=== PATIENT | male | born 1950 | race Caucasian/White ===

== ENCOUNTER 2025-06-22 10:45 | Emergency (ER) | payer MEDICARE, SELFPAY ==
[2025-06-22] VITALS (23 sets, daily range): BP systolic 113–143; BP diastolic 74–89; PULSE 85–103; RESP 9–20; TEMP 36.4–36.7; O2SAT 97–100
--- NOTE | ~2025-06-22 | XR_ITS ---
XR chest 2V 06/22/2025 13:40 Indication: Weakness after fall Procedure: 2 view chest Comparison: No prior studies for comparison. Findings: Subtle basilar airspace disease. Small pleural effusions. Atherosclerosis and ectasia of the aorta. Heart size normal. No acute osseous abnormality identified. There is diffuse idiopathic skeletal hyperostosis (DISH) of the thoracic spine. Impression: 1: Subtle posterior basilar airspace disease, best seen on the lateral view. Differential diagnosis includes atelectasis and pneumonia. 2: Small pleural effusions. Reviewed, dictated and finalized at location O. Impression: 1: Subtle posterior basilar airspace disease, best seen on the lateral view. Di fferential diagnosis includes atelectasis and pneumonia. 2: Small pleural effusions.
--- NOTE | ~2025-06-22 | CT_ITS ---
EXAMINATION: CT brain wo con DATE: 06/22/2025 13:27 INDICATION: Fall. Ataxia. TECHNIQUE: Computed tomography (CT) of the head was performed without intravenous contrast. Sagittal and coronal reconstructions were performed. The mA was adjusted according to patient size. Iterative reconstruction technique was employed. The dose-length product was 756.67 mGy-cm. COMPARISON: None FINDINGS: No fracture. No acute intracranial hemorrhage, acute infarction or abnormal extra axial fluid collection. There is mild scattered white matter hypoattenuation consistent with chronic small vessel ischemic disease. Symmetric prominence of the sulci and ventricles consistent with mild age-appropriate d iffuse cerebral volume loss. Ventricles are normal and symmetric. No mass/mass effect. The orbits, paranasal sinuses and mastoid air cells are normal. Intracranial calcified cerebral atherosclerosis is noted. IMPRESSION: 1. No fracture or acute intracranial process. 2. Age-related changes including mild diffuse on loss and mild scattered white matter hypoattenuation consistent with chronic small vessel ischemic disease. Reviewed, dictated and finalized at location A.
--- NOTE | 2025-06-22 12:55 | ED.FALL ---
HPI - Fall General Chief Complaint: Fall Stated Complaint: loosing balance, multiple falls, start end of February Time Seen by Provider: 06/22/25 12:02 History of Present Illness HPI Narrative: Patient is a 75-year-old male who presents ER with increased weakness and falls worsening over last 2 and half months. Patient has history of pancreatic cancer and underwent a Whipple surgery 1 year ago. He was cared for at [facility]. He recently moved down here due to inability to afford living in [place] and he has family who lives down here. Patient denies any lateralizing weakness to the arms or legs. He has gone from walking with a cane to walking with a walker and still falling. No new numbness or tingling. He has been eating and drinking. Reports his pancreatic cancer may have spread to his lungs and he had had a surveillance CT several months ago and does not believe there is any change. He is not receiving any chemotherapy. Related Data Allergies Allergy/AdvReac Type Severity Reaction Status Date / Time No Known Allergies Allergy Verified 06/22/25 10:47 Review of Systems Review of Systems: All systems reviewed & are unremarkable except as noted in HPI and below Constitutional: Constitutional: Reports no additional constitutional complaints Cardiovascular: Cardiovascular: Reports no additional cardiovascular complaints Respiratory: Respiratory: Reports no additional respiratory complaints Gastrointestinal: Gastrointestinal: Reports no additional gastrointestinal complaints PMFSH Past Medical History Medical History (Updated 06/22/25 @ 16:08 by Yovany Prabhakar MD) Pancreatic cancer Surgical History Surgical History (Updated 06/22/25 @ 12:58 by Yovany Prabhakar MD) H/O Whipple procedure Exam Narrative: GENERAL: Frail-appearing, well-nourished, and in no acute distress. HEAD: Normocephalic, atraumatic. ENT: Mucous membranes moist. CHEST: Clear to auscultation. No respiratory distress. HEART: Regular rate and rhythm. Normal peripheral pulses. ABDOMEN: Soft, nontender, nondistended. EXTREMITIES: Normal range of motion. No edema. SKIN: Warm, dry, no rash. NEURO: Alert and oriented x3. Normal finger-nose testing and [id number] testing. No upper/lower extremity drift. Clear speech with no dysarthria or expressive aphasia. No facial droop. Course Course Emergency Course: Patient resting comfortably. Up and ambulatory with his walker without issue. No abnormal labs or imaging. I do not feel he has pneumonia. Vital Signs Vital signs: Vital Signs Temperature 97.5 F L 06/22/25 11:13 Pulse Rate 95 06/22/25 11:13 Respiratory Rate 16 06/22/25 11:13 Blood Pressure 129/74 06/22/25 11:13 Pulse Oximetry 99 06/22/25 11:13 Oxygen Delivery Room Air 06/22/25 11:13 Temperature 98.0 F 06/22/25 12:06 Pulse Rate 86 06/22/25 14:45 Respiratory Rate 10 L 06/22/25 14:45 Blood Pressure 130/79 06/22/25 14:31 Pulse Oximetry 97 06/22/25 14:45 Oxygen Delivery Room Air 06/22/25 12:06 MDM - Fall Lab Data 06/22/25 13:00 06/22/25 14:11 Labs: Lab Results 06/22/25 06/22/25 Range/Units 13:00 14:11 WBC 6.7 (4.5-10.0) K/mm3 RBC 4.71 (4.6-6.20) M/mm3 Hgb 12.8 L (14.0-18.0) g/dL Hct 40.0 L (42.0-52.0) % MCV 84.9 (80-100) fl MCH 27.2 (26-34) pg MCHC 32.0 (32-36) g/dl RDW 16.0 H (11.5-14.5) % Plt Count 184 (150-375) k/mm3 MPV 11.2 H (7.4-10.4) fl Immature Gran % (Auto) 0.4 (0-0.5) % Neut % (Auto) 70.3 (45.5-73.1) % Lymph % (Auto) 18.4 (18.3-44.2) % [place] % (Auto) 9.3 H (2.6-8.5) % Eos % (Auto) 1.0 (0-4.4) % Baso % (Auto) 0.6 (0.2-1.2) % Lymph # (Auto) 1.23 (0.9-3.2) K/mm3 [place] # (Auto) 0.6 (0.1-0.6) K/mm3 Eos # (Auto) 0.1 (0-0.3) K/mm3 Baso # (Auto) 0.0 (0.0-0.1) K/mm3 Abs Immat Gran (auto) 0.03 (0.00-0.031) K/mm3 Absolute Neuts (auto) 4.7 (1.3-6.7) K/mm3 Absolute Nucleated RBC 0.000 (0.0-0.012) K/mm3 Nucleated RBC % 0.0 (0.0-0.2) % PT 18.0 H (11.1-14.7) Seconds INR 1.5 APTT 34.9 (22.3-36.8) Seconds Sodium 136 L (137-145) mmol/L Potassium 3.4 (3.4-5.0) mmol/L Chloride 103 (98-107) mmol/L Carbon Dioxide 25 (22-30) mmol/L Anion Gap 8 (4-12) mmol/L BUN 13 (9-20) mg/dL Creatinine 0.59 L (0.7-1.3) mg/dL Estim Creat Clear Calc 97 ml/min Estimated GFR > 60 (59 - ) Glucose 85 (65-110) mg/dL Calcium 8.6 (8.4-10.2) mg/dL Total Bilirubin 1.1 (0.2-1.3) mg/dL Direct Bilirubin 0.0 (0-0.3) mg/dL AST 32 (17-59) U/L ALT 19 (6-50) U/L Alkaline Phosphatase 122 (38-126) U/L Ammonia 28 (9-30) umol/L Total Protein 6.8 (6.3-8.2) g/dL Albumin 3.3 L (3.5-5.1) g/dL Imaging Data Radiologist's impression: ITS Impressions Head CT 06/22/25 13:30 IMPRESSION: 1. No fracture or acute intracranial process. 2. Age-related changes including mild diffuse on loss and mild scattered white matter hypoattenuation consistent with chronic small vessel ischemic disease. Chest X-Ray 06/22/25 13:46 Impression: 1: Subtle posterior basilar airspace disease, best seen on the lateral view. Differential diagnosis includes atelectasis and pneumonia. 2: Small pleural effusions. Discharge Plan Discharge Clinical Impression: Generalized weakness Patient Disposition: Home Condition: Stable Instructions: Weakness (ED) Additional Instructions: Return to the ER if you have fever over 101F, you cannot keep down food/water, you lose consciousness, or you have other concerns. Patient Language: Citizen Of [place] Follow-up/Referrals: Anthony Gil MD [Primary Care Provider, [facility]] - 1 Week
[2025-06-22 13:06] LABS: Hematocrit 40.0 % (42.0-52.0); Hemoglobin 12.8 g/dL (14.0-18.0); Immature Granulocyte Percent A 0.4 % (0-0.5); Lymphocytes Absolute Auto 1.23 K/mm3 (0.9-3.2); Mean Corpuscular HGB Conc 32.0 g/dl (32-36); Mean Corpuscular Hemoglobin 27.2 pg (26-34); Mean Corpuscular Volume 84.9 fl (80-100); Nucleated Red Blood Cells Absolute Auto 0.000 K/mm3 (0.0-0.012); Nucleated Red Blood Cells Perc 0.0 % (0.0-0.2); Platelet Count Result 184 k/mm3 (150-375); Red Blood Count 4.71 M/mm3 (4.6-6.20); White Blood Count 6.7 K/mm3 (4.5-10.0)
[2025-06-22] MEDS: SODIUM CHLORIDE 0.9% IV 1,000 ML 999 ML IV CONT (13:14)
[2025-06-22 14:32] LABS: INR 1.5; Prothrombin Time 18.0 Seconds (11.1-14.7)
[2025-06-22 14:33] LABS: Partial Thromboplastin Time 34.9 Seconds (22.3-36.8)
[2025-06-22 14:41] LABS: Ammonia 28 umol/L (9-30)
[2025-06-22 14:42] LABS: Anion Gap 8 mmol/L (4-12); Blood Urea Nitrogen 13 mg/dL (9-20); Calcium 8.6 mg/dL (8.4-10.2); Carbon Dioxide 25 mmol/L (22-30); Chloride 103 mmol/L (98-107); Estimated CRCL calculation 97 ml/min; Estimated Glomerular Filt Rate > 60; Glucose 85 mg/dL (65-110); Potassium 3.4 mmol/L (3.4-5.0); Sodium 136 mmol/L (137-145)
[2025-06-22 14:46] LABS: Alanine Aminotransferase 19 U/L (6-50); Albumin Level 3.3 g/dL (3.5-5.1); Alkaline Phosphatase 122 U/L (38-126); Aspartate Amino Transferase 32 U/L (17-59); Bilirubin,Total 1.1 mg/dL (0.2-1.3); Total Protein 6.8 g/dL (6.3-8.2)
--- NOTE | 2025-06-22 15:44 | PC.NURSE ---
RN ambulated patient with one person assist, patient MD delrois notified.
== END 2025-06-22 16:23 | disposition home or self-care (01) ==
PROVIDERS: Emergency Provider Emergency Medicine; PCP Family Medicine
DX: R53.1 Weakness (principal); Z85.07 Personal history of malignant neoplasm of pancreas; J90 Pleural effusion, not elsewhere classified; R91.8 Other nonspecific abnormal finding of lung field
CPT/HCPCS: 36415; 70450; 71046; 80048; 80076; 82140; 85025; 85610; 85730; 96360; 99284; J7030

== ENCOUNTER 2025-06-28 13:51 | Inpatient (IN) | payer MEDICARE, MEDICAID, SELFPAY ==
[2025-06-28] VITALS (17 sets, daily range): BP systolic 112–152; BP diastolic 72–96; PULSE 70–92; RESP 12–18; TEMP 36.7; O2SAT 97–100
--- NOTE | ~2025-06-28 | XR_ITS ---
EXAMINATION: XR abdomen/kub 1V DATE: 06/30/2025 08:58 INDICATION: Kidney stone TECHNIQUE: A supine view of the abdomen on 2 radiographs was obtained. COMPARISON: CT dated 06/28/2025 FINDINGS: No change in position of the previously noted stones in the mid and distal right ureter, the former projecting over the right transverse process of L5 and the latter projecting slightly caudal to the right sacroiliac joint. Nonspecific bowel gas pattern with no dilated loops of gas-filled bowel to suggest obstruction. Multiple surgical clips in the right abdomen. Branching pneumobilia projecting over the liver in the right quadrant. Lung bases are clear. Heart size is normal. Severe lumbar spondylosis. IMPRESSION: 1. Unchanged stones in the mid and distal right ureter. 2. Persistent pneumobilia. Reviewed, dictated and finalized at location A.
--- NOTE | ~2025-06-28 | CT_ITS ---
EXAMINATION: CT abdomen pelvis w con DATE: 07/09/2025 11:22 INDICATION: Abdominal pain TECHNIQUE: Computed tomography (CT) of the abdomen and pelvis was performed with 100 mL Omnipaque-350 intravenous contrast. Automated exposure control and iterative reconstruction technique were employed. The dose-length product was 703.86 mGy-cm. COMPARISON: 06/28/2025 FINDINGS: Interval increase in at least moderate-sized bilateral posterior layering pleural effusion. There is partial collapse of the bilateral lower lobes. Small calcified nodules in the collapsed right lower lobe consistent with old granulomatous disease. Heart size normal. Atherosclerotic coronary artery calcific lesions. No pericardial effusion. Shrunken nodular cirrhotic liver. Mild splenomegaly measuring 14.1 cm in maximal length which along with paraesophageal varices consistent with secondary portal venous hypertension. Pancreas and bilateral adrenal glands are normal. There are bilateral renal cysts the larger on the left measuring 1 cm. Mild right hydronephrosis with right internal ureteral stent in expected position with proximal loop formed in the right renal pelvis and distal loop in the bladder. There is a 2 mm stone in a deep and lower pole calyx of the right kidney and additional tiny stone in the bladder inferior and lateral to the right ureterovesicular junction. No evident ureteral stones. Again seen are postoperative change of prior Whipple procedure with resection of the head of the pancreas and gallbladder and status post Venus-en-Y gastric bypass procedure. Again noted is a poorly defined possibly 4 x 3 cm soft tissue density mass at the resection bed which extends cephalad to the level the main portal vein which appears severely narrowed as it crosses anterior to the inferior vena cava which is concerning for recurrent pancreatic cancer. There is diffuse edematous wall thickening of the colon several loops of small bowel most likely due to hepatic arthropathy/colopathy although differential includes infectious or inflammatory enteritis/colitis. No bowel obstruction. Small to moderate amount of ascites scattered throughout the abdomen and pelvis likely related to liver disease. No abscess. Densities midline surgical scar with ventral diastases. Extensive body wall edema. Severe lumbar spondylosis with L5- S1 anterior and posterior spinal fusion. IMPRESSION: 1. Postoperative change of prior Whipple procedure with 0.5] 4 x 3 similar soft tissue density mass at the resection bed which appears to severely narrow the main portal vein suspicious for recurrent pancreatic cancer. 2. Shrunken nodular cirrhotic liver with mild splenomegaly and paraesophageal varices consistent with secondary portal venous hypertension. 3. Right nephrolithiasis with right intrarenal stent in expected position. A stone previously seen in the right ureter is no longer visualized and has likely passed with tiny stone versus stone fragment in the dependent bladder. 4. Small to moderate amount of ascites likely related to liver disease. 5. Moderate-sized bilateral pleural effusions with partial collapse of the bilateral lower lobes. Reviewed, dictated and finalized at location A. IMPRESSION: 1. Postoperative change of prior Whipple procedure with 0.5] 4 x 3 similar soft tissue density mass at the resection bed which appears to severely narrow the main portal vein suspicious for recurrent pancreatic cancer. 2. Shrunken nodular cirrhotic liver with mild splenomegaly and paraesophageal v arices consistent with secondary portal venous hypertension. 3. Right nephrolithiasis with right intrarenal stent in expected position. A st one previously seen in the right ureter is no longer visualized and has likely passed with tiny stone versus stone fragment in the dependent bladder. 4. Small to moderate amount of ascites likely related to liver disease. 5. Moderate-sized bilateral pleural effusions with partial collapse of the bila teral lower lobes.
--- NOTE | ~2025-06-28 | CT_ITS ---
EXAMINATION: CT abdomen pelvis w con DATE: 06/28/2025 19:01 INDICATION: Lower abdominal pain and diarrhea TECHNIQUE: Computed tomography (CT) of the abdomen and pelvis was performed with 100 mL Omnipaque-350 intravenous contrast. Automated exposure control and iterative reconstruction technique were employed. The dose-length product was 337.33 mGy-cm. COMPARISON: None FINDINGS: Small to moderate-sized bilateral posterior layering pleural effusions with dependent atelectasis in the bilateral lower lobes. Heart size is normal. No pericardial effusion. Atherosclerotic coronary artery calcific location. Shrunken nodular cirrhotic liver. Nondependent pneumobilia in the liver and c ommon bile duct likely related to prior Whipple procedure with resection of the head of the pancreas, gallbladder and duodenum with gastric bypass. There is a poorly defined approximately 4 cm diameter soft tissue density mass in the region of the surgical clips at the site of the resected head of the pancreas which severely narrows the main portal vein at this location which is concerning for recurrent pancreatic cancer. Multiple paraesophageal varices likely result from secondary portal venous hypertension. Spleen, the remaining body and tail of the pancreas, bilateral adrenal glands are normal. Subcentimeter left renal cyst. There is mild right hydronephrosis with 6 x 4 mm stone in the mid right ureter. There is additional 7 mm stone at the distalmost right ureter within 1 cm of the ureteropelvic junction. Bladder is normal. There is diffuse colonic wall thickening most severe proximally centered at the hepatic flexure. No dilated bowel to suggest obstruction. There is diffuse mesenteric and body wall edema. Small amount of free fluid in the pelvis. No abscess or free intraperitoneal gas. Midline surgical scar with ventral diastases. Severe lumbar spondylosis. Anterior and posterior spinal fusion at L5-S1. Moderate bilateral hip osteoarthritis. IMPRESSION: 1. Postoperative change of prior Whipple procedure with proximal 24 cm ill- defined soft tissue mass at the region of the resected head of the pancreas which severely narrows the main portal vein suspicious for recurrent pancreatic cancer. 2. Obstructing stones in the mid and distal right ureter with mild right hydronephrosis. 3. Shrunken nodular cirrhotic liver. 4. Diffuse colonic wall thickening, severe in the proximal colon. Differential would include colitis either infectious, inflammatory or ischemic in etiology or edema secondary to liver disease or portal venous hypertension. 5. Small to moderate-sized bilateral pleural effusions, diffuse mild mesenteric and body wall edema and small amount of ascites. Reviewed, dictated and finalized at location A. IMPRESSION: 1. Postoperative change of prior Whipple procedure with proximal 24 cm ill-defi manolo soft tissue mass at the region of the resected head of the pancreas which s everely narrows the main portal vein suspicious for recurrent pancreatic cancer . 2. Obstructing stones in the mid and distal right ureter with mild right hydron ephrosis. 3. Shrunken nodular cirrhotic liver. 4. Diffuse colonic wall thickening, severe in the proximal colon. Differential would include colitis either infectious, inflammatory or ischemic in etiology o r edema secondary to liver disease or portal venous hypertension. 5. Small to moderate-sized bilateral pleural effusions, diffuse mild mesenteric and body wall edema and small amount of ascites.
--- NOTE | ~2025-06-28 | XR_ITS ---
XR abdomen/kub 1V 07/06/2025 10:12 Indication: Abdominal pain Procedure: KUB Comparison: 06/30/2025 Findings: There is residual contrast in the stomach and small bowel. There is a right internal ureteral stent present. Nonobstructive bowel pattern. No renal stones identified. There are severe lumbar spondylosis. No acute osseous abnormality. Impression: 1: No acute abdominal abnormality. Reviewed, dictated and finalized at location O. Impression: 1: No acute abdominal abnormality.
--- NOTE | ~2025-06-28 | XR_ITS ---
XR chest 1V portable 07/03/2025 17:15 Indication: Shortness of breath Procedure: AP portable chest Comparison: 06/22/2025 Findings: Shallow inspiration. There are bilateral perihilar and bibasilar infiltrates, suspicious for pneumonia. No significant effusion. No pneumothorax. Impression: 1: Interval development of bilateral perihilar and basilar airspace disease, suspicious for pneumonia. Reviewed, dictated and finalized at location O. Impression: 1: Interval development of bilateral perihilar and basilar airspace disease, otero spicious for pneumonia.
--- NOTE | ~2025-06-28 | XR_ITS ---
MODIFIED ESOPHAGRAM HISTORY: Dysphagia. TECHNIQUE: Modified barium esophagram was performed on 07/06/2025. I administered fluoroscopy and performed the exam with speech pathologist. Patient was seated for lateral fluoroscopic imaging for ingestion of thin liquids, pudding, solids and quantified amounts, followed by thin liquids in uncontrolled amounts. This was recorded on tape. A single fluoroscopic spot image was also recorded. The DAP for this procedure was 2.054 Gycm2. The amount of fluoroscopy time used during this procedure was 3.8 minutes. FINDINGS: Oral stage: Adequate function. Pharyngeal stage: Reduced laryngeal elevation and tongue base retraction. There is vallecular and piriform sinus residue. There is trace laryngeal penetration without aspiration on couple calcified thin and mildly thickened liquids.. Cervical/esophageal stage: Adequate function. IMPRESSION: Fragile dysphagia laryngeal penetration without aspiration. Please correlate with speech pathologist findings and specific feeding recommendations. Reviewed, dictated and finalized at location A. IMPRESSION: Fragile dysphagia laryngeal penetration without aspiration. Please correlate with speech pathologist findings and specific feeding recommendation s.
--- NOTE | ~2025-06-28 | XR_ITS ---
EXAMINATION: XR retrograde pyelo w/stent RT DATE: 06/30/2025 15:24 INDICATION: Right internal ureteral stent placement TECHNIQUE: Fluoroscopic images from a right internal ureteral stent placement are submitted for review. 20 seconds of fluoroscopy time. 6 fluoroscopic images FINDINGS: There is a right double-J internal ureteral stent projecting in expected position, with proximal [place] loop at the level of the renal pelvis. The distal loop is not imaged.. IMPRESSION: 1. Right internal ureteral stent placement. Please refer to real-time procedural findings for details. Reviewed, dictated and finalized at location O. IMPRESSION: 1. Right internal ureteral stent placement. Please refer to real-time procedu ral findings for details.
--- NOTE | 2025-06-28 17:44 | ED_ITS ---
HPI - Nausea/Vomiting/Diarrhea General Chief complaint: Nausea/Vomiting/Diarrhea <WILSON Langston Last Filed: 06/29/25 01:47> Stated complaint: diarrhea <WILSON Langston Last Filed: 06/29/25 01:47> Time Seen by Provider: 06/28/25 16:15 <WILSON Langston Last Filed: 06/29/25 01:47> Source: patient <WILSON Langston Last Filed: 06/29/25 01:47> Mode of arrival: ambulatory <WILSON Langston Last Filed: 06/29/25 01:47> Limitations: no limitations <WILSON Langston Last Filed: 06/29/25 01:47> History of Present Illness HPI Narrative: Patient is a 75 y/o male, with PMH of pancreatic CA s/p Whipple procedure 1 year ago, who presents to the ED with c/o diarrhea. Patient reports he has had persistent diarrhea for the past 10 days. Has had multiple bowel movements per day. States it has been dark in color at times, but he did take a few doses of Pepto-Bismol over the past week. He reports some discomfort throughout his left lower abdomen, mild generalized weakness. Denies nausea, vomiting, fevers, bright red rectal bleeding. Denies anticoagulation use, recent antibiotics, recent travel. Patient recently moved from [facility]. He was previously followed for his Whipple at [facility]. <WILSON Langston Last Filed: 06/29/25 01:47> Related Data Home medications: Home Medications ?Medication ?Instructions ?Recorded ?Confirmed ?Last Taken ?Type clonazepam 0.5 mg tablet 0.5 mg PO HS 06/29/25 Unknown History duloxetine 60 mg capsule,delayed 60 mg PO DAILY@0800 0 06/29/25 06/29/25 06/29/25 History release finasteride 5 mg tablet 5 mg PO DAILY@0800 06/29/25 06/29/25 Unknown History tamsulosin 0.4 mg capsule 0.4 mg PO HS 06/29/25 Unknown History trazodone 150 mg tablet 150 mg PO HS 06/29/25 Unknown History <Jolynn Gregory PA-C - Last Filed: 06/29/25 01:47> Allergies/Adverse reactions: Allergies Allergy/AdvReac Type Severity Reaction Status Date / Time No Known Allergies Allergy Verified 06/22/25 10:47 <Jolynn Gregory PA-C - Last Filed: 06/29/25 01:47> Review of Systems 2 Review of Systems: All systems reviewed & are unremarkable except as noted in HPI. <Jolynn Gregory PA-C - Last Filed: 06/29/25 01:47> All systems reviewed & are unremarkable except as noted in HPI and below < Jolynn Gregory PA-C - Last Filed: 06/29/25 01:47> PMFSH Past Medical History Medical History: Medical History Pancreatic cancer <Jolynn Gregory PA-C - Last Filed: 06/29/25 01:47> Surgical History Surgical History: Surgical History H/O Whipple procedure <Jolynn Gregory PA-C - Last Filed: 06/29/25 01:47> Exam 2 Narrative: GENERAL: Well appearing, well-nourished, non-toxic, in no acute distress. HEAD: Normocephalic, atraumatic. RESPIRATORY: Airway patent, respirations nonlabored. Clear to auscultation bilaterally, no rales, rhonchi, wheezing. CARDIOVASCULAR: Regular rate and rhythm without murmurs, rubs, or gallops. ABDOMINAL: Soft, mild tenderness throughout left lower abdomen, suprapubic region, nondistended. Normoactive BS. MUSCULOSKELETAL: Moves all extremities. No gross deformities. SKIN: Warm, dry, normal color. NEURO: A&O X3. Speech clear. Cranial nerves II-XII grossly intact. Steady gait. No ataxic movements. PSYCHIATRIC: Appropriate mood and affect. Normal interaction. <Jolynn Gregory PA-C - Last Filed: 06/29/25 01:47> Course PACK WORKER/PA Physician Supervision This visit was performed by both the physician and an APC. I performed all aspects of the MDM as documented <Jeb Cope MD - Last Filed: 06/30/25 06:17> Reevaluation(s) Reevaluation #1: Patient has been resting comfortably during the day. Patient did make a suicidal statement and patient now has a sitter. Still awaiting bed placement for [place]. <Solo Han MD - Last Filed: 06/29/25 16:36> Date: 06/30/25 <Hector Arnold MD - Last Filed: 06/30/25 09:14> Time: 08:30 <Hector Arnold MD - Last Filed: 06/30/25 09:14> Reevaluation #2: I assumed care of this patient at shift change with pending disposition to [place] for oncology bed. I did see the patient he was complaining of right- sided pain which started few minutes ago now subsided. He denies any nausea or vomiting. Abdomen is benign. I did review his CT scan which shows a 6 mm x 4 mm stone in the right mid ureter. This could be a potential cause of him having abdominal pain. Discussed with Dr. Bird sick us recommended him to be NPO will take him to OR. I also notified Dr. Miller , will admit , pt is agreeable with admission and procedure <Hector Arnold MD - Last Filed: 06/30/25 09:14> Vital Signs Vital signs: Vital Signs Temperature 36.7 C 06/28/25 14:22 Pulse Rate 85 06/28/25 14:22 Respiratory Rate 18 06/28/25 14:22 Blood Pressure 116/72 06/28/25 14:22 Pulse Oximetry 99 06/28/25 14:22 Oxygen Delivery Room Air 06/28/25 14:22 Temperature 36.8 C 06/29/25 10:31 Pulse Rate 86 06/30/25 07:46 Respiratory Rate 14 06/30/25 07:15 Blood Pressure 102/66 06/30/25 07:01 Pulse Oximetry 100 06/30/25 07:46 Oxygen Delivery Room Air 06/28/25 18:00 <Jolynn Gregory PA-C - Last Filed: 06/29/25 01:47> Vital Signs Temperature 36.7 C 06/28/25 14:22 Pulse Rate 85 06/28/25 14:22 Respiratory Rate 18 06/28/25 14:22 Blood Pressure 116/72 06/28/25 14:22 Pulse Oximetry 99 06/28/25 14:22 Oxygen Delivery Room Air 06/28/25 14:22 Temperature 36.8 C 06/29/25 10:31 Pulse Rate 86 06/30/25 07:46 Respiratory Rate 14 06/30/25 07:15 Blood Pressure 102/66 06/30/25 07:01 Pulse Oximetry 100 06/30/25 07:46 Oxygen Delivery Room Air 06/28/25 18:00 <Jeb Cope MD - Last Filed: 06/30/25 06:17> Vital Signs Temperature 36.7 C 06/28/25 14:22 Pulse Rate 85 06/28/25 14:22 Respiratory Rate 18 06/28/25 14:22 Blood Pressure 116/72 06/28/25 14:22 Pulse Oximetry 99 06/28/25 14:22 Oxygen Delivery Room Air 06/28/25 14:22 Temperature 36.8 C 06/29/25 10:31 Pulse Rate 86 06/30/25 07:46 Respiratory Rate 14 06/30/25 07:15 Blood Pressure 102/66 06/30/25 07:01 Pulse Oximetry 100 06/30/25 07:46 Oxygen Delivery Room Air 06/28/25 18:00 <Solo Han MD - Last Filed: 06/29/25 16:36> Vital Signs Temperature 36.7 C 06/28/25 14:22 Pulse Rate 85 06/28/25 14:22 Respiratory Rate 18 06/28/25 14:22 Blood Pressure 116/72 06/28/25 14:22 Pulse Oximetry 99 06/28/25 14:22 Oxygen Delivery Room Air 06/28/25 14:22 Temperature 36.8 C 06/29/25 10:31 Pulse Rate 86 06/30/25 07:46 Respiratory Rate 14 06/30/25 07:15 Blood Pressure 102/66 06/30/25 07:01 Pulse Oximetry 100 06/30/25 07:46 Oxygen Delivery Room Air 06/28/25 18:00 <Hector Arnold MD - Last Filed: 06/30/25 09:14> MDM - Nausea/Vomiting/Diarrhea MDM Narrative Medical decision making narrative: Patient presented to ED with 10 day history of persistent diarrhea, generalized weakness. Vital signs are stable upon arrival. Patient is in no acute distress. Afebrile here. Report that stool is somewhat dark in color. Rectal exam was performed and guaiac negative. He is not on anticoagulation. Likely related to his Pepto-Bismol use. Cbc without leukocytosis or anemia. CMP is fairly unremarkable. Stable electrolytes. Normal magnesium. Lactic acid within normal range at 1.6. Total bilirubin slightly elevated to 1.5. AST, ALT within normal range. Alk-phos minimally elevated at 132. Lipase within normal range. UA with 1+ ketones, greater than 100 RBC, no significant signs of infection. Sent for culture. CT of the abdomen/pelvis was obtained and showing evidence of diffuse colonic wall thickening, consistent with colitis. Consistent with clinical picture. Likely inflammatory, however given prolonged nature of symptoms, will likely cover with antibiotics for infectious etiology. CT showing post surgical changes s/p Whipple procedure with 4 cm mass near head of pancreas, severely narrowing the main portal vein, suspicious for recurrent pancreatic CA. There is also evidence of obstructing stones in the mid and distal right ureter with mild right hydronephrosis: There is mild right hydronephrosis with 6 x 4 mm stone in the mid right ureter. There is additional 7 mm stone at the distalmost right ureter within 1 cm of the ureteropelvic junction. Discussed these findings with patient. Patient reports he has not had any imaging of his abdomen related to his surgery since February. Does not have anyone in the area that he is planning to follow up with at this time. He does have history of previous kidney stones. Reports he has had slight difficulty urinating over the past couple of days as well as his urine has been darker in color. Denies gross hematuria. Denies right sided flank or abdominal pain at this time. No evidence of septic stone. Discussed case with Dr. Krishnamurthy, GI at [facility], recommended transfer for more advanced GI imaging/evaluation given portal vein narrowing. Recommended admission under medicine team and oncology on board as well. Patient accepted for transfer by Dr. Moreno, hospitalist, pending bed placement. Patient is in agreement with plan and transfer. Care signed out to Dr. Cope at shift change pending bed placement at [facility]. < Jolynn Gregory PA-C - Last Filed: 06/29/25 01:47> Patient presented to ED with 10 day history of persistent diarrhea, generalized weakness. Vital signs are stable upon arrival. Patient is in no acute distress. Afebrile here. Report that stool is somewhat dark in color. Rectal exam was performed and guaiac negative. He is not on anticoagulation. Likely related to his Pepto-Bismol use. Cbc without leukocytosis or anemia. CMP is fairly unremarkable. Stable electrolytes. Normal magnesium. Lactic acid within normal range at 1.6. Total bilirubin slightly elevated to 1.5. AST, ALT within normal range. Alk-phos minimally elevated at 132. Lipase within normal range. UA with 1+ ketones, greater than 100 RBC, no significant signs of infection. Sent for culture. CT of the abdomen/pelvis was obtained and showing evidence of diffuse colonic wall thickening, consistent with colitis. Consistent with clinical picture. Likely inflammatory, however given prolonged nature of symptoms, will likely cover with antibiotics for infectious etiology. CT showing post surgical changes s/p Whipple procedure with 4 cm mass near head of pancreas, severely narrowing the main portal vein, suspicious for recurrent pancreatic CA. There is also evidence of obstructing stones in the mid and distal right ureter with mild right hydronephrosis: There is mild right hydronephrosis with 6 x 4 mm stone in the mid right ureter. There is additional 7 mm stone at the distalmost right ureter within 1 cm of the ureteropelvic junction. Discussed these findings with patient. Patient reports he has not had any imaging of his abdomen related to his surgery since February. Does not have anyone in the area that he is planning to follow up with at this time. He does have history of previous kidney stones. Reports he has had slight difficulty urinating over the past couple of days as well as his urine has been darker in color. Denies gross hematuria. Denies right sided flank or abdominal pain at this time. No evidence of septic stone. Discussed case with Dr. Krishnamurthy, GI at [facility], recommended transfer for more advanced GI imaging/evaluation given portal vein narrowing. Recommended admission under medicine team and oncology on board as well. Patient accepted for transfer by Dr. Moreno, hospitalist, pending bed placement. Patient is in agreement with plan and transfer. Care signed out to Dr. Cope at shift change pending bed placement at [facility]. Currently we are still waiting on a bed at [place]. <Jeb Cope MD - Last Filed: 06/30/25 06:17> Medical Records Attestation: I reviewed the patient's medical records. <Jolynn Gregory PA-C - Last Filed: 06/29/25 01:47> Lab Data Attestation: I reviewed the patient's lab results. <Jolynn Gregory PA-C - Last Filed: 06/29/25 01:47> Result diagrams: 06/28/25 17:36 06/30/25 05:18 <Jolynn Gregory PA-C - Last Filed: 06/29/25 01:47> Labs: Lab Results 06/28/25 06/30/25 Range/Units 17:36 05:18 WBC 8.4 (4.5-10.0) K/mm3 RBC 4.99 (4.6-6.20) M/mm3 Hgb 13.5 L (14.0-18.0) g/dL Hct 41.8 L (42.0-52.0) % MCV 83.8 (80-100) fl MCH 27.1 (26-34) pg MCHC 32.3 (32-36) g/dl RDW 16.1 H (11.5-14.5) % Plt Count 196 (150-375) k/mm3 MPV 10.2 (7.4-10.4) fl Immature Gran % (Auto) 0.4 (0-0.5) % Neut % (Auto) 67.0 (45.5-73.1) % Lymph % (Auto) 21.0 (18.3-44.2) % Pender % (Auto) 9.2 H (2.6-8.5) % Eos % (Auto) 1.7 (0-4.4) % Baso % (Auto) 0.7 (0.2-1.2) % Lymph # (Auto) 1.76 (0.9-3.2) K/mm3 Pender # (Auto) 0.8 H (0.1-0.6) K/mm3 Eos # (Auto) 0.1 (0-0.3) K/mm3 Baso # (Auto) 0.1 (0.0-0.1) K/mm3 Abs Immat Gran (auto) 0.03 (0.00-0.031) K/mm3 Absolute Neuts (auto) 5.6 (1.3-6.7) K/mm3 Absolute Nucleated RBC 0.000 (0.0-0.012) K/mm3 Nucleated RBC % 0.0 (0.0-0.2) % Sodium 133 L 134 L (137-145) mmol/L Potassium 3.7 3.2 L (3.4-5.0) mmol/L Chloride 100 102 (98-107) mmol/L Carbon Dioxide 26 26 (22-30) mmol/L Anion Gap 7 6 (4-12) mmol/L BUN 11 11 (9-20) mg/dL Creatinine 0.60 L 0.49 L (0.7-1.3) mg/dL Estim Creat Clear Calc 91 109 ml/min Estimated GFR > 60 > 60 (59 - ) Glucose 85 65 (65-110) mg/dL Lactic Acid 1.6 (0.7-2.0) mmol/L Calcium 8.7 8.2 L (8.4-10.2) mg/dL Magnesium 1.8 (1.6-2.3) mg/dL Total Bilirubin 1.5 H (0.2-1.3) mg/dL AST 47 (17-59) U/L ALT 22 (6-50) U/L Alkaline Phosphatase 132 H (38-126) U/L Total Protein 7.7 (6.3-8.2) g/dL Albumin 3.6 (3.5-5.1) g/dL Lipase 56 (23-300) U/L Urine Color Dark yellow (Yellow) Urine Appearance Clear (Clear) Urine pH 5.5 (5.0-9.0) Ur Specific [place] 1.025 (1.001-1.035) Urine Protein Trace (Negative) mg/dL Urine Glucose (UA) Negative (Negative) mg/dL Urine Ketones 1+ H (Negative) mg/dL Ur Blood (Man) 2+ H (Negative) Urine Nitrate Negative (Negative) Urine Bilirubin 1+ H (Negative) Urine Urobilinogen 1.0 (<2.0) mg/dL Leukocyte Esterase Rfl Trace H (Negative) BETHANY/UL Urine RBC >100 H (0-2) /hpf Urine WBC 6-10 H (0-3) /hpf Ur Squamous Epith Cells None seen (Few) /hpf Urine Bacteria None seen /hpf Urine Casts 0-2 <Jolynn Gregory PA-C - Last Filed: 06/29/25 01:47> Lab Results 06/28/25 06/30/25 Range/Units 17:36 05:18 WBC 8.4 (4.5-10.0) K/mm3 RBC 4.99 (4.6-6.20) M/mm3 Hgb 13.5 L (14.0-18.0) g/dL Hct 41.8 L (42.0-52.0) % MCV 83.8 (80-100) fl MCH 27.1 (26-34) pg MCHC 32.3 (32-36) g/dl RDW 16.1 H (11.5-14.5) % Plt Count 196 (150-375) k/mm3 MPV 10.2 (7.4-10.4) fl Immature Gran % (Auto) 0.4 (0-0.5) % Neut % (Auto) 67.0 (45.5-73.1) % Lymph % (Auto) 21.0 (18.3-44.2) % Pender % (Auto) 9.2 H (2.6-8.5) % Eos % (Auto) 1.7 (0-4.4) % Baso % (Auto) 0.7 (0.2-1.2) % Lymph # (Auto) 1.76 (0.9-3.2) K/mm3 Pender # (Auto) 0.8 H (0.1-0.6) K/mm3 Eos # (Auto) 0.1 (0-0.3) K/mm3 Baso # (Auto) 0.1 (0.0-0.1) K/mm3 Abs Immat Gran (auto) 0.03 (0.00-0.031) K/mm3 Absolute Neuts (auto) 5.6 (1.3-6.7) K/mm3 Absolute Nucleated RBC 0.000 (0.0-0.012) K/mm3 Nucleated RBC % 0.0 (0.0-0.2) % Sodium 133 L 134 L (137-145) mmol/L Potassium 3.7 3.2 L (3.4-5.0) mmol/L Chloride 100 102 (98-107) mmol/L Carbon Dioxide 26 26 (22-30) mmol/L Anion Gap 7 6 (4-12) mmol/L BUN 11 11 (9-20) mg/dL Creatinine 0.60 L 0.49 L (0.7-1.3) mg/dL Estim Creat Clear Calc 91 109 ml/min Estimated GFR > 60 > 60 (59 - ) Glucose 85 65 (65-110) mg/dL Lactic Acid 1.6 (0.7-2.0) mmol/L Calcium 8.7 8.2 L (8.4-10.2) mg/dL Magnesium 1.8 (1.6-2.3) mg/dL Total Bilirubin 1.5 H (0.2-1.3) mg/dL AST 47 (17-59) U/L ALT 22 (6-50) U/L Alkaline Phosphatase 132 H (38-126) U/L Total Protein 7.7 (6.3-8.2) g/dL Albumin 3.6 (3.5-5.1) g/dL Lipase 56 (23-300) U/L Urine Color Dark yellow (Yellow) Urine Appearance Clear (Clear) Urine pH 5.5 (5.0-9.0) Ur Specific [place] 1.025 (1.001-1.035) Urine Protein Trace (Negative) mg/dL Urine Glucose (UA) Negative (Negative) mg/dL Urine Ketones 1+ H (Negative) mg/dL Ur Blood (Man) 2+ H (Negative) Urine Nitrate Negative (Negative) Urine Bilirubin 1+ H (Negative) Urine Urobilinogen 1.0 (<2.0) mg/dL Leukocyte Esterase Rfl Trace H (Negative) BETHANY/UL Urine RBC >100 H (0-2) /hpf Urine WBC 6-10 H (0-3) /hpf Ur Squamous Epith Cells None seen (Few) /hpf Urine Bacteria None seen /hpf Urine Casts 0-2 <Jeb Cope MD - Last Filed: 06/30/25 06:17> Lab Results 06/28/25 06/30/25 Range/Units 17:36 05:18 WBC 8.4 (4.5-10.0) K/mm3 RBC 4.99 (4.6-6.20) M/mm3 Hgb 13.5 L (14.0-18.0) g/dL Hct 41.8 L (42.0-52.0) % MCV 83.8 (80-100) fl MCH 27.1 (26-34) pg MCHC 32.3 (32-36) g/dl RDW 16.1 H (11.5-14.5) % Plt Count 196 (150-375) k/mm3 MPV 10.2 (7.4-10.4) fl Immature Gran % (Auto) 0.4 (0-0.5) % Neut % (Auto) 67.0 (45.5-73.1) % Lymph % (Auto) 21.0 (18.3-44.2) % Pender % (Auto) 9.2 H (2.6-8.5) % Eos % (Auto) 1.7 (0-4.4) % Baso % (Auto) 0.7 (0.2-1.2) % Lymph # (Auto) 1.76 (0.9-3.2) K/mm3 Pender # (Auto) 0.8 H (0.1-0.6) K/mm3 Eos # (Auto) 0.1 (0-0.3) K/mm3 Baso # (Auto) 0.1 (0.0-0.1) K/mm3 Abs Immat Gran (auto) 0.03 (0.00-0.031) K/mm3 Absolute Neuts (auto) 5.6 (1.3-6.7) K/mm3 Absolute Nucleated RBC 0.000 (0.0-0.012) K/mm3 Nucleated RBC % 0.0 (0.0-0.2) % Sodium 133 L 134 L (137-145) mmol/L Potassium 3.7 3.2 L (3.4-5.0) mmol/L Chloride 100 102 (98-107) mmol/L Carbon Dioxide 26 26 (22-30) mmol/L Anion Gap 7 6 (4-12) mmol/L BUN 11 11 (9-20) mg/dL Creatinine 0.60 L 0.49 L (0.7-1.3) mg/dL Estim Creat Clear Calc 91 109 ml/min Estimated GFR > 60 > 60 (59 - ) Glucose 85 65 (65-110) mg/dL Lactic Acid 1.6 (0.7-2.0) mmol/L Calcium 8.7 8.2 L (8.4-10.2) mg/dL Magnesium 1.8 (1.6-2.3) mg/dL Total Bilirubin 1.5 H (0.2-1.3) mg/dL AST 47 (17-59) U/L ALT 22 (6-50) U/L Alkaline Phosphatase 132 H (38-126) U/L Total Protein 7.7 (6.3-8.2) g/dL Albumin 3.6 (3.5-5.1) g/dL Lipase 56 (23-300) U/L Urine Color Dark yellow (Yellow) Urine Appearance Clear (Clear) Urine pH 5.5 (5.0-9.0) Ur Specific [place] 1.025 (1.001-1.035) Urine Protein Trace (Negative) mg/dL Urine Glucose (UA) Negative (Negative) mg/dL Urine Ketones 1+ H (Negative) mg/dL Ur Blood (Man) 2+ H (Negative) Urine Nitrate Negative (Negative) Urine Bilirubin 1+ H (Negative) Urine Urobilinogen 1.0 (<2.0) mg/dL Leukocyte Esterase Rfl Trace H (Negative) BETHANY/UL Urine RBC >100 H (0-2) /hpf Urine WBC 6-10 H (0-3) /hpf Ur Squamous Epith Cells None seen (Few) /hpf Urine Bacteria None seen /hpf Urine Casts 0-2 <Solo Han MD - Last Filed: 06/29/25 16:36> Lab Results 06/28/25 06/30/25 Range/Units 17:36 05:18 WBC 8.4 (4.5-10.0) K/mm3 RBC 4.99 (4.6-6.20) M/mm3 Hgb 13.5 L (14.0-18.0) g/dL Hct 41.8 L (42.0-52.0) % MCV 83.8 (80-100) fl MCH 27.1 (26-34) pg MCHC 32.3 (32-36) g/dl RDW 16.1 H (11.5-14.5) % Plt Count 196 (150-375) k/mm3 MPV 10.2 (7.4-10.4) fl Immature Gran % (Auto) 0.4 (0-0.5) % Neut % (Auto) 67.0 (45.5-73.1) % Lymph % (Auto) 21.0 (18.3-44.2) % Pender % (Auto) 9.2 H (2.6-8.5) % Eos % (Auto) 1.7 (0-4.4) % Baso % (Auto) 0.7 (0.2-1.2) % Lymph # (Auto) 1.76 (0.9-3.2) K/mm3 Pender # (Auto) 0.8 H (0.1-0.6) K/mm3 Eos # (Auto) 0.1 (0-0.3) K/mm3 Baso # (Auto) 0.1 (0.0-0.1) K/mm3 Abs Immat Gran (auto) 0.03 (0.00-0.031) K/mm3 Absolute Neuts (auto) 5.6 (1.3-6.7) K/mm3 Absolute Nucleated RBC 0.000 (0.0-0.012) K/mm3 Nucleated RBC % 0.0 (0.0-0.2) % Sodium 133 L 134 L (137-145) mmol/L Potassium 3.7 3.2 L (3.4-5.0) mmol/L Chloride 100 102 (98-107) mmol/L Carbon Dioxide 26 26 (22-30) mmol/L Anion Gap 7 6 (4-12) mmol/L BUN 11 11 (9-20) mg/dL Creatinine 0.60 L 0.49 L (0.7-1.3) mg/dL Estim Creat Clear Calc 91 109 ml/min Estimated GFR > 60 > 60 (59 - ) Glucose 85 65 (65-110) mg/dL Lactic Acid 1.6 (0.7-2.0) mmol/L Calcium 8.7 8.2 L (8.4-10.2) mg/dL Magnesium 1.8 (1.6-2.3) mg/dL Total Bilirubin 1.5 H (0.2-1.3) mg/dL AST 47 (17-59) U/L ALT 22 (6-50) U/L Alkaline Phosphatase 132 H (38-126) U/L Total Protein 7.7 (6.3-8.2) g/dL Albumin 3.6 (3.5-5.1) g/dL Lipase 56 (23-300) U/L Urine Color Dark yellow (Yellow) Urine Appearance Clear (Clear) Urine pH 5.5 (5.0-9.0) Ur Specific [place] 1.025 (1.001-1.035) Urine Protein Trace (Negative) mg/dL Urine Glucose (UA) Negative (Negative) mg/dL Urine Ketones 1+ H (Negative) mg/dL Ur Blood (Man) 2+ H (Negative) Urine Nitrate Negative (Negative) Urine Bilirubin 1+ H (Negative) Urine Urobilinogen 1.0 (<2.0) mg/dL Leukocyte Esterase Rfl Trace H (Negative) BETHANY/UL Urine RBC >100 H (0-2) /hpf Urine WBC 6-10 H (0-3) /hpf Ur Squamous Epith Cells None seen (Few) /hpf Urine Bacteria None seen /hpf Urine Casts 0-2 <Hector Arnold MD - Last Filed: 06/30/25 09:14> Imaging Data Attestation: I personally reviewed and interpreted this imaging study as follows: < Jolynn Gregory PA-C - Last Filed: 06/29/25 01:47> Radiologist's impression: ITS Impressions Abdomen/Pelvis CT 06/28/25 19:37 IMPRESSION: 1. Postoperative change of prior Whipple procedure with proximal 24 cm ill- defined soft tissue mass at the region of the resected head of the pancreas which severely narrows the main portal vein suspicious for recurrent pancreatic cancer. 2. Obstructing stones in the mid and distal right ureter with mild right hydronephrosis. 3. Shrunken nodular cirrhotic liver. 4. Diffuse colonic wall thickening, severe in the proximal colon. Differential would include colitis either infectious, inflammatory or ischemic in etiology or edema secondary to liver disease or portal venous hypertension. 5. Small to moderate-sized bilateral pleural effusions, diffuse mild mesenteric and body wall edema and small amount of ascites. <Jolynn Gregory PA-C - Last Filed: 06/29/25 01:47> Discharge Plan Discharge Clinical Impression: Colitis, Portal vein obstruction, Pancreatic mass, History of Whipple procedure, Calculus of right ureter Diarrhea Qualifiers: Diarrhea type: unspecified type Qualified Code(s): R19.7 - Diarrhea, unspecified <WILSON Langston Last Filed: 06/29/25 01:47> Patient Disposition: Still a Patient <WILSON Langston Last Filed: 06/29/25 01:47> Condition: Stable <WILSON Langston Last Filed: 06/29/25 01:47> Patient Language: Kiswahili <Jolynn Gregory PA-C - Last Filed: 06/29/25 01:47> Prescriptions: No Action clonazepam 0.5 mg tablet 0.5 mg PO HS duloxetine 60 mg capsule,delayed release(DR/EC) 60 mg PO DAILY@0800 finasteride 5 mg tablet 5 mg PO DAILY@0800 tamsulosin 0.4 mg capsule 0.4 mg PO HS trazodone 150 mg tablet 150 mg PO HS <Jolynn Gregory PA-C - Last Filed: 06/29/25 01:47> Follow-up/Referrals: Anthony Gil MD [Primary Care Provider, [facility]] <Jolynn Gregory PA-C - Last Filed: 06/29/25 01:47> Time of Disposition: 09:13 <Jolynn Gregory PA-C - Last Filed: 06/29/25 01:47> 09:13 <Jeb Cope MD - Last Filed: 06/30/25 06:17> 09:13 <Solo Han MD - Last Filed: 06/29/25 16:36> 09:13 <Hector Arnold MD - Last Filed: 06/30/25 09:14> Sign Out Sign Out Data: Patient Sign Out occurred on 06/29/25 at 01:56. Patient's care was discussed, and care was transferred from Jolynn Gregory PA-C to Jeb Cope MD. <Jolynn Gregory PA-C - Last Filed: 06/29/25 01:47>
[2025-06-28 17:54] LABS: Hematocrit 41.8 % (42.0-52.0); Hemoglobin 13.5 g/dL (14.0-18.0); Immature Granulocyte Percent A 0.4 % (0-0.5); Lymphocytes Absolute Auto 1.76 K/mm3 (0.9-3.2); Mean Corpuscular HGB Conc 32.3 g/dl (32-36); Mean Corpuscular Hemoglobin 27.1 pg (26-34); Mean Corpuscular Volume 83.8 fl (80-100); Nucleated Red Blood Cells Absolute Auto 0.000 K/mm3 (0.0-0.012); Nucleated Red Blood Cells Perc 0.0 % (0.0-0.2); Platelet Count Result 196 k/mm3 (150-375); Red Blood Count 4.99 M/mm3 (4.6-6.20); White Blood Count 8.4 K/mm3 (4.5-10.0)
[2025-06-28 17:56] LABS: Add Urine Microscopic? YES; Appearance Urine Clear (Clear); Glucose Urine UA Negative (Negative); Leukocyte Esterase Ur Trace LEU/UL (Negative); Nitrate Urine Negative (Negative); Non Pathogenic Casts 0-2; Specific Grav Ur 1.025 (1.001-1.035)
[2025-06-28 18:47] LABS: Alanine Aminotransferase 22 U/L (6-50); Albumin Level 3.6 g/dL (3.5-5.1); Alkaline Phosphatase 132 U/L (38-126); Anion Gap 7 mmol/L (4-12); Aspartate Amino Transferase 47 U/L (17-59); Bilirubin,Total 1.5 mg/dL (0.2-1.3); Blood Urea Nitrogen 11 mg/dL (9-20); Calcium 8.7 mg/dL (8.4-10.2); Carbon Dioxide 26 mmol/L (22-30); Chloride 100 mmol/L (98-107); Estimated CRCL calculation 91 ml/min; Estimated Glomerular Filt Rate > 60; Glucose 85 mg/dL (65-110); Magnesium 1.8 mg/dL (1.6-2.3); Potassium 3.7 mmol/L (3.4-5.0); Sodium 133 mmol/L (137-145); Total Protein 7.7 g/dL (6.3-8.2)
[2025-06-28 19:05] LABS: Lipase 56 U/L (23-300)
--- NOTE | 2025-06-28 22:46 | PC.NURSE ---
Yao with [facility] states pt was accepted to [facility] for a Medical Bed with accepting MD being Dr Moreno
[2025-06-29] VITALS (24 sets, daily range): BP systolic 104–161; BP diastolic 63–91; PULSE 70–101; RESP 12–19; TEMP 36.8; O2SAT 96–100
[2025-06-29] MEDS: DULoxetine HCL 60 MG CAPSULE.DR PO (10:33)
[2025-06-29] MEDS: LACTATED RINGERS 1,000 ML 100 ML IV CONT ×2 (10:35→19:58)
--- NOTE | 2025-06-29 10:41 | PC.NURSE ---
This RN spoke with Johanna at the [facility] transfer center, gave update regarding pt status including recent set of vital signs and medication administration. Johanna states pt is still on wait list for a bed as there is not one available at this time.
--- NOTE | 2025-06-29 13:01 | PC.NURSE ---
Pt told another staff member that he was having a tough time mentally and that he was having suicidal thoughts. This RN entered pt room and did the [place] Scale reassessment, pt flagged as high risk. Suicide precautions initiated, special agent in charge and EDP made aware. Sitter at bedside, Pt belongings locked in safe designated area, non-essential equipment removed from pt room, and pt changed into green scrubs.
--- NOTE | 2025-06-29 19:45 | PC.NURSE ---
Pt placed in hospital bed, okayed by Johanna, adult education instructor, d/t pt being transfer boarder.
--- NOTE | 2025-06-29 21:15 | PC.NURSE ---
This RN spoke with [facility], no change in pt condition, vital signs provided. Per [facility], it will still be multiple days before he gets a bed.
[2025-06-30] VITALS (56 sets, daily range): BP systolic 96–145; BP diastolic 60–79; PULSE 71–92; RESP 9–20; TEMP 36.1–37.3; O2SAT 93–100; BMI 21.5
[2025-06-30] MEDS: LACTATED RINGERS 1,000 ML 100 ML IV CONT (04:33)
[2025-06-30 05:38] LABS: Anion Gap 6 mmol/L (4-12); Blood Urea Nitrogen 11 mg/dL (9-20); Calcium 8.2 mg/dL (8.4-10.2); Carbon Dioxide 26 mmol/L (22-30); Chloride 102 mmol/L (98-107); Estimated CRCL calculation 109 ml/min; Estimated Glomerular Filt Rate > 60; Glucose 65 mg/dL (65-110); Potassium 3.2 mmol/L (3.4-5.0); Sodium 134 mmol/L (137-145)
--- NOTE | 2025-06-30 07:36 | PC.NURSE ---
Assumed care of pt from Oksana EDWARD. Pt is sleeping quietly in room. No distress noted.
--- NOTE | 2025-06-30 08:00 | PC.NURSE ---
Called [facility] transfer center at this time. Talked to Lisa. Still waiting for bed.
[2025-06-30] MEDS: POTASSIUM CHLORIDE 20 MEQ PACKET (FOR LIQUID) 40 MEQ PO (08:14)
--- NOTE | 2025-06-30 09:48 | PC.NURSE ---
attempted to call report to margarita trotter
--- NOTE | 2025-06-30 10:23 | ADMGEN ---
This patient, Micah Hi, was admitted to Medical Room 342-01. Patient/family oriented to hospital policies and general routines including ID bracelet, bed and alarms, visiting hours, pain management, procedures, bathroom and other care routines, personal items, smoking policy, room service/diet, and visiting hours. Information on how to activate the Rapid Response Team has been discussed. Patient/Family are encouraged to report perceived risks to care and to ask questions if they do not understand what they are told or what they should do.
--- NOTE | 2025-06-30 12:32 | P.HP_ITS ---
H&P: HPI History of Present Illness Date/Time: 06/30/25 12:32 Chief Complaint: Diarrhea Narrative: 75-year-old male past history pancreatic cancer status post Whipple, presents to the hospital due to diarrhea. Patient complains of diarrhea for last 10 days he has been taking Pepto-Bismol without help. He has some left lower abdominal pain and generalized weakness. Lab work in the ED shows hemoglobin of 13.5 sodium of 134, potassium of 3.2, creatinine of 0.49, calcium to 8.2, UA shows negative nitrates, trace leukocyte esterase over 100 rbc's, 6-[address] abdomen pelvis show Postoperative change of prior Whipple procedure with proximal 24 cm ill-defined soft tissue mass at the region of the resected head of the pancreas which severely narrows the main portal vein suspicious for recurrent pancreatic cancer, Obstructing stones in the mid and distal right ureter with mild right hydronephrosis, Diffuse colonic wall thickening, severe in the proximal colon, and Small to moderate-sized bilateral pleural effusions. Stool sample pending Patient has been in the ED waiting on transfer to [place] for his new pancreatic mass but due to his kidney stone no causing pain he will be admitted and will be consulted for statin. Review of Systems Review of Systems: 12 systems were reviewed and are negativ e except for as per HPI. [facility] Past Medical History Medical History Pancreatic cancer Surgical History Surgical History H/O Whipple procedure Social History Social History Smoking status: Former smoker Tobacco type: cigarettes Alcohol intake: former Substance use: former Substance use type: former substance user, marijuana and crack/cocaine Lack of Transportation: No Lack of Food: Never True Current Housing: I Have Housing Concerned About Future Housing: No Difficulty Paying Gas/Electric Bills: No Difficulty Paying for Meds: No Currently Unemployed: No Education: High School Diploma/GED Difficulty w/ Childcare or Family Care: No Spiritual care concerns: No Meds Home Medications and Allergies Home Medications ?Medication ?Instructions ?Recorded ?Confirmed ?Type clonazepam 0.5 mg tablet 0.5 mg PO 06/29/25 History duloxetine 60 mg capsule,delayed 60 mg PO DAILY@0800 0 06/29/25 06/29/25 History release finasteride 5 mg tablet 5 mg PO DAILY@0800 06/29/25 06/29/25 History tamsulosin 0.4 mg capsule 0.4 mg PO 06/29/25 History trazodone 150 mg tablet 150 mg PO 06/29/25 History Allergies Allergy/AdvReac Type Severity Reaction Status Date / Time No Known Allergies Allergy Verified 06/22/25 10:47 Vital Signs Vital Signs - 24 hr 06/29/25 12:41 06/29/25 13:57 06/29/25 15:11 Pulse Rate 88 100 101 H Respiratory Rate 17 19 16 Blood Pressure 147/83 H 145/86 H 149/84 H Pulse Oximetry 99 97 97 Oxygen Delivery 06/29/25 16:20 06/29/25 16:58 06/29/25 18:32 Pulse Rate 101 H 98 98 Respiratory Rate 13 14 18 Blood Pressure 148/82 H 161/91 H 147/87 H Pulse Oximetry 97 96 97 Oxygen Delivery 06/29/25 19:00 06/29/25 20:15 06/29/25 20:53 Pulse Rate 95 96 91 Respiratory Rate 14 14 13 Blood Pressure 129/78 Pulse Oximetry 97 96 97 Oxygen Delivery 06/29/25 21:31 06/29/25 22:00 06/29/25 22:30 Pulse Rate 89 85 82 Respiratory Rate 13 12 15 Blood Pressure 115/71 106/64 106/63 Pulse Oximetry 97 98 99 Oxygen Delivery 06/29/25 23:00 06/29/25 23:30 06/30/25 00:00 Pulse Rate 82 82 80 Respiratory Rate 13 15 13 Blood Pressure 111/65 104/65 107/67 Pulse Oximetry 99 99 Oxygen Delivery 06/30/25 00:30 06/30/25 01:00 06/30/25 01:30 Pulse Rate 78 77 77 Respiratory Rate 12 16 18 Blood Pressure 110/66 98/65 L 135/79 Pulse Oximetry 100 Oxygen Delivery 06/30/25 02:01 06/30/25 02:30 06/30/25 02:31 Pulse Rate 76 73 74 Respiratory Rate 13 13 13 Blood Pressure 96/60 L 101/66 Pulse Oximetry 98 98 96 Oxygen Delivery 06/30/25 02:45 06/30/25 03:00 06/30/25 03:01 Pulse Rate 74 72 72 Respiratory Rate 16 12 Blood Pressure 102/66 Pulse Oximetry 99 99 98 Oxygen Delivery 06/30/25 03:15 06/30/25 03:30 06/30/25 03:47 Pulse Rate 71 71 88 Respiratory Rate 13 14 16 Blood Pressure Pulse Oximetry 96 99 98 Oxygen Delivery 06/30/25 04:00 06/30/25 04:06 06/30/25 04:08 Pulse Rate 80 80 Respiratory Rate 14 11 L Blood Pressure 117/66 133/74 Pulse Oximetry 99 100 Oxygen Delivery 06/30/25 04:15 06/30/25 04:30 06/30/25 04:45 Pulse Rate 78 74 73 Respiratory Rate 11 L 11 L 11 L Blood Pressure Pulse Oximetry 99 97 97 Oxygen Delivery 06/30/25 05:00 06/30/25 05:01 06/30/25 05:15 Pulse Rate 73 73 75 Respiratory Rate 15 9 L 10 L Blood Pressure 102/61 Pulse Oximetry 96 99 Oxygen Delivery 06/30/25 05:30 06/30/25 05:45 06/30/25 06:00 Pulse Rate 71 73 71 Respiratory Rate 12 12 Blood Pressure Pulse Oximetry 96 98 93 Oxygen Delivery 06/30/25 06:01 06/30/25 06:15 06/30/25 06:30 Pulse Rate 71 77 73 Respiratory Rate 13 12 17 Blood Pressure 107/74 Pulse Oximetry 94 99 98 Oxygen Delivery 06/30/25 06:45 06/30/25 07:00 06/30/25 07:01 Pulse Rate 72 73 Respiratory Rate 14 12 Blood Pressure 102/66 Pulse Oximetry 99 99 100 Oxygen Delivery 06/30/25 07:15 06/30/25 07:30 06/30/25 07:46 Pulse Rate 72 72 86 Respiratory Rate 14 Blood Pressure Pulse Oximetry 98 100 100 Oxygen Delivery 06/30/25 08:00 06/30/25 08:01 06/30/25 08:15 Pulse Rate 84 83 83 Respiratory Rate 11 L 10 L 14 Blood Pressure 127/69 Pulse Oximetry 100 100 99 Oxygen Delivery 06/30/25 08:30 06/30/25 08:45 06/30/25 09:00 Pulse Rate 83 80 79 Respiratory Rate 11 L 10 L 11 L Blood Pressure 123/75 Pulse Oximetry 100 99 100 Oxygen Delivery 06/30/25 09:01 06/30/25 09:15 06/30/25 09:30 Pulse Rate 82 80 78 Respiratory Rate 11 L 12 20 Blood Pressure Pulse Oximetry 100 100 100 Oxygen Delivery 06/30/25 10:23 Pulse Rate Respiratory Rate Blood Pressure Pulse Oximetry Oxygen Delivery Room Air Exam Narrative: General: well appearing, appears stated age. HEENT: normocephalic, atraumatic. Mucous membranes moist. EOMI, PERRLA, bilateral sclera anicteric, no conjunctival injection. Neck supple without JVD, lymphadenopathy, or bruit. Respiratory: clear to ascultation bilaterally. No rales/rhonic/wheezes. Cardiovascular: Regular rate and rhythm, normal S1-S2 upon ascultation. No murmurs, rubs, or clicks. PMI is nondisplaced, capillary refill less than 3 second. Abdomen: Soft, round, no pulsatile masses, nondistended and nontender. No rebound, no guarding. No CVA tenderness, no hepatosplenomegaly. Bowel sounds present to all four quadrants. No high pitch or tinkling sounds, resonant to percussion. Extremities: No cyanosis, clubbing, or edema present. Pulses are palpable 2/2. Active ROM to all four extremities. Neuro: Alert and orientated x 4. PERRLA. Cranial nerves 2-12 intact without focal deficit. Skin: Warm, dry, and intact, without rash, erythema, or lesion. Psych: pleasant, cooperative, normal speech, normal affect, no hallucinations, no dysarthia H&P: Results Labs Labs: [facility] 06/30/25 05:18 Sodium 134 L Potassium 3.2 L Chloride 102 Carbon Dioxide 26 BUN 11 Creatinine 0.49 L Glucose 65 Calcium 8.2 L Assessment and Plan Assessment and plan (1) Pancreatic mass: Code(s): K86.89 - Other specified diseases of pancreas Status: Acute Assessment and Plan: Status post Whipple with new pancreatic mass seen on CT Transfer to [place] when bed is available (2) Calculus of right ureter: Code(s): N20.1 - Calculus of ureter Status: Acute Assessment and Plan: consulted Patient had a right stent placed today by Urology Kidney stone will be dealt with at a later date UA pending (3) BPH (benign prostatic hyperplasia): Code(s): N40.0 - Benign prostatic hyperplasia without lower urinary tract symptoms Status: Acute Assessment and Plan: Restart Flomax and Proscar (4) UTI (urinary tract infection): Code(s): N39.0 - Urinary tract infection, site not specified Status: Acute Assessment and Plan: IV Rocephin IVF Culture and sensitivity pending (5) Colitis: Code(s): K52.9 - Noninfective gastroenteritis and colitis, unspecified Status: Acute Assessment and Plan: 10 days of diarrhea Stool sample pending (6) Anxiety: Code(s): F41.9 - Anxiety disorder, unspecified Status: Acute Assessment and Plan: Continue Klonopin and Cymbalta Quality VTE Prophylaxis VTE prophylaxis: mechanical ordered Hospitalist MIPS Advance Care Plan I have confirmed that the patient's Advanced Care Plan is present, code status is documented, or surrogate decision maker is listed in patient medical record.: Yes Medication Reconciliation I have utilized all available resources to obtain, update and review the patients current medications (includes all prescriptions, OTC, herbals, cannabis, and nutritional supplements).: Yes
--- NOTE | 2025-06-30 13:23 | WPDURCON ---
Assessment and Plan Assessment and plan (1) Calculus of right ureter: Code(s): N20.1 - Calculus of ureter Status: Acute Assessment and Plan: Plan for cystoscopy, right retrograde, right ureteroscopy with possible laser, stone extraction, stent placement. He is aware of that we are unable to get the instruments into the right ureter that he would simply have a stent placed today and would deal with the stones at a later point time Urology Consult Note HPI Date Seen: 06/30/25 Time Seen: 13:23 Requesting Physician: Deven Miller MD Primary Care Provider: Anthony Gil MD Consult Narrative Reason for consult: Right ureteral calculi 6 x 4 mm as well as 7 mm stone distally Narrative: Micah Hi is a 75 year old male who is status post Whipple procedure 1 year ago. He presented to the emergency room with diarrhea. During his workup he was found to have 2 stones in the right ureter. 6 x 4 mm proximal and 7 mm distal stone. Will proceed with cystoscopy, right retrograde, possible ureteroscopy with laser, stone extraction, stent placement today. Review of Systems Review of Systems: All systems reviewed & are unremarkable except as noted in HPI and below PMFSH Past Medical History Medical History Pancreatic cancer Surgical History Surgical History H/O Whipple procedure Social History Social History Smoking status: Former smoker Tobacco type: cigarettes Alcohol intake: former Substance use: former Substance use type: former substance user, marijuana and crack/cocaine Lack of Transportation: No Lack of Food: Never True Current Housing: I Have Housing Concerned About Future Housing: No Difficulty Paying Gas/Electric Bills: No Difficulty Paying for Meds: No Currently Unemployed: No Education: High School Diploma/GED Difficulty w/ Childcare or Family Care: No Spiritual care concerns: No Meds Home Medications and Allergies Home Medications ?Medication ?Instructions ?Recorded ?Confirmed ?Type clonazepam 0.5 mg tablet 0.5 mg PO HS 06/29/25 06/29/25 History duloxetine 60 mg capsule,delayed 60 mg PO DAILY@0800 09/01/25 09/01/25 History release finasteride 5 mg tablet 5 mg PO DAILY@79906/29/25 06/29/25 History tamsulosin 0.4 mg capsule 0.4 mg PO 06/29/25 06/29/25 History trazodone 150 mg tablet 150 mg PO 06/29/25 06/29/25 History Allergies Allergy/AdvReac Type Severity Reaction Status Date / Time No Known Allergies Allergy Verified 06/22/25 10:47 Vital Signs Vital Signs - 24 hr 06/29/25 13:57 06/29/25 15:11 06/29/25 16:20 Pulse Rate 100 101 H 101 H Respiratory Rate 19 16 13 Blood Pressure 145/86 H 149/84 H 148/82 H Pulse Oximetry 97 97 97 Oxygen Delivery 06/29/25 16:58 06/29/25 18:32 06/29/25 19:00 Pulse Rate 98 98 95 Respiratory Rate 14 18 14 Blood Pressure 161/91 H 147/87 H Pulse Oximetry 96 97 97 Oxygen Delivery 06/29/25 20:15 06/29/25 20:53 06/29/25 21:31 Pulse Rate 96 91 89 Respiratory Rate 14 13 13 Blood Pressure 129/78 115/71 Pulse Oximetry 96 97 97 Oxygen Delivery 06/29/25 22:00 06/29/25 22:30 06/29/25 23:00 Pulse Rate 85 82 82 Respiratory Rate 12 15 13 Blood Pressure 106/64 106/63 111/65 Pulse Oximetry 98 99 99 Oxygen Delivery 06/29/25 23:30 06/30/25 00:00 06/30/25 00:30 Pulse Rate 82 80 78 Respiratory Rate 15 13 12 Blood Pressure 104/65 107/67 110/66 Pulse Oximetry 99 Oxygen Delivery 06/30/25 01:00 06/30/25 01:30 06/30/25 02:01 Pulse Rate 77 77 76 Respiratory Rate 16 18 13 Blood Pressure 98/65 L 135/79 96/60 L Pulse Oximetry 100 98 Oxygen Delivery 06/30/25 02:30 06/30/25 02:31 06/30/25 02:45 Pulse Rate 73 74 74 Respiratory Rate 13 13 Blood Pressure 101/66 Pulse Oximetry 98 96 99 Oxygen Delivery 06/30/25 03:00 06/30/25 03:01 06/30/25 03:15 Pulse Rate 72 72 71 Respiratory Rate 16 12 13 Blood Pressure 102/66 Pulse Oximetry 99 98 96 Oxygen Delivery 06/30/25 03:30 06/30/25 03:47 06/30/25 04:00 Pulse Rate 71 88 Respiratory Rate 14 16 Blood Pressure 117/66 Pulse Oximetry 99 98 Oxygen Delivery 06/30/25 04:06 06/30/25 04:08 06/30/25 04:15 Pulse Rate 80 80 78 Respiratory Rate 14 11 L 11 L Blood Pressure 133/74 Pulse Oximetry 99 100 99 Oxygen Delivery 06/30/25 04:30 06/30/25 04:45 06/30/25 05:00 Pulse Rate 74 73 73 Respiratory Rate 11 L 11 L 15 Blood Pressure Pulse Oximetry 97 97 96 Oxygen Delivery 06/30/25 05:01 06/30/25 05:15 06/30/25 05:30 Pulse Rate 73 75 71 Respiratory Rate 9 L 10 L 12 Blood Pressure 102/61 Pulse Oximetry 99 96 Oxygen Delivery 06/30/25 05:45 06/30/25 06:00 06/30/25 06:01 Pulse Rate 73 71 71 Respiratory Rate 12 13 Blood Pressure 107/74 Pulse Oximetry 98 93 94 Oxygen Delivery 06/30/25 06:15 06/30/25 06:30 06/30/25 06:45 Pulse Rate 77 73 Respiratory Rate 12 17 Blood Pressure Pulse Oximetry 99 98 99 Oxygen Delivery 06/30/25 07:00 06/30/25 07:01 06/30/25 07:15 Pulse Rate 72 73 72 Respiratory Rate 14 12 14 Blood Pressure 102/66 Pulse Oximetry 99 100 98 Oxygen Delivery 06/30/25 07:30 06/30/25 07:46 06/30/25 08:00 Pulse Rate 72 86 84 Respiratory Rate 11 L Blood Pressure 127/69 Pulse Oximetry 100 100 100 Oxygen Delivery 06/30/25 08:01 06/30/25 08:15 06/30/25 08:30 Pulse Rate 83 83 83 Respiratory Rate 10 L 14 11 L Blood Pressure Pulse Oximetry 100 99 100 Oxygen Delivery 06/30/25 08:45 06/30/25 09:00 06/30/25 09:01 Pulse Rate 80 79 82 Respiratory Rate 10 L 11 L 11 L Blood Pressure 123/75 Pulse Oximetry 99 100 100 Oxygen Delivery 06/30/25 09:15 06/30/25 09:30 06/30/25 10:23 Pulse Rate 80 78 Respiratory Rate 12 20 Blood Pressure Pulse Oximetry 100 100 Oxygen Delivery Room Air Exam Const: General: cooperative and no acute distress Resp: Effort & Inspection: normal respiratory effort Cardio: Rate: regular rate Rhythm: regular rhythm Results Labs 06/28/25 17:36 06/30/25 05:18 Labs: BMP 06/30/25 05:18 Sodium 134 L Potassium 3.2 L Chloride 102 Carbon Dioxide 26 BUN 11 Creatinine 0.49 L Glucose 65 Calcium 8.2 L
--- NOTE | 2025-06-30 14:16 | P.PNAN_ITS ---
Anes - Initial Pre Proc Eval Procedure: Operation Date: 06/30/25 14:30 Proposed Procedures p Cystoscopy, Right Ureteroscopy, Possible Right Retrograde Pyelogram, Possible Right Stone Extraction, Possible Right Stent Placement, Possible Holmium Laser - Morales Prater MD Date/Time: 06/30/25 14:16 Surgeon: Deven Miller MD Pre Op Diagnosis: right utereral stone,pancreatic mass Patient Data Age: 75 Gender: M Height: 1.83 m Weight: 72 kg Last Vital Signs Temp 98.3 F 06/29/25 10:31 Pulse 78 06/30/25 09:30 Resp 20 06/30/25 09:30 BP 123/75 06/30/25 09:00 Pulse Ox 100 06/30/25 09:30 O2 Del Method Room Air 06/30/25 10:23 Allergies Allergy/AdvReac Type Severity Reaction Status Date / Time No Known Allergies Allergy Verified 06/22/25 10:47 Home Medications ?Medication ?Instructions ?Recorded ?Confirmed ?Type clonazepam 0.5 mg tablet 0.5 mg PO HS 06/29/25 History duloxetine 60 mg capsule,delayed 60 mg PO DAILY@0800 0 06/29/25 06/29/25 History release finasteride 5 mg tablet 5 mg PO DAILY@0800 06/29/25 06/29/25 History tamsulosin 0.4 mg capsule 0.4 mg PO HS 06/29/25 History trazodone 150 mg tablet 150 mg PO HS 06/29/25 History Laboratory Tests 06/30/25 05:18 Sodium 134 L mmol/L (137-145) Potassium 3.2 L mmol/L (3.4-5.0) Chloride 102 mmol/L (98-107) Carbon Dioxide 26 mmol/L (22-30) Anion Gap 6 mmol/L (4-12) BUN 11 mg/dL (9-20) Creatinine 0.49 L mg/dL (0.7-1.3) Estim Creat Clear Calc 109 ml/min Estimated GFR > 60 (59 - ) Glucose 65 mg/dL (65-110) Calcium 8.2 L mg/dL (8.4-10.2) Patient hx anesthesia problems: none Family hx anesthesia problems: none Results Review: All pre-operative results and documents have been reviewed as part of the pre- operative evaluation. FOR[facility], LAT[facility] Past Medical History Medical History Pancreatic cancer Surgical History Surgical History H/O Whipple procedure Social History Social History Smoking status: Former smoker Tobacco type: cigarettes Alcohol intake: former Substance use: former Substance use type: former substance user, marijuana and crack/cocaine Lack of Transportation: No Lack of Food: Never True Current Housing: I Have Housing Concerned About Future Housing: No Difficulty Paying Gas/Electric Bills: No Difficulty Paying for Meds: No Currently Unemployed: No Education: High School Diploma/GED Difficulty w/ Childcare or Family Care: No Spiritual care concerns: No Anes - Eval Final PreProcedure Day of Procedure 06/30/25 14:16 Patient weight: normal Heart: regular rate and rhythm Lungs: clear to auscultation Airway: Mallampati scale class II (poor dentition) Neurological: alert and oriented Last oral intake: >/= 8 hours ASA classification: III Emergent: no Anesthetic plan: proceed Anesthesia type and monitoring: general LMA and standard monitoring Results Review: All pre-operative results and documents have been reviewed as part of the pre- operative evaluation. Informed Consent: The patient's anesthetic plan and its attendant risks and benefits were discussed with the patient/family/POA. Questions were solicited and answers provided to the satisfaction of the patient/family/POA.
--- NOTE | 2025-06-30 14:18 | ECG_ITS ---
Test Date: 2025-06-30 14:31:14 Measurements Intervals [place] Rate: 77 P: 34 ME: 142 QRS: -47 QRSD: 113 T: 45 QT: 409 QTc: 464 Interpretive Statements SINUS RHYTHM INDETERMINATE AXIS LOW QRS VOLTAGE IN EXTREMITY LEADS [QRS DEFLECTION < 0.5 mV IN LIMB LEADS] MODERATE INTRAVENTRICULAR CONDUCTION DELAY [110+ ms QRS DURATION] ABNORMAL ECG No previous ECG available for comparison Electronically Signed On 06-30-2025 16:08:38 CDT by Phi Ng M.D.
[2025-06-30] MEDS: LACTATED RINGERS 1,000 ML 30 ML IV CONT (14:35)
[2025-06-30] MEDS: ceFAZolin 2 GM in SODIUM CHLORIDE 0.9% IV 50 ML 100 ML IVPB (14:38)
--- NOTE | 2025-06-30 15:20 | S_PTH ---
PATIENT: Micah Hi LOC: [id number] U#:[id number] AGE/SX: 75/M ROOM: 342 RE06/30/[address]: Lavinia Larsen MD : 1950 BED: 01 DIS: 07/10/2025 SPEC #: [id number] RECD: 07/01/25 10:00 STATUS: SHANNA OROPEZA #: [id number] KATIANA: 06/30/25 15:[address]: Josi,Morales Carrera DEPT: [facility] Surgical RECD BY: Carolina Lei ENTERED: 07/01/25 10:00 SP TYPE: Surgical OTHR DR: MD Anthony Slater MD Tissues: A - Stone Procedures: Gross Exam Level 1 Crystalline Analysis
[2025-06-30] MEDS: LIDOCAINE 2% GEL UROJET 10 ML PKG MUCOUS MEM (15:24)
--- NOTE | 2025-06-30 15:25 | W.PM.PROC2 ---
Procedure Note - Detailed Date of Procedure 06/30/25 Pre-op Diagnosis right utereral stone,pancreatic mass Post-op Diagnosis Same Procedure Performed Cystoscopy, right retrograde, right ureteroscopy with laser, stone extraction, right ureteral stent placement 4.8 Cypriot contour Surgeon Morales Prater MD Anesthesia General Description of Procedure Patient is taken the operative suite and correctly identified. Once anesthesia was obtained was placed in dorsal lithotomy position and prepped and draped usual sterile fashion. Twenty-two Cypriot scope was inserted the bladder. He has some mild lateral lobe hypertrophy and a slightly elevated median bar. There were no tumors noted. The right ureteral orifice was cannulated with a wire. I dilated with an 8/10 dilator. Rigid ureteral scope was inserted and the distal stone measuring approximately 7 mm was encountered. Using a 200 micron fiber I lasered the stone retrieved some larger pieces. The scope was then advanced up to the proximal ureter where a 2nd stone was noted measuring at least 6 mm. This also was lasered. Fragments were retrieved. Pyelogram was then performed to confirm placement of the stent. 4.8 Cypriot contour stent was placed with the proximal end coiled in the renal pelvis and the distal in the bladder. Bladder was drained. 2% viscous lidocaine was inserted into the urethra patient is taken recovery stable condition. Plan is to remove the stent in about 1 to 2 weeks. This completes dictation. Please send a copy of op note to my office Estimated Blood Loss 0 Urine Output 100 Drains Yes Packing No Pathology Yes Complications No immediate complications Condition Stable Disposition PACU
[2025-06-30] MEDS: POTASSIUM CHLORIDE INJ 40 MEQ in SODIUM CHLORIDE 0.9% IV 500 ML 130 MEQ IVPB (17:10)
[2025-06-30] MEDS: SODIUM CHLORIDE 0.9% IV 1,000 ML 125 ML IV CONT (17:10)
[2025-06-30] MEDS: FINASTERIDE 5 MG TABLET PO (17:29)
[2025-06-30] MEDS: DULoxetine HCL 60 MG CAPSULE.DR PO (17:29)
[2025-06-30 17:40] LABS: Add Urine Microscopic? YES; Appearance Urine Turbid (Clear); Glucose Urine UA Negative (Negative); Leukocyte Esterase Ur 2+ LEU/UL (Negative); Need Manual Microscopic Reviewed; Nitrate Urine Positive (Negative); Non Pathogenic Casts 0-2; Specific Grav Ur 1.019 (1.001-1.035)
[2025-06-30 18:25] LABS: Hematocrit 41.8 % (42.0-52.0); Hemoglobin 13.6 g/dL (14.0-18.0); Immature Granulocyte Percent A 0.3 % (0-0.5); Lymphocytes Absolute Auto 1.27 K/mm3 (0.9-3.2); Mean Corpuscular HGB Conc 32.5 g/dl (32-36); Mean Corpuscular Hemoglobin 27.1 pg (26-34); Mean Corpuscular Volume 83.4 fl (80-100); Nucleated Red Blood Cells Absolute Auto 0.000 K/mm3 (0.0-0.012); Nucleated Red Blood Cells Perc 0.0 % (0.0-0.2); Platelet Count Result 166 k/mm3 (150-375); Red Blood Count 5.01 M/mm3 (4.6-6.20); White Blood Count 6.6 K/mm3 (4.5-10.0)
[2025-06-30] MEDS: HYDROcodone/acetaminophen (*CRX) 5-325 MG TABLET 1 TAB PO (18:43)
[2025-06-30] MEDS: clonazePAM (*CRX) 0.5 MG TABLET PO (21:28)
[2025-06-30] MEDS: TAMSULOSIN HCL 0.4 MG CAPSULE PO (21:28)
[2025-06-30] MEDS: MORPHINE SULFATE (*CRX) 2 MG/ML INJ IV PUSH (21:29)
[2025-06-30] MEDS: cefTRIAXone 1 GM in SODIUM CHLORIDE 0.9% IV 50 ML 100 ML IVPB (21:29)
[2025-07-01] MEDS: SODIUM CHLORIDE 0.9% IV 1,000 ML 125 ML IV CONT ×3 (04:43→20:28)
[2025-07-01 05:12] VITALS: BP 111/64; PULSE 77; RESP 12; TEMP 36; O2SAT 98
[2025-07-01 05:53] LABS: Hematocrit 36.3 % (42.0-52.0); Hemoglobin 11.4 g/dL (14.0-18.0); Immature Granulocyte Percent A 0.4 % (0-0.5); Lymphocytes Absolute Auto 1.11 K/mm3 (0.9-3.2); Mean Corpuscular HGB Conc 31.4 g/dl (32-36); Mean Corpuscular Hemoglobin 27.2 pg (26-34); Mean Corpuscular Volume 86.6 fl (80-100); Nucleated Red Blood Cells Absolute Auto 0.000 K/mm3 (0.0-0.012); Nucleated Red Blood Cells Perc 0.0 % (0.0-0.2); Platelet Count Result 130 k/mm3 (150-375); Red Blood Count 4.19 M/mm3 (4.6-6.20); White Blood Count 5.2 K/mm3 (4.5-10.0)
[2025-07-01] MEDS: FINASTERIDE 5 MG TABLET PO (09:10)
[2025-07-01] MEDS: DULoxetine HCL 60 MG CAPSULE.DR PO (09:10)
[2025-07-01 10:08] LABS: Anion Gap 5 mmol/L (4-12); Blood Urea Nitrogen 11 mg/dL (9-20); Calcium 8.2 mg/dL (8.4-10.2); Carbon Dioxide 25 mmol/L (22-30); Chloride 105 mmol/L (98-107); Estimated CRCL calculation 98 ml/min; Estimated Glomerular Filt Rate > 60; Glucose 64 mg/dL (65-110); Potassium 3.8 mmol/L (3.4-5.0); Sodium 135 mmol/L (137-145)
[2025-07-01 11:09] VITALS: BMI 21.5
[2025-07-01 14:00] VITALS: BP 110/62; PULSE 80; RESP 18; TEMP 36.3; O2SAT 99
--- NOTE | 2025-07-01 14:12 | P.CDI_ITS ---
CDI Query Clarification Request BMI: 21.5 Nutritional Diagnostic Statement: Please refer to the comprehensive nutrition assessment for further information. If you agree with diagnosis of Severe Protein Calorie Malnutrition as related to inadequate protein energy intake in setting of chronic disease (cancer) as evidenced by minimal oral intake for > 1-2 months; weight loss noted of 8 ibs in 1 week; moderate subcutaneous fat loss (orbital fat pads) and moderate muscle wasting (temporalis). Please specify severity if known: * Mild * Moderate * Severe * Other/Unknown <Susie Webb RN - Last Filed: 07/01/25 14:13> Clarified Diagnosis Clarified Diagnosis: Severe protein calorie malnutrition <Clover Og MD - Last Filed: 07/01/25 14:42>
--- NOTE | 2025-07-01 14:42 | P.PNIM_ITS ---
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 Patient complains of diarrhea for last 10 days he has been taking Pepto-Bismol without help. He has some left lower abdominal pain and generalized weakness. Lab work in the ED shows hemoglobin of 13.5 sodium of 134, potassium of 3.2, creatinine of 0.49, calcium to 8.2, UA shows negative nitrates, trace leukocyte esterase over 100 rbc's, 6-[address] abdomen pelvis show Postoperative change of prior Whipple procedure with proximal 24 cm ill-defined soft tissue mass at the region of the resected head of the pancreas which severely narrows the main portal vein suspicious for recurrent pancreatic cancer, Obstructing stones in the mid and distal right ureter with mild right hydronephrosis, Diffuse colonic wall thickening, severe in the proximal colon, and Small to moderate-sized bilateral pleural effusions. (1) Pancreatic mass: Status post Whipple with new pancreatic mass seen on CT Transfer to [place] when bed is available. Has been accepted (2) Calculus of right ureter: Appreciate urology help Patient had a right stent placed by Urology Kidney stone will be dealt with at a later date (3) BPH (benign prostatic hyperplasia): Continue with Flomax and Proscar (4) UTI (urinary tract infection): Continue with ceftriaxone Follow-up culture and sensitivity (5) Colitis: Continue with IV fluids Follow up stool culture (6) Anxiety: Continue Klonopin and Cymbalta 7. DVT prophylaxis: SCDs 8. Code status: Full 9. Disposition: Await transfer to [place] Time Spent With Patient Time: 39 mins Subjective Date/time seen: 07/01/25 14:42 Interval history: No acute events overnight, await transfer to [place] Review of Systems Review of Systems: All systems reviewed & are unremarkable except as noted in HPI and below Exam Narrative: General: well appearing, appears stated age. HEENT: normocephalic, atraumatic. Mucous membranes moist. EOMI, PERRLA, bilateral sclera anicteric, no conjunctival injection. Neck supple without JVD, lymphadenopathy, or bruit. Respiratory: clear to ascultation bilaterally. No rales/rhonic/wheezes. Cardiovascular: Regular rate and rhythm, normal S1-S2 upon ascultation. No murmurs, rubs, or clicks. PMI is nondisplaced, capillary refill less than 3 second. Abdomen: Soft, round, no pulsatile masses, nondistended and nontender. No rebound, no guarding. No CVA tenderness, no hepatosplenomegaly. Bowel sounds present to all four quadrants. No high pitch or tinkling sounds, resonant to percussion. Extremities: No cyanosis, clubbing, or edema present. Pulses are palpable 2/2. Active ROM to all four extremities. Neuro: Alert and orientated x 4. PERRLA. Cranial nerves 2-12 intact without focal deficit. Skin: Warm, dry, and intact, without rash, erythema, or lesion. Psych: pleasant, cooperative, normal speech, normal affect, no hallucinations, no dysarthia Objective Data Vital Signs Vital Signs: Vital Signs - 24 hr 06/30/25 15:30 06/30/25 15:45 06/30/25 16:00 Temperature 98.5 F Pulse Rate 74 74 75 Respiratory Rate 16 12 12 Blood Pressure 126/63 122/65 123/70 Pulse Oximetry 100 100 100 Oxygen Delivery Simple Face Mask Simple Face Mask Simple Face Mask Oxygen Flow Rate 6 6 6 06/30/25 16:12 06/30/25 16:15 06/30/25 16:30 Temperature Pulse Rate 79 80 Respiratory Rate 12 12 Blood Pressure 132/78 129/79 Pulse Oximetry 97 98 Oxygen Delivery Room Air Room Air Room Air Oxygen Flow Rate 06/30/25 16:45 06/30/25 17:00 06/30/25 17:15 Temperature 99.2 F 97.6 F 98.0 F Pulse Rate 80 81 81 Respiratory Rate 12 14 14 Blood Pressure 134/78 142/78 H 126/72 Pulse Oximetry 98 97 97 Oxygen Delivery Room Air Oxygen Flow Rate 06/30/25 17:45 06/30/25 18:41 06/30/25 20:00 Temperature 97.7 F 97.8 F Pulse Rate 83 92 Respiratory Rate 16 14 Blood Pressure 145/78 H 121/70 Pulse Oximetry 96 98 Oxygen Delivery Room Air Oxygen Flow Rate 06/30/25 20:00 06/30/25 20:02 07/01/25 05:12 Temperature 97.0 F L 96.8 F L Pulse Rate 81 77 Respiratory Rate 14 12 Blood Pressure 125/72 111/64 Pulse Oximetry 97 97 98 Oxygen Delivery Room Air Oxygen Flow Rate 07/01/25 08:35 Temperature Pulse Rate Respiratory Rate Blood Pressure Pulse Oximetry Oxygen Delivery Room Air Oxygen Flow Rate Intake/Output Intake/Output: Intake & Output 06/28/25 06/29/25 06/30/25 07/01/25 23:59 23:59 23:59 23:59 Intake Total 1000 1372.5 2480 Output Total 400 700 Balance 1000 972.5 1780 Meds/Results Medications: Active Medications Generic Name Dose Route Start Last Admin Trade Name Freq PRN Reason Stop Dose Admin Acetaminophen 650 mg 06/30/25 14:11 Acetaminophen 325 Mg Tablet PO Q4H PRN Mild Pain (1-3) or Fever Hydrocodone Bitart/Acetaminophen 1 tab 06/30/25 14:11 06/30/25 18:43 Hydrocodone/Acetaminophen (*Crx) 5-325 Mg Tablet PO 1 tab Q4H PRN Administration Moderate Pain (4-6) Clonazepam 0.5 mg 06/30/25 21:00 06/30/25 21:28 Clonazepam (*Crx) 0.5 Mg Tablet PO 0.5 mg HS KEYUR Administration Duloxetine HCl 60 mg 06/30/25 14:00 07/01/25 09:10 Duloxetine Hcl 60 Mg Capsule.Dr PO 60 mg DAILY@0800 KEYUR Administration Finasteride 5 mg 06/30/25 14:00 07/01/25 09:10 Finasteride 5 Mg Tablet PO 5 mg DAILY@0800 KEYUR Administration Sodium Chloride 1,000 mls @ 125 mls/hr 06/30/25 09:20 07/01/25 12:44 Normal Saline Iv IV CONT 125 mls/hr .Q8H KEYUR Administration Ceftriaxone Sodium 1 gm/ 50 mls @ 100 mls/hr 06/30/25 18:00 06/30/25 21:29 Sodium Chloride IVPB 100 mls/hr Q24H KEYUR Administration Morphine Sulfate 2 mg 06/30/25 09:16 06/30/25 21:29 Morphine Sulfate (*Crx) 2 Mg/Ml Inj IV PUSH 2 mg Q2H PRN Administration Pain Rated 7-10 Ondansetron HCl 4 mg 06/29/25 09:51 Ondansetron Inj 4 Mg/2 Ml Vial IV PUSH Q4H PRN Nausea Tamsulosin HCl 0.4 mg 06/30/25 21:00 06/30/25 21:28 Tamsulosin Hcl 0.4 Mg Capsule PO 0.4 mg HS KEYUR Administration Trazodone HCl 150 mg 06/29/25 18:50 06/29/25 19:48 Trazodone Hcl 50 Mg Tablet PO 150 mg HS PRN Administration Insomnia Trazodone HCl 150 mg 06/30/25 21:00 06/30/25 21:28 Trazodone Hcl 50 Mg Tablet PO 150 mg HS KEYUR Administration Radiology Results: ITS Impressions Abdomen/Pelvis CT 06/28/25 19:37 IMPRESSION: 1. Postoperative change of prior Whipple procedure with proximal 24 cm ill- defined soft tissue mass at the region of the resected head of the pancreas which severely narrows the main portal vein suspicious for recurrent pancreatic cancer. 2. Obstructing stones in the mid and distal right ureter with mild right hydronephrosis. 3. Shrunken nodular cirrhotic liver. 4. Diffuse colonic wall thickening, severe in the proximal colon. Differential would include colitis either infectious, inflammatory or ischemic in etiology or edema secondary to liver disease or portal venous hypertension. 5. Small to moderate-sized bilateral pleural effusions, diffuse mild mesenteric and body wall edema and small amount of ascites. Abdomen X-Ray 06/30/25 09:13 IMPRESSION: 1. Unchanged stones in the mid and distal right ureter. 2. Persistent pneumobilia. Retrograde Pyelogram 06/30/25 16:09 IMPRESSION: 1. Right internal ureteral stent placement. Please refer to real-time procedural findings for details. Labs Labs: Laboratory Results - last 24 hr 06/30/25 06/30/25 06/30/25 17:09 18:16 19:47 WBC 6.6 RBC 5.01 Hgb 13.6 L Hct 41.8 L MCV 83.4 MCH 27.1 MCHC 32.5 RDW 16.4 H Plt Count 166 MPV 9.5 Immature Gran % (Auto) 0.3 Neut % (Auto) 69.6 Lymph % (Auto) 19.2 Pepin % (Auto) 8.6 H Eos % (Auto) 1.5 Baso % (Auto) 0.8 Lymph # (Auto) 1.27 Pepin # (Auto) 0.6 Eos # (Auto) 0.1 Baso # (Auto) 0.1 Abs Immat Gran (auto) 0.02 Absolute Neuts (auto) 4.6 Absolute Nucleated RBC 0.000 Nucleated RBC % 0.0 Sodium Potassium Chloride Carbon Dioxide Anion Gap BUN Creatinine Estim Creat Clear Calc Estimated GFR Glucose POC Capillary Glucose 98 Calcium Urine Color Red H Urine Appearance Turbid H Urine pH 5.5 Ur Specific [place] 1.019 Urine Protein 3+ H Urine Glucose (UA) Negative Urine Ketones 2+ H Ur Blood (Man) 3+ H Urine Nitrate Positive H Urine Bilirubin 2+ H Urine Urobilinogen 1.0 Add Ur Microanalysis Reviewed Leukocyte Esterase Rfl 2+ H Urine RBC >100 H Urine WBC 11-20 H Ur Squamous Epith Cells None seen Urine Bacteria None seen Urine Casts 0-2 07/01/25 05:14 WBC 5.2 RBC 4.19 L Hgb 11.4 L Hct 36.3 L MCV 86.6 MCH 27.2 MCHC 31.4 L RDW 16.3 H Plt Count 130 L MPV 10.1 Immature Gran % (Auto) 0.4 Neut % (Auto) 60.8 Lymph % (Auto) 21.2 Pepin % (Auto) 13.0 H Eos % (Auto) 3.8 Baso % (Auto) 0.8 Lymph # (Auto) 1.11 Pepin # (Auto) 0.7 H Eos # (Auto) 0.2 Baso # (Auto) 0.0 Abs Immat Gran (auto) 0.02 Absolute Neuts (auto) 3.2 Absolute Nucleated RBC 0.000 Nucleated RBC % 0.0 Sodium 135 L Potassium 3.8 Chloride 105 Carbon Dioxide 25 Anion Gap 5 BUN 11 Creatinine 0.55 L Estim Creat Clear Calc 98 Estimated GFR > 60 Glucose 64 L POC Capillary Glucose Calcium 8.2 L Urine Color Urine Appearance Urine pH Ur Specific [place] Urine Protein Urine Glucose (UA) Urine Ketones Ur Blood (Man) Urine Nitrate Urine Bilirubin Urine Urobilinogen Add Ur Microanalysis Leukocyte Esterase Rfl Urine RBC Urine WBC Ur Squamous Epith Cells Urine Bacteria Urine Casts Quality VTE Prophylaxis VTE prophylaxis: mechanical ordered
--- NOTE | 2025-07-01 16:26 | P.PNUR_ITS ---
Progress Note: A&P Assessment and Plan (1) Calculus of right ureter: Code(s): N20.1 - Calculus of ureter Status: Acute Assessment and Plan: Patient is POD 1 Cystoscopy, right retrograde, right ureteroscopy with laser, stone extraction, right ureteral stent placement 4.[address] [facility] [place] contour [address] Dr. Prater -wbc is wnl -cr is 0.55 -patient pain is controlled and he is feeling well. -urine culture pending. culture driven antibiotic therapy per primary service. -follow up with urology in 1-2 weeks for stent removal. Subjective Subjective Date/Time Seen: 07/01/25 16:26 Interval history: No acute events overnight. patient reports he is feeling good. Review of Systems Review of Systems: All systems reviewed & are unremarkable except as noted in HPI and below Exam Const: General: cooperative and no acute distress Resp: Effort & Inspection: normal respiratory effort Cardio: Rate: regular rate Rhythm: regular rhythm Objective Data Vital Signs Vital Signs: Vital Signs - 24 hr 06/30/25 16:30 06/30/25 16:45 06/30/25 17:00 Temperature 99.2 F 97.6 F Pulse Rate 80 80 81 Respiratory Rate 12 12 14 Blood Pressure 129/79 134/78 142/78 H Pulse Oximetry 98 98 97 Oxygen Delivery Room Air Room Air 06/30/25 17:15 06/30/25 17:45 06/30/25 18:41 Temperature 98.0 F 97.7 F 97.8 F Pulse Rate 81 83 92 Respiratory Rate 14 16 14 Blood Pressure 126/72 145/78 H 121/70 Pulse Oximetry 97 96 98 Oxygen Delivery 06/30/25 20:00 06/30/25 20:00 06/30/25 20:02 Temperature 97.0 F L Pulse Rate 81 Respiratory Rate 14 Blood Pressure 125/72 Pulse Oximetry 97 97 Oxygen Delivery Room Air Room Air 07/01/25 05:12 07/01/25 08:35 07/01/25 14:00 Temperature 96.8 F L 97.3 F L Pulse Rate 77 80 Respiratory Rate 12 18 Blood Pressure 111/64 110/62 Pulse Oximetry 98 99 Oxygen Delivery Room Air Intake/Output Intake/Output: Intake & Output 06/28/25 06/29/25 06/30/25 07/01/25 23:59 23:59 23:59 23:59 Intake Total 1000 1372.5 2480 Output Total 400 700 Balance 1000 972.5 1780 Meds/Results Medications: Active Medications Generic Name Dose Route Start Last Admin Trade Name Freq PRN Reason Stop Dose Admin Acetaminophen 650 mg 06/30/25 14:11 Acetaminophen 325 Mg Tablet PO Q4H PRN Mild Pain (1-3) or Fever Hydrocodone Bitart/Acetaminophen 1 tab 06/30/25 14:11 06/30/25 18:43 Hydrocodone/Acetaminophen (*Crx) 5-325 Mg Tablet PO 1 tab Q4H PRN Administration Moderate Pain (4-6) Clonazepam 0.5 mg 06/30/25 21:00 06/30/25 21:28 Clonazepam (*Crx) 0.5 Mg Tablet PO 0.5 mg HS KEYUR Administration Duloxetine HCl 60 mg 06/30/25 14:00 07/01/25 09:10 Duloxetine Hcl 60 Mg Capsule.Dr PO 60 mg DAILY@0800 KEYUR Administration Finasteride 5 mg 06/30/25 14:00 07/01/25 09:10 Finasteride 5 Mg Tablet PO 5 mg DAILY@0800 KEYUR Administration Sodium Chloride 1,000 mls @ 125 mls/hr 06/30/25 09:20 07/01/25 12:44 Normal Saline Iv IV CONT 125 mls/hr .Q8H KEYUR Administration Ceftriaxone Sodium 1 gm/ 50 mls @ 100 mls/hr 06/30/25 18:00 06/30/25 21:29 Sodium Chloride IVPB 100 mls/hr Q24H KEYUR Administration Morphine Sulfate 2 mg 06/30/25 09:16 06/30/25 21:29 Morphine Sulfate (*Crx) 2 Mg/Ml Inj IV PUSH 2 mg Q2H PRN Administration Pain Rated 7-10 Ondansetron HCl 4 mg 06/29/25 09:51 Ondansetron Inj 4 Mg/2 Ml Vial IV PUSH Q4H PRN Nausea Tamsulosin HCl 0.4 mg 06/30/25 21:00 06/30/25 21:28 Tamsulosin Hcl 0.4 Mg Capsule PO 0.4 mg HS KEYUR Administration Trazodone HCl 150 mg 06/29/25 18:50 06/29/25 19:48 Trazodone Hcl 50 Mg Tablet PO 150 mg HS PRN Administration Insomnia Trazodone HCl 150 mg 06/30/25 21:00 06/30/25 21:28 Trazodone Hcl 50 Mg Tablet PO 150 mg HS KEYUR Administration Radiology Results: ITS Impressions Abdomen/Pelvis CT 06/28/25 19:37 IMPRESSION: 1. Postoperative change of prior Whipple procedure with proximal 24 cm ill- defined soft tissue mass at the region of the resected head of the pancreas which severely narrows the main portal vein suspicious for recurrent pancreatic cancer. 2. Obstructing stones in the mid and distal right ureter with mild right hydronephrosis. 3. Shrunken nodular cirrhotic liver. 4. Diffuse colonic wall thickening, severe in the proximal colon. Differential would include colitis either infectious, inflammatory or ischemic in etiology or edema secondary to liver disease or portal venous hypertension. 5. Small to moderate-sized bilateral pleural effusions, diffuse mild mesenteric and body wall edema and small amount of ascites. Abdomen X-Ray 06/30/25 09:13 IMPRESSION: 1. Unchanged stones in the mid and distal right ureter. 2. Persistent pneumobilia. Retrograde Pyelogram 06/30/25 16:09 IMPRESSION: 1. Right internal ureteral stent placement. Please refer to real-time procedural findings for details. Labs Labs: Laboratory Results - last 24 hr 06/30/25 06/30/25 06/30/25 17:09 18:16 19:47 WBC 6.6 RBC 5.01 Hgb 13.6 L Hct 41.8 L MCV 83.4 MCH 27.1 MCHC 32.5 RDW 16.4 H Plt Count 166 MPV 9.5 Immature Gran % (Auto) 0.3 Neut % (Auto) 69.6 Lymph % (Auto) 19.2 [place] % (Auto) 8.6 H Eos % (Auto) 1.5 Baso % (Auto) 0.8 Lymph # (Auto) 1.27 [place] # (Auto) 0.6 Eos # (Auto) 0.1 Baso # (Auto) 0.1 Abs Immat Gran (auto) 0.02 Absolute Neuts (auto) 4.6 Absolute Nucleated RBC 0.000 Nucleated RBC % 0.0 Sodium Potassium Chloride Carbon Dioxide Anion Gap BUN Creatinine Estim Creat Clear Calc Estimated GFR Glucose POC Capillary Glucose 98 Calcium Urine Color Red H Urine Appearance Turbid H Urine pH 5.5 Ur Specific [place] 1.019 Urine Protein 3+ H Urine Glucose (UA) Negative Urine Ketones 2+ H Ur Blood (Man) 3+ H Urine Nitrate Positive H Urine Bilirubin 2+ H Urine Urobilinogen 1.0 Add Ur Microanalysis Reviewed Leukocyte Esterase Rfl 2+ H Urine RBC >100 H Urine WBC 11-20 H Ur Squamous Epith Cells None seen Urine Bacteria None seen Urine Casts 0-2 07/01/25 05:14 WBC 5.2 RBC 4.19 L Hgb 11.4 L Hct 36.3 L MCV 86.6 MCH 27.2 MCHC 31.4 L RDW 16.3 H Plt Count 130 L MPV 10.1 Immature Gran % (Auto) 0.4 Neut % (Auto) 60.8 Lymph % (Auto) 21.2 [place] % (Auto) 13.0 H Eos % (Auto) 3.8 Baso % (Auto) 0.8 Lymph # (Auto) 1.11 [place] # (Auto) 0.7 H Eos # (Auto) 0.2 Baso # (Auto) 0.0 Abs Immat Gran (auto) 0.02 Absolute Neuts (auto) 3.2 Absolute Nucleated RBC 0.000 Nucleated RBC % 0.0 Sodium 135 L Potassium 3.8 Chloride 105 Carbon Dioxide 25 Anion Gap 5 BUN 11 Creatinine 0.55 L Estim Creat Clear Calc 98 Estimated GFR > 60 Glucose 64 L POC Capillary Glucose Calcium 8.2 L Urine Color Urine Appearance Urine pH Ur Specific [place] Urine Protein Urine Glucose (UA) Urine Ketones Ur Blood (Man) Urine Nitrate Urine Bilirubin Urine Urobilinogen Add Ur Microanalysis Leukocyte Esterase Rfl Urine RBC Urine WBC Ur Squamous Epith Cells Urine Bacteria Urine Casts
[2025-07-01] MEDS: cefTRIAXone 1 GM in SODIUM CHLORIDE 0.9% IV 50 ML 100 ML IVPB (17:15)
[2025-07-01] MEDS: HYDROcodone/acetaminophen (*CRX) 5-325 MG TABLET 1 TAB PO (20:29)
[2025-07-01] MEDS: TAMSULOSIN HCL 0.4 MG CAPSULE PO (20:29)
[2025-07-01] MEDS: clonazePAM (*CRX) 0.5 MG TABLET PO (20:29)
[2025-07-01 22:00] VITALS: BP 147/84; PULSE 82; RESP 18; TEMP 36.7; O2SAT 96
[2025-07-02] MEDS: SODIUM CHLORIDE 0.9% IV 1,000 ML 125 ML IV CONT ×3 (03:43→20:15)
[2025-07-02 06:00] VITALS: BP 141/80; PULSE 72; RESP 18; TEMP 36.2; O2SAT 97
[2025-07-02 06:11] LABS: Hematocrit 34.2 % (42.0-52.0); Hemoglobin 10.9 g/dL (14.0-18.0); Immature Granulocyte Percent A 0.4 % (0-0.5); Lymphocytes Absolute Auto 0.87 K/mm3 (0.9-3.2); Mean Corpuscular HGB Conc 31.9 g/dl (32-36); Mean Corpuscular Hemoglobin 27.8 pg (26-34); Mean Corpuscular Volume 87.2 fl (80-100); Nucleated Red Blood Cells Absolute Auto 0.000 K/mm3 (0.0-0.012); Nucleated Red Blood Cells Perc 0.0 % (0.0-0.2); Platelet Count Result 128 k/mm3 (150-375); Red Blood Count 3.92 M/mm3 (4.6-6.20); White Blood Count 5.3 K/mm3 (4.5-10.0)
[2025-07-02 06:26] LABS: Anion Gap 2 mmol/L (4-12); Blood Urea Nitrogen 10 mg/dL (9-20); Calcium 7.9 mg/dL (8.4-10.2); Carbon Dioxide 25 mmol/L (22-30); Chloride 108 mmol/L (98-107); Estimated CRCL calculation 93 ml/min; Estimated Glomerular Filt Rate > 60; Glucose 83 mg/dL (65-110); Potassium 3.4 mmol/L (3.4-5.0); Sodium 135 mmol/L (137-145)
[2025-07-02] MEDS: DULoxetine HCL 60 MG CAPSULE.DR PO (08:23)
[2025-07-02] MEDS: FINASTERIDE 5 MG TABLET PO (08:23)
[2025-07-02 13:49] VITALS: BP 128/71; PULSE 87; RESP 16; TEMP 36; O2SAT 98
--- NOTE | 2025-07-02 16:06 | P.PNIM_ITS ---
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 Patient complains of diarrhea for last 10 days he has been taking Pepto-Bismol without help. He has some left lower abdominal pain and generalized weakness. Lab work in the ED shows hemoglobin of 13.5 sodium of 134, potassium of 3.2, creatinine of 0.49, calcium to 8.2, UA shows negative nitrates, trace leukocyte esterase over 100 rbc's, 6-[address] abdomen pelvis show Postoperative change of prior Whipple procedure with proximal 24 cm ill-defined soft tissue mass at the region of the resected head of the pancreas which severely narrows the main portal vein suspicious for recurrent pancreatic cancer, Obstructing stones in the mid and distal right ureter with mild right hydronephrosis, Diffuse colonic wall thickening, severe in the proximal colon, and Small to moderate-sized bilateral pleural effusions. (1) Pancreatic mass: Status post Whipple with new pancreatic mass seen on CT Transfer to [place] when bed is available. Has been accepted (2) Calculus of right ureter: Appreciate urology help Patient had a right stent placed by Urology Kidney stone will be dealt with at a later date (3) BPH (benign prostatic hyperplasia): Continue with Flomax and Proscar (4) UTI (urinary tract infection): Continue with ceftriaxone Follow-up culture and sensitivity, gram negative bacilli isolated, await final ID and sensitivites AM labs (5) Colitis: Continue with IV fluids Follow up stool culture patient reports diarrhea resolved, had normal bowel movement yesterday (6) Anxiety: Continue Klonopin and Cymbalta 7. DVT prophylaxis: SCDs 8. Code status: Full 9. Disposition: Await transfer to [facility] Date/time seen: 07/02/25 16:06 Interval history: Patient seen and examined for a follow up visit. Patient lying in bed in no signs of distress. patient reports some abdominal discomfort. Patient reports he has not had diarrhea and had a normal bowel movement yesterday. Patient continues on IV Rocephin. Urine culture with gram negative bacilli isolated, wait for final ID and sensitivites. Patient awaiting transfer to [facility] for a new mass on pancreas. Review of Systems Review of Systems: 12 systems were reviewed and are negativ e except for as per HPI. All systems reviewed & are unremarkable except as noted in HPI and below Exam Narrative: General: well appearing, appears stated age. HEENT: normocephalic, atraumatic. Mucous membranes moist. EOMI, PERRLA, bilateral sclera anicteric, no conjunctival injection. Neck supple without JVD, lymphadenopathy, or bruit. Respiratory: clear to ascultation bilaterally. No rales/rhonic/wheezes. Cardiovascular: Regular rate and rhythm, normal S1-S2 upon ascultation. No murmurs, rubs, or clicks. PMI is nondisplaced, capillary refill less than 3 second. Abdomen: Soft, round, no pulsatile masses, nondistended and nontender. No rebound, no guarding. No CVA tenderness, no hepatosplenomegaly. Bowel sounds present to all four quadrants. No high pitch or tinkling sounds, resonant to percussion. Extremities: No cyanosis, clubbing, or edema present. Pulses are palpable 2/2. Active ROM to all four extremities. Neuro: Alert and orientated x 4. PERRLA. Cranial nerves 2-12 intact without focal deficit. Skin: Warm, dry, and intact, without rash, erythema, or lesion. Psych: pleasant, cooperative, normal speech, normal affect, no hallucinations, no dysarthia Objective Data Vital Signs Vital Signs: Vital Signs - 24 hr 07/01/25 20:00 07/01/25 22:00 07/02/25 06:00 Temperature 98.0 F 97.1 F L Pulse Rate 82 72 Respiratory Rate 18 18 Blood Pressure 147/84 H 141/80 H Pulse Oximetry 96 97 Oxygen Delivery Room Air 07/02/25 08:25 07/02/25 13:49 Temperature 96.8 F L Pulse Rate 87 Respiratory Rate 16 Blood Pressure 128/71 Pulse Oximetry 98 Oxygen Delivery Room Air Intake/Output Intake/Output: Intake & Output 06/29/25 06/30/25 07/01/25 07/02/25 23:59 23:59 23:59 23:59 Intake Total 1000 1422.5 3926.7 2686.3 Output Total 400 1100 975 Balance 1000 1022.5 2826.7 1711.3 Meds/Results Medications: Active Medications Generic Name Dose Route Start Last Admin Trade Name Freq PRN Reason Stop Dose Admin Acetaminophen 650 mg 06/30/25 14:11 Acetaminophen 325 Mg Tablet PO Q4H PRN Mild Pain (1-3) or Fever Hydrocodone Bitart/Acetaminophen 1 tab 06/30/25 14:11 07/01/25 20:29 Hydrocodone/Acetaminophen (*Crx) 5-325 Mg Tablet PO 1 tab Q4H PRN Administration Moderate Pain (4-6) Clonazepam 0.5 mg 06/30/25 21:00 07/01/25 20:29 Clonazepam (*Crx) 0.5 Mg Tablet PO 0.5 mg HS KEYUR Administration Duloxetine HCl 60 mg 06/30/25 14:00 07/02/25 08:23 Duloxetine Hcl 60 Mg Capsule.Dr PO 60 mg DAILY@0800 KEYUR Administration Finasteride 5 mg 06/30/25 14:00 07/02/25 08:23 Finasteride 5 Mg Tablet PO 5 mg DAILY@0800 KEYUR Administration Sodium Chloride 1,000 mls @ 125 mls/hr 06/30/25 09:20 07/02/25 11:48 Normal Saline Iv IV CONT 125 mls/hr .Q8H KEYUR Administration Ceftriaxone Sodium 1 gm/ 50 mls @ 100 mls/hr 06/30/25 18:00 07/01/25 17:15 Sodium Chloride IVPB 100 mls/hr Q24H KEYUR Administration Morphine Sulfate 2 mg 06/30/25 09:16 06/30/25 21:29 Morphine Sulfate (*Crx) 2 Mg/Ml Inj IV PUSH 2 mg Q2H PRN Administration Pain Rated 7-10 Ondansetron HCl 4 mg 06/29/25 09:51 Ondansetron Inj 4 Mg/2 Ml Vial IV PUSH Q4H PRN Nausea Tamsulosin HCl 0.4 mg 06/30/25 21:00 07/01/25 20:29 Tamsulosin Hcl 0.4 Mg Capsule PO 0.4 mg HS KEYUR Administration Trazodone HCl 150 mg 06/29/25 18:50 06/29/25 19:48 Trazodone Hcl 50 Mg Tablet PO 150 mg HS PRN Administration Insomnia Trazodone HCl 150 mg 06/30/25 21:00 07/01/25 20:29 Trazodone Hcl 50 Mg Tablet PO 150 mg HS KEYUR Administration Radiology Results: ITS Impressions Abdomen/Pelvis CT 06/28/25 19:37 IMPRESSION: 1. Postoperative change of prior Whipple procedure with proximal 24 cm ill- defined soft tissue mass at the region of the resected head of the pancreas which severely narrows the main portal vein suspicious for recurrent pancreatic cancer. 2. Obstructing stones in the mid and distal right ureter with mild right hydronephrosis. 3. Shrunken nodular cirrhotic liver. 4. Diffuse colonic wall thickening, severe in the proximal colon. Differential would include colitis either infectious, inflammatory or ischemic in etiology or edema secondary to liver disease or portal venous hypertension. 5. Small to moderate-sized bilateral pleural effusions, diffuse mild mesenteric and body wall edema and small amount of ascites. Abdomen X-Ray 06/30/25 09:13 IMPRESSION: 1. Unchanged stones in the mid and distal right ureter. 2. Persistent pneumobilia. Retrograde Pyelogram 06/30/25 16:09 IMPRESSION: 1. Right internal ureteral stent placement. Please refer to real-time procedural findings for details. Labs Labs: Laboratory Results - last 24 hr 07/02/25 05:27 WBC 5.3 RBC 3.92 L Hgb 10.9 L Hct 34.2 L MCV 87.2 MCH 27.8 MCHC 31.9 L RDW 16.5 H Plt Count 128 L MPV 10.4 Immature Gran % (Auto) 0.4 Neut % (Auto) 64.5 Lymph % (Auto) 16.4 L [place] % (Auto) 13.2 H Eos % (Auto) 4.9 H Baso % (Auto) 0.6 Lymph # (Auto) 0.87 L [place] # (Auto) 0.7 H Eos # (Auto) 0.3 Baso # (Auto) 0.0 Abs Immat Gran (auto) 0.02 Absolute Neuts (auto) 3.4 Absolute Nucleated RBC 0.000 Nucleated RBC % 0.0 Sodium 135 L Potassium 3.4 Chloride 108 H Carbon Dioxide 25 Anion Gap 2 L BUN 10 Creatinine 0.58 L Estim Creat Clear Calc 93 Estimated GFR > 60 Glucose 83 Calcium 7.9 L Quality VTE Prophylaxis VTE prophylaxis: mechanical ordered
[2025-07-02] MEDS: HYDROcodone/acetaminophen (*CRX) 5-325 MG TABLET 1 TAB PO ×2 (16:47→20:48)
[2025-07-02] MEDS: cefTRIAXone 1 GM in SODIUM CHLORIDE 0.9% IV 50 ML 100 ML IVPB (16:47)
[2025-07-02] MEDS: TAMSULOSIN HCL 0.4 MG CAPSULE PO (20:45)
[2025-07-02] MEDS: clonazePAM (*CRX) 0.5 MG TABLET PO (20:45)
[2025-07-02 22:12] VITALS: BP 127/74; PULSE 94; RESP 18; TEMP 36.1; O2SAT 97
[2025-07-03] VITALS (10 sets, daily range): BP systolic 117–138; BP diastolic 71–80; PULSE 86–115; RESP 16–20; TEMP 36.1–36.4; O2SAT 94–100
[2025-07-03] MEDS: SODIUM CHLORIDE 0.9% IV 1,000 ML 125 ML IV CONT ×2 (03:47→13:23)
[2025-07-03 06:17] LABS: Hematocrit 37.6 % (42.0-52.0); Hemoglobin 11.9 g/dL (14.0-18.0); Immature Granulocyte Percent A 0.3 % (0-0.5); Immature Platelet Fraction Pct 3.1 % (0.9-11.2); Lymphocytes Absolute Auto 1.23 K/mm3 (0.9-3.2); Mean Corpuscular HGB Conc 31.6 g/dl (32-36); Mean Corpuscular Hemoglobin 27.4 pg (26-34); Mean Corpuscular Volume 86.4 fl (80-100); Nucleated Red Blood Cells Absolute Auto 0.000 K/mm3 (0.0-0.012); Nucleated Red Blood Cells Perc 0.0 % (0.0-0.2); Platelet Count Result 124 k/mm3 (150-375); Red Blood Count 4.35 M/mm3 (4.6-6.20); White Blood Count 6.4 K/mm3 (4.5-10.0)
[2025-07-03 06:36] LABS: Alanine Aminotransferase 15 U/L (6-50); Albumin Level 2.4 g/dL (3.5-5.1); Alkaline Phosphatase 106 U/L (38-126); Anion Gap 3 mmol/L (4-12); Aspartate Amino Transferase 25 U/L (17-59); Bilirubin,Total 0.5 mg/dL (0.2-1.3); Blood Urea Nitrogen 10 mg/dL (9-20); Calcium 8.0 mg/dL (8.4-10.2); Carbon Dioxide 26 mmol/L (22-30); Chloride 108 mmol/L (98-107); Estimated CRCL calculation 111 ml/min; Estimated Glomerular Filt Rate > 60; Glucose 88 mg/dL (65-110); Potassium 3.2 mmol/L (3.4-5.0); Sodium 137 mmol/L (137-145); Total Protein 5.6 g/dL (6.3-8.2)
[2025-07-03] MEDS: DULoxetine HCL 60 MG CAPSULE.DR PO (08:49)
[2025-07-03] MEDS: FINASTERIDE 5 MG TABLET PO (08:50)
--- NOTE | 2025-07-03 12:45 | PM.IMPN ---
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 Patient complains of diarrhea for last 10 days he has been taking Pepto-Bismol without help. He has some left lower abdominal pain and generalized weakness. Lab work in the ED shows hemoglobin of 13.5 sodium of 134, potassium of 3.2, creatinine of 0.49, calcium to 8.2, UA shows negative nitrates, trace leukocyte esterase over 100 rbc's, 6-[address] abdomen pelvis show Postoperative change of prior Whipple procedure with proximal 24 cm ill-defined soft tissue mass at the region of the resected head of the pancreas which severely narrows the main portal vein suspicious for recurrent pancreatic cancer, Obstructing stones in the mid and distal right ureter with mild right hydronephrosis, Diffuse colonic wall thickening, severe in the proximal colon, and Small to moderate-sized bilateral pleural effusions. (1) Pancreatic mass: Status post Whipple with new pancreatic mass seen on CT Transfer to [place] when bed is available. Has been accepted (2) Calculus of right ureter: Appreciate urology help Patient had a right stent placed by Urology Kidney stone will be dealt with at a later date (3) BPH (benign prostatic hyperplasia): Continue with Flomax and Proscar (4) UTI (urinary tract infection): Continue with ceftriaxone Urine culture shows growth of Klebsiella pneumoniae susceptible to ceftriaxone -continue IV ceftriaxone Monitor daily labs (5) Colitis: Continue with IV fluids Follow up stool culture patient reports diarrhea resolved, had normal bowel movement yesterday (6) Anxiety: Continue Klonopin and Cymbalta 7. DVT prophylaxis: SCDs 8. Code status: Full 9. Disposition: Await transfer to [facility] Date/time seen: 07/03/25 12:45 Interval history: Patient examined and doing well this a.m.. Patient continues on IV Rocephin. Urine culture shows growth of Klebsiella pneumonia, susceptible to ceftriaxone -continue throughout hospitalization. Patient awaiting transfer to [facility] for a new mass on pancreas. Review of Systems Review of Systems: 12 systems were reviewed and are negative except for as per HPI. All systems reviewed & are unremarkable except as noted in HPI and below Exam Narrative: General: well appearing, appears stated age. HEENT: normocephalic, atraumatic. Mucous membranes moist. EOMI, PERRLA, bilateral sclera anicteric, no conjunctival injection. Neck supple without JVD, lymphadenopathy, or bruit. Respiratory: clear to ascultation bilaterally. No rales/rhonic/wheezes. Cardiovascular: Regular rate and rhythm, normal S1-S2 upon ascultation. No murmurs, rubs, or clicks. PMI is nondisplaced, capillary refill less than 3 second. Abdomen: Soft, round, no pulsatile masses, nondistended and nontender. No rebound, no guarding. No CVA tenderness, no hepatosplenomegaly. Bowel sounds present to all four quadrants. No high pitch or tinkling sounds, resonant to percussion. Extremities: No cyanosis, clubbing, or edema present. Pulses are palpable 2/2. Active ROM to all four extremities. Neuro: Alert and orientated x 4. PERRLA. Cranial nerves 2-12 intact without focal deficit. Skin: Warm, dry, and intact, without rash, erythema, or lesion. Psych: pleasant, cooperative, normal speech, normal affect, no hallucinations, no dysarthia Objective Data Vital Signs Vital Signs: Vital Signs - 24 hr 07/02/25 13:49 07/02/25 20:00 07/02/25 22:12 Temperature 96.8 F L 97.0 F L Pulse Rate 87 94 Respiratory Rate 16 18 Blood Pressure 128/71 127/74 Pulse Oximetry 98 97 Oxygen Delivery Room Air 07/03/25 06:00 07/03/25 08:00 Temperature 97.5 F L Pulse Rate 86 86 Respiratory Rate 18 18 Blood Pressure 127/80 Pulse Oximetry 96 96 Oxygen Delivery Room Air Intake/Output Intake/Output: Intake & Output 06/30/25 07/01/25 07/02/25 07/03/25 23:59 23:59 23:59 23:59 Intake Total 1422.5 3976.7 4376.3 1137.5 Output Total 400 1100 1125 1500 Balance 1022.5 2876.7 3251.3 -362.5 Meds/Results Medications: Active Medications Generic Name Dose Route Start Last Admin Trade Name Freq PRN Reason Stop Dose Admin Acetaminophen 650 mg 06/30/25 14:11 Acetaminophen 325 Mg Tablet PO Q4H PRN Mild Pain (1-3) or Fever Hydrocodone Bitart/Acetaminophen 1 tab 06/30/25 14:11 07/02/25 20:48 Hydrocodone/Acetaminophen (*Crx) 5-325 Mg Tablet PO 1 tab Q4H PRN Administration Moderate Pain (4-6) Clonazepam 0.5 mg 06/30/25 21:00 07/02/25 20:45 Clonazepam (*Crx) 0.5 Mg Tablet PO 0.5 mg HS KEYUR Administration Duloxetine HCl 60 mg 06/30/25 14:00 07/03/25 08:49 Duloxetine Hcl 60 Mg Capsule.Dr PO 60 mg DAILY@0800 KEYUR Administration Finasteride 5 mg 06/30/25 14:00 07/03/25 08:50 Finasteride 5 Mg Tablet PO 5 mg DAILY@0800 KEYUR Administration Sodium Chloride 1,000 mls @ 125 mls/hr 06/30/25 09:20 07/03/25 03:47 Normal Saline Iv IV CONT 125 mls/hr .Q8H KEYUR Administration Ceftriaxone Sodium 1 gm/ 50 mls @ 100 mls/hr 06/30/25 18:00 07/02/25 17:17 Sodium Chloride IVPB Infused Q24H KEYUR Infusion Morphine Sulfate 2 mg 06/30/25 09:16 06/30/25 21:29 Morphine Sulfate (*Crx) 2 Mg/Ml Inj IV PUSH 2 mg Q2H PRN Administration Pain Rated 7-10 Ondansetron HCl 4 mg 06/29/25 09:51 Ondansetron Inj 4 Mg/2 Ml Vial IV PUSH Q4H PRN Nausea Polyethylene Glycol 17 gm 07/02/25 17:20 07/02/25 17:29 Polyethylene Glycol 3350 17 Gm Powd.Pack PO 17 gm DAILY PRN Administration Constipation Tamsulosin HCl 0.4 mg 06/30/25 21:00 07/02/25 20:45 Tamsulosin Hcl 0.4 Mg Capsule PO 0.4 mg HS KEYUR Administration Trazodone HCl 150 mg 06/29/25 18:50 06/29/25 19:48 Trazodone Hcl 50 Mg Tablet PO 150 mg HS PRN Administration Insomnia Trazodone HCl 150 mg 06/30/25 21:00 07/02/25 20:45 Trazodone Hcl 50 Mg Tablet PO 150 mg HS KEYUR Administration Radiology Results: ITS Impressions Abdomen/Pelvis CT 06/28/25 19:37 IMPRESSION: 1. Postoperative change of prior Whipple procedure with proximal 24 cm ill-defined soft tissue mass at the region of the resected head of the pancreas which severely narrows the main portal vein suspicious for recurrent pancreatic cancer. 2. Obstructing stones in the mid and distal right ureter with mild right hydronephrosis. 3. Shrunken nodular cirrhotic liver. 4. Diffuse colonic wall thickening, severe in the proximal colon. Differential would include colitis either infectious, inflammatory or ischemic in etiology or edema secondary to liver disease or portal venous hypertension. 5. Small to moderate-sized bilateral pleural effusions, diffuse mild mesenteric and body wall edema and small amount of ascites. Abdomen X-Ray 06/30/25 09:13 IMPRESSION: 1. Unchanged stones in the mid and distal right ureter. 2. Persistent pneumobilia. Retrograde Pyelogram 06/30/25 16:09 IMPRESSION: 1. Right internal ureteral stent placement. Please refer to real-time procedural findings for details. Labs Labs: Laboratory Results - last 24 hr 07/03/25 05:51 WBC 6.4 RBC 4.35 L Hgb 11.9 L Hct 37.6 L MCV 86.4 MCH 27.4 MCHC 31.6 L RDW 16.4 H Plt Count 124 L MPV 10.2 Immature Gran % (Auto) 0.3 Neut % (Auto) 65.2 Lymph % (Auto) 19.4 [place] % (Auto) 11.3 H Eos % (Auto) 3.3 Baso % (Auto) 0.5 Lymph # (Auto) 1.23 [place] # (Auto) 0.7 H Eos # (Auto) 0.2 Baso # (Auto) 0.0 Abs Immat Gran (auto) 0.02 Absolute Neuts (auto) 4.1 Absolute Nucleated RBC 0.000 Nucleated RBC % 0.0 % Immature Plt Fraction 3.1 Sodium 137 Potassium 3.2 L Chloride 108 H Carbon Dioxide 26 Anion Gap 3 L BUN 10 Creatinine 0.48 L Estim Creat Clear Calc 111 Estimated GFR > 60 Glucose 88 Calcium 8.0 L Total Bilirubin 0.5 AST 25 ALT 15 Alkaline Phosphatase 106 Total Protein 5.6 L Albumin 2.4 L Quality VTE Prophylaxis VTE prophylaxis: mechanical ordered
[2025-07-03] MEDS: POTASSIUM CHLORIDE 20 MEQ ER TABLET PO (16:34)
[2025-07-03] MEDS: IPRATROPIUM 0.5 MG/ALBUTEROL SULFATE 2.5 MG AMPUL.NEB 3 ML INHALATION ×2 (17:10→20:00)
[2025-07-03] MEDS: AMPICILLIN SODIUM/SULBACTAM 1.5 GM in SODIUM CHLORIDE 0.9% IV 50 ML IVPB (18:35)
--- NOTE | 2025-07-03 20:04 | PCRCNOTE ---
Pt U/A to tolerate vest @ this time recent surg procedure & pain
[2025-07-03] MEDS: TAMSULOSIN HCL 0.4 MG CAPSULE PO (20:54)
[2025-07-03] MEDS: clonazePAM (*CRX) 0.5 MG TABLET PO (20:54)
[2025-07-04] VITALS (12 sets, daily range): BP systolic 115–128; BP diastolic 61–71; PULSE 68–94; RESP 18–20; TEMP 36.2; O2SAT 92–98
[2025-07-04] MEDS: AMPICILLIN SODIUM/SULBACTAM 1.5 GM in SODIUM CHLORIDE 0.9% IV 50 ML IVPB ×5 (00:24→23:20)
[2025-07-04] MEDS: IPRATROPIUM 0.5 MG/ALBUTEROL SULFATE 2.5 MG AMPUL.NEB 3 ML INHALATION ×4 (02:18→20:59)
[2025-07-04] MEDS: DULoxetine HCL 60 MG CAPSULE.DR PO (08:24)
[2025-07-04] MEDS: FINASTERIDE 5 MG TABLET PO (08:24)
[2025-07-04 08:36] LABS: Hematocrit 38.4 % (42.0-52.0); Hemoglobin 12.2 g/dL (14.0-18.0); Immature Granulocyte Percent A 0.3 % (0-0.5); Immature Platelet Fraction Pct 4.3 % (0.9-11.2); Lymphocytes Absolute Auto 1.04 K/mm3 (0.9-3.2); Mean Corpuscular HGB Conc 31.8 g/dl (32-36); Mean Corpuscular Hemoglobin 27.4 pg (26-34); Mean Corpuscular Volume 86.1 fl (80-100); Nucleated Red Blood Cells Absolute Auto 0.000 K/mm3 (0.0-0.012); Nucleated Red Blood Cells Perc 0.0 % (0.0-0.2); Platelet Count Result 120 k/mm3 (150-375); Red Blood Count 4.46 M/mm3 (4.6-6.20); White Blood Count 7.5 K/mm3 (4.5-10.0)
[2025-07-04 08:56] LABS: Anion Gap 4 mmol/L (4-12); Blood Urea Nitrogen 11 mg/dL (9-20); Calcium 8.2 mg/dL (8.4-10.2); Carbon Dioxide 24 mmol/L (22-30); Chloride 108 mmol/L (98-107); Estimated CRCL calculation 115 ml/min; Estimated Glomerular Filt Rate > 60; Glucose 87 mg/dL (65-110); Potassium 3.5 mmol/L (3.4-5.0); Sodium 136 mmol/L (137-145)
[2025-07-04 08:58] LABS: CRP 6.4 mg/dL (<1.0); Magnesium 2.0 mg/dL (1.6-2.3)
[2025-07-04 09:15] LABS: Procalcitonin 0.0 ng/mL
[2025-07-04 09:19] LABS: Acanthocytes 1+
[2025-07-04 09:22] LABS: Schistocytes Rare
--- NOTE | 2025-07-04 10:04 | PCSTNOTE ---
Please refer to the Bedside Swallow Evaluation in the EMR. Please note, silent aspiration cannot be ruled out at bedside.
--- NOTE | 2025-07-04 12:23 | P.PNIM_ITS ---
Progress Note: A&P Assessment and Plan (1) Pancreatic mass: Code(s): K86.89 - Other specified diseases of pancreas Status: Acute Assessment and Plan: -Status post Whipple with new pancreatic mass seen on CT -Transfer to [place] when bed is available. Has been accepted (2) Aspiration pneumonia: Code(s): J69.0 - Pneumonitis due to inhalation of food and vomit Status: Acute Assessment and Plan: - patient choked on potassium pill yesterday - CXR 07/04 with interval development of bilateral perihilar and basilar airspace disease suspicious for pneumonia -Augmentin stopped, started Unasyn - currently on RA - monitor respiratory status - BEAD STRINGER recommended regular diet, but recommended MBS either on Sunday or at [place] once transferred (3) UTI (urinary tract infection): Code(s): N39.0 - Urinary tract infection, site not specified Status: Acute Assessment and Plan: - urine culture with Klebsiella pneumoniae, sensitive to Augmentin - currently on Unasyn (4) Calculus of right ureter: Code(s): N20.1 - Calculus of ureter Status: Acute Assessment and Plan: - s/p ureteral stent placement 06/30 -Kidney stone will be dealt with at a later date - Cr stable (5) BPH (benign prostatic hyperplasia): Code(s): N40.0 - Benign prostatic hyperplasia without lower urinary tract symptoms Status: Acute Assessment and Plan: - continue Flomax and Proscar (6) Diarrhea: Qualifiers: Diarrhea type: unspecified type Qualified Code(s): R19.7 - Diarrhea, unspecified Code(s): R19.7 - Diarrhea, unspecified Status: Acute Assessment and Plan: - CT noted concerns for colitis, but diarrhea resolved (7) Anxiety: Code(s): F41.9 - Anxiety disorder, unspecified Status: Acute Assessment and Plan: - continue home duloxetine, clonazepam Plan Disposition: Await transfer to [facility] Date/time seen: 07/04/25 12:23 Interval history: Patient seen and examined at bedside. Has some mild SOB after suspected aspiration yesterday afternoon. Denies further acute complaints. Eager to transfer. Review of Systems Review of Systems: All systems reviewed & are unremarkable except as noted in HPI and below Exam Narrative: General: NAD, frail Eyes: EOMI ENT: neck supple Cardiovascular: Regular rate and rhythm Respiratory: wheezing RML and RLL, respirations even and unlabored on RA Gastrointestinal: Soft, non tender Genitourinary: no suprapubic tenderness Musculoskeletal: No edema Skin: warm, dry Neuro: Alert. Psych: Mood appropriate Objective Data Vital Signs Vital Signs: Vital Signs - 24 hr 07/03/25 14:00 07/03/25 17:10 07/03/25 17:12 Temperature 97.2 F L Pulse Rate 90 110 H 110 H Respiratory Rate 16 20 20 Blood Pressure 117/71 Pulse Oximetry 99 94 Oxygen Delivery Nasal Cannula Oxygen Flow Rate 3.5 07/03/25 17:20 07/03/25 20:00 07/03/25 20:00 Temperature Pulse Rate 115 H 100 Respiratory Rate 20 20 Blood Pressure Pulse Oximetry 99 Oxygen Delivery Nasal Cannula Oxygen Flow Rate 1 07/03/25 20:06 07/03/25 20:09 07/03/25 21:32 Temperature 97.0 F L Pulse Rate 99 100 Respiratory Rate 20 18 Blood Pressure 138/80 Pulse Oximetry 97 100 Oxygen Delivery Nasal Cannula Oxygen Flow Rate 1 07/04/25 02:19 07/04/25 02:29 07/04/25 06:00 Temperature 97.1 F L Pulse Rate 89 88 82 Respiratory Rate 20 20 18 Blood Pressure 115/61 Pulse Oximetry 97 Oxygen Delivery Oxygen Flow Rate 07/04/25 08:20 07/04/25 08:47 07/04/25 08:51 Temperature Pulse Rate 86 68 Respiratory Rate 20 20 Blood Pressure Pulse Oximetry 92 Oxygen Delivery Room Air Room Air Oxygen Flow Rate 07/04/25 08:53 Temperature Pulse Rate 83 Respiratory Rate 20 Blood Pressure Pulse Oximetry Oxygen Delivery Oxygen Flow Rate Intake/Output Intake/Output: Intake & Output 07/01/25 07/02/25 07/03/25 07/04/25 23:59 23:59 23:59 23:59 Intake Total 3976.7 4376.3 2547.5 1590 Output Total 1100 1125 1900 1300 Balance 2876.7 3251.3 647.5 290 Meds/Results Medications: Active Medications Generic Name Dose Route Start Last Admin Trade Name Freq PRN Reason Stop Dose Admin Acetaminophen 650 mg 06/30/25 14:11 Acetaminophen 325 Mg Tablet PO Q4H PRN Mild Pain (1-3) or Fever Hydrocodone Bitart/Acetaminophen 1 tab 06/30/25 14:11 07/02/25 20:48 Hydrocodone/Acetaminophen (*Crx) 5-325 Mg Tablet PO 1 tab Q4H PRN Administration Moderate Pain (4-6) Albuterol/Ipratropium 3 ml 07/03/25 20:00 07/04/25 08:47 Ipratropium 0.5 Mg/Albuterol Sulfate 2.5 Mg Ampul.Neb 3 Ml INHALATION 3 ml Q6HRT KEYUR Administration Clonazepam 0.5 mg 06/30/25 21:00 07/03/25 20:54 Clonazepam (*Crx) 0.5 Mg Tablet PO 0.5 mg HS KEYUR Administration Duloxetine HCl 60 mg 06/30/25 14:00 07/04/25 08:24 Duloxetine Hcl 60 Mg Capsule.Dr PO 60 mg DAILY@0800 KEYUR Administration Finasteride 5 mg 06/30/25 14:00 07/04/25 08:24 Finasteride 5 Mg Tablet PO 5 mg DAILY@0800 KEYUR Administration Guaifenesin/Dextromethorphan 10 ml 07/03/25 17:24 07/03/25 18:35 Guaifenesin/Dextromethorphan 10 Ml Udc PO 10 ml Q4H PRN Administration Cough Ampicillin Sodium/Sulbactam 50 mls @ 100 mls/hr 07/03/25 18:00 07/04/25 05:34 Sodium 1.5 gm/ Sodium Chloride IVPB 100 mls/hr Q6H KEYUR Administration Morphine Sulfate 2 mg 06/30/25 09:16 06/30/25 21:29 Morphine Sulfate (*Crx) 2 Mg/Ml Inj IV PUSH 2 mg Q2H PRN Administration Pain Rated 7-10 Ondansetron HCl 4 mg 06/29/25 09:51 Ondansetron Inj 4 Mg/2 Ml Vial IV PUSH Q4H PRN Nausea Polyethylene Glycol 17 gm 07/02/25 17:20 07/04/25 08:28 Polyethylene Glycol 3350 17 Gm Powd.Pack PO 17 gm DAILY PRN Administration Constipation Tamsulosin HCl 0.4 mg 06/30/25 21:00 07/03/25 20:54 Tamsulosin Hcl 0.4 Mg Capsule PO 0.4 mg HS KEYUR Administration Trazodone HCl 150 mg 06/29/25 18:50 06/29/25 19:48 Trazodone Hcl 50 Mg Tablet PO 150 mg HS PRN Administration Insomnia Trazodone HCl 150 mg 06/30/25 21:00 07/03/25 20:54 Trazodone Hcl 50 Mg Tablet PO 150 mg HS KEYUR Administration Radiology Results: ITS Impressions Abdomen/Pelvis CT 06/28/25 19:37 IMPRESSION: 1. Postoperative change of prior Whipple procedure with proximal 24 cm ill- defined soft tissue mass at the region of the resected head of the pancreas which severely narrows the main portal vein suspicious for recurrent pancreatic cancer. 2. Obstructing stones in the mid and distal right ureter with mild right hydronephrosis. 3. Shrunken nodular cirrhotic liver. 4. Diffuse colonic wall thickening, severe in the proximal colon. Differential would include colitis either infectious, inflammatory or ischemic in etiology or edema secondary to liver disease or portal venous hypertension. 5. Small to moderate-sized bilateral pleural effusions, diffuse mild mesenteric and body wall edema and small amount of ascites. Abdomen X-Ray 06/30/25 09:13 IMPRESSION: 1. Unchanged stones in the mid and distal right ureter. 2. Persistent pneumobilia. Retrograde Pyelogram 06/30/25 16:09 IMPRESSION: 1. Right internal ureteral stent placement. Please refer to real-time procedural findings for details. Chest X-Ray 07/03/25 17:18 Impression: 1: Interval development of bilateral perihilar and basilar airspace disease, suspicious for pneumonia. Labs Labs: Laboratory Results - last 24 hr 07/02/25 07/04/25 17:19 08:23 WBC 7.5 RBC 4.46 L Hgb 12.2 L Hct 38.4 L MCV 86.1 MCH 27.4 MCHC 31.8 L RDW 16.8 H Plt Count 120 L MPV 10.6 H Immature Gran % (Auto) 0.3 Neut % (Auto) 76.5 H Lymph % (Auto) 13.9 L Dane % (Auto) 7.1 Eos % (Auto) 1.7 Baso % (Auto) 0.5 Lymph # (Auto) 1.04 Dane # (Auto) 0.5 Eos # (Auto) 0.1 Baso # (Auto) 0.0 Abs Immat Gran (auto) 0.02 Absolute Neuts (auto) 5.7 Absolute Nucleated RBC 0.000 Band Neutrophils % Not Reportable Nucleated RBC % 0.0 Platelet Estimate Slightly decreased % Immature Plt Fraction 4.3 Acanthocytes (Spur) 1+ Schistocytes Rare Sodium 136 L Potassium 3.5 Chloride 108 H Carbon Dioxide 24 Anion Gap 4 BUN 11 Creatinine 0.46 L Estim Creat Clear Calc 115 Estimated GFR > 60 Glucose 87 Calcium 8.2 L Magnesium 2.0 C-Reactive Protein 6.4 H Procalcitonin 0.0 C. difficile (PCR) Cancelled Quality VTE Prophylaxis VTE prophylaxis: mechanical ordered
[2025-07-04] MEDS: clonazePAM (*CRX) 0.5 MG TABLET PO (21:16)
[2025-07-04] MEDS: TAMSULOSIN HCL 0.4 MG CAPSULE PO (21:16)
[2025-07-05] VITALS (11 sets, daily range): BP systolic 122–138; BP diastolic 69–82; PULSE 71–95; RESP 16–20; TEMP 36.1–36.5; O2SAT 92–99
[2025-07-05] MEDS: IPRATROPIUM 0.5 MG/ALBUTEROL SULFATE 2.5 MG AMPUL.NEB 3 ML INHALATION ×4 (01:49→21:04)
[2025-07-05] MEDS: AMPICILLIN SODIUM/SULBACTAM 1.5 GM in SODIUM CHLORIDE 0.9% IV 50 ML IVPB (05:15)
[2025-07-05] MEDS: HYDROcodone/acetaminophen (*CRX) 5-325 MG TABLET 1 TAB PO ×2 (06:40→20:20)
[2025-07-05] MEDS: DULoxetine HCL 60 MG CAPSULE.DR PO (08:44)
[2025-07-05] MEDS: FINASTERIDE 5 MG TABLET PO (08:44)
[2025-07-05] MEDS: MORPHINE SULFATE (*CRX) 2 MG/ML INJ IV PUSH ×2 (10:04→21:35)
--- NOTE | 2025-07-05 12:22 | P.PNIM_ITS ---
Progress Note: A&P Assessment and Plan (1) Pancreatic mass: Code(s): K86.89 - Other specified diseases of pancreas Status: Acute Assessment and Plan: - admit CT A/P showed postoperative change of prior Whipple procedure with proximal ill-defined soft tissue mass which severely narrows the main portal vein suspicious for recurrent pancreatic cancer -[facility] recommended transfer for further evaluation. Patient accepted, awaiting bed. -Transfer to [place] when bed is available. Has been accepted (2) Aspiration pneumonia: Code(s): J69.0 - Pneumonitis due to inhalation of food and vomit Status: Acute Assessment and Plan: - patient choked on potassium pill 07/03 - CXR 07/04 with interval development of bilateral perihilar and basilar airspace disease suspicious for pneumonia - recieved IV Unasyn x2 days, transition back to Augmentin - currently on RA - monitor respiratory status - TOWEL STRETCHER recommended regular diet, but recommended MBS either on Sunday or at [place] once transferred (3) UTI (urinary tract infection): Code(s): N39.0 - Urinary tract infection, site not specified Status: Acute Assessment and Plan: - urine culture with Klebsiella pneumoniae, sensitive to Augmentin - resume Augmentin (4) Calculus of right ureter: Code(s): N20.1 - Calculus of ureter Status: Acute Assessment and Plan: - s/p ureteral stent placement 06/30 -Kidney stone will be dealt with at a later date - Cr stable (5) BPH (benign prostatic hyperplasia): Code(s): N40.0 - Benign prostatic hyperplasia without lower urinary tract symptoms Status: Acute Assessment and Plan: - continue Flomax and Proscar (6) Diarrhea: Qualifiers: Diarrhea type: unspecified type Qualified Code(s): R19.7 - Diarrhea, unspecified Code(s): R19.7 - Diarrhea, unspecified Status: Acute Assessment and Plan: - CT noted concerns for colitis, but diarrhea resolved (7) Anxiety: Code(s): F41.9 - Anxiety disorder, unspecified Status: Acute Assessment and Plan: - continue home duloxetine, clonazepam Plan Disposition: Await transfer to [facility] Date/time seen: 07/05/25 12:22 Interval history: Patient seen and examined at bedside. Has some mild SOB after suspected aspiration yesterday afternoon. Denies further acute complaints. Eager to transfer. Checked on status, patient is regular priority, still on transfer list. Review of Systems Review of Systems: All systems reviewed & are unremarkable except as noted in HPI and below Exam Narrative: General: NAD, frail Eyes: EOMI ENT: neck supple Cardiovascular: Regular rate and rhythm Respiratory: CTA bilaterally, respirations even and unlabored on RA Gastrointestinal: Soft, non tender Genitourinary: no suprapubic tenderness Musculoskeletal: No edema Skin: warm, dry Neuro: Alert. Psych: Mood appropriate Objective Data Vital Signs Vital Signs: Vital Signs - 24 hr 07/04/25 14:00 07/04/25 15:17 07/04/25 15:24 Temperature 97.2 F L Pulse Rate 94 85 85 Respiratory Rate 18 18 18 Blood Pressure 124/71 Pulse Oximetry 97 Oxygen Delivery Fraction of Inspired Oxygen 07/04/25 20:00 07/04/25 20:59 07/04/25 21:01 Temperature Pulse Rate 85 83 Respiratory Rate 20 20 Blood Pressure Pulse Oximetry 95 Oxygen Delivery Room Air Room Air Fraction of Inspired Oxygen 07/04/25 22:00 07/05/25 01:50 07/05/25 01:59 Temperature 97.2 F L Pulse Rate 92 71 75 Respiratory Rate 18 20 20 Blood Pressure 128/67 Pulse Oximetry 98 Oxygen Delivery Fraction of Inspired Oxygen 07/05/25 06:00 07/05/25 07:14 07/05/25 07:15 Temperature 97.0 F L Pulse Rate 82 80 80 Respiratory Rate 18 20 20 Blood Pressure 124/69 Pulse Oximetry 98 92 Oxygen Delivery Room Air Fraction of Inspired Oxygen 07/05/25 08:40 Temperature Pulse Rate Respiratory Rate Blood Pressure Pulse Oximetry Oxygen Delivery Room Air Fraction of Inspired Oxygen Intake/Output Intake/Output: Intake & Output 07/02/25 07/03/25 07/04/25 07/05/25 23:59 23:59 23:59 23:59 Intake Total 4376.3 2547.5 2270 440 Output Total 1125 1900 1725 800 Balance 3251.3 647.5 545 -360 Meds/Results Medications: Active Medications Generic Name Dose Route Start Last Admin Trade Name Freq PRN Reason Stop Dose Admin Acetaminophen 650 mg 06/30/25 14:11 Acetaminophen 325 Mg Tablet PO Q4H PRN Mild Pain (1-3) or Fever Hydrocodone Bitart/Acetaminophen 1 tab 06/30/25 14:11 07/05/25 06:40 Hydrocodone/Acetaminophen (*Crx) 5-325 Mg Tablet PO 1 tab Q4H PRN Administration Moderate Pain (4-6) Albuterol/Ipratropium 3 ml 07/03/25 20:00 07/05/25 07:08 Ipratropium 0.5 Mg/Albuterol Sulfate 2.5 Mg Ampul.Neb 3 Ml INHALATION 3 ml Q6HRT KEYUR Administration Amoxicillin/Clavulanate Potassium 1 tablet 07/05/25 21:00 Amoxicillin/Clavulanate K 875-125 Mg Tab PO Q12HR KEYUR Clonazepam 0.5 mg 06/30/25 21:00 07/04/25 21:16 Clonazepam (*Crx) 0.5 Mg Tablet PO 0.5 mg HS KEYUR Administration Duloxetine HCl 60 mg 06/30/25 14:00 07/05/25 08:44 Duloxetine Hcl 60 Mg Capsule.Dr PO 60 mg DAILY@0800 KEYUR Administration Finasteride 5 mg 06/30/25 14:00 07/05/25 08:44 Finasteride 5 Mg Tablet PO 5 mg DAILY@0800 KEYUR Administration Guaifenesin/Dextromethorphan 10 ml 07/03/25 17:24 07/03/25 18:35 Guaifenesin/Dextromethorphan 10 Ml Udc PO 10 ml Q4H PRN Administration Cough Morphine Sulfate 2 mg 06/30/25 09:16 07/05/25 10:04 Morphine Sulfate (*Crx) 2 Mg/Ml Inj IV PUSH 2 mg Q2H PRN Administration Pain Rated 7-10 Ondansetron HCl 4 mg 06/29/25 09:51 Ondansetron Inj 4 Mg/2 Ml Vial IV PUSH Q4H PRN Nausea Polyethylene Glycol 17 gm 07/02/25 17:20 07/04/25 08:28 Polyethylene Glycol 3350 17 Gm Powd.Pack PO 17 gm DAILY PRN Administration Constipation Tamsulosin HCl 0.4 mg 06/30/25 21:00 07/04/25 21:16 Tamsulosin Hcl 0.4 Mg Capsule PO 0.4 mg HS KEYUR Administration Trazodone HCl 150 mg 06/29/25 18:50 06/29/25 19:48 Trazodone Hcl 50 Mg Tablet PO 150 mg HS PRN Administration Insomnia Trazodone HCl 150 mg 06/30/25 21:00 07/04/25 21:14 Trazodone Hcl 50 Mg Tablet PO 150 mg HS KEYUR Administration Radiology Results: ITS Impressions Abdomen/Pelvis CT 06/28/25 19:37 IMPRESSION: 1. Postoperative change of prior Whipple procedure with proximal 24 cm ill- defined soft tissue mass at the region of the resected head of the pancreas which severely narrows the main portal vein suspicious for recurrent pancreatic cancer. 2. Obstructing stones in the mid and distal right ureter with mild right hydronephrosis. 3. Shrunken nodular cirrhotic liver. 4. Diffuse colonic wall thickening, severe in the proximal colon. Differential would include colitis either infectious, inflammatory or ischemic in etiology or edema secondary to liver disease or portal venous hypertension. 5. Small to moderate-sized bilateral pleural effusions, diffuse mild mesenteric and body wall edema and small amount of ascites. Abdomen X-Ray 06/30/25 09:13 IMPRESSION: 1. Unchanged stones in the mid and distal right ureter. 2. Persistent pneumobilia. Retrograde Pyelogram 06/30/25 16:09 IMPRESSION: 1. Right internal ureteral stent placement. Please refer to real-time procedural findings for details. Chest X-Ray 07/03/25 17:18 Impression: 1: Interval development of bilateral perihilar and basilar airspace disease, suspicious for pneumonia. Quality VTE Prophylaxis VTE prophylaxis: mechanical ordered
[2025-07-05] MEDS: clonazePAM (*CRX) 0.5 MG TABLET PO (20:19)
[2025-07-05] MEDS: TAMSULOSIN HCL 0.4 MG CAPSULE PO (20:20)
[2025-07-06] VITALS (8 sets, daily range): BP systolic 127–150; BP diastolic 65–86; PULSE 80–89; RESP 16–20; TEMP 36.4–36.8; O2SAT 91–97
[2025-07-06] MEDS: IPRATROPIUM 0.5 MG/ALBUTEROL SULFATE 2.5 MG AMPUL.NEB 3 ML INHALATION ×2 (02:16→07:32)
[2025-07-06] MEDS: MORPHINE SULFATE (*CRX) 2 MG/ML INJ IV PUSH ×3 (05:16→19:31)
[2025-07-06] MEDS: FINASTERIDE 5 MG TABLET PO (08:30)
[2025-07-06] MEDS: DULoxetine HCL 60 MG CAPSULE.DR PO (08:30)
--- NOTE | 2025-07-06 10:37 | PCSTNOTE ---
Please refer to the Modified Barium Swallow Evaluation in the EMR. The patient is a 75 year old male who reports difficulty with pills on occasion and meats. He had a BSE over the weekend that did not reveal CSA. A MBS was ordered to r/o aspiration risk. The patient was positioned in a lateral view and provided the following consistencies.: 5cc/tsp thin liquid barium, cup trials thin liquid barium, cup trials mildly thick liquid barium , pudding mixed with barium paste, and cracker coated with barium paste. Oral Stage: Timely oral preparation and transit for all consistencies presented. Pharyngeal stage: When presented 5cc/ thin liquid barium swallow initiation was timely without viewed aspiration or penetration. When presented cup trials of thin liquid trace laryngeal penetration was viewed during the swallow secondary to reduced laryngeal elevation. The material was viewed to enter the airway remain above the vocal folds and was ejected with the swallow. Penetration appeared eliminated with small controlled drinks. Chin tuck use was not beneficial as it increased penetration size. Mildly thick liquid was attempted but indicated the same risk of laryngeal penetration if bolus size was not controlled. In addition, the patient was viewed to have mild residual in the valleculae for cup drinks thin, mildly thick liquids, pudding, and cracker due to reduced lingual pressure and reduced epiglottic inversion. 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 The patient eliminated a significant amount of residual in the valleculae and pyriform sinus with use of a repeat effortful swallow following the initial swallow. Recommend: 1. Regular Diet 2. Thin liquid 3. Upright with meals 4. Small controlled drink size 5. Repeat swallow all bites and drinks 6. No straw 7. Frequent Observation 8. Speech Services for dysphagia to address Sandra, Laryngeal elevation, Effortful swallow, tongue base retraction.
--- NOTE | 2025-07-06 12:01 | P.PNIM_ITS ---
Progress Note: A&P Assessment and Plan (1) Pancreatic mass: Code(s): K86.89 - Other specified diseases of pancreas Status: Acute Assessment and Plan: - admit CT A/P showed postoperative change of prior Whipple procedure with proximal ill-defined soft tissue mass which severely narrows the main portal vein suspicious for recurrent pancreatic cancer -[facility] recommended transfer for further evaluation. Patient accepted, awaiting bed. (2) Aspiration pneumonia: Code(s): J69.0 - Pneumonitis due to inhalation of food and vomit Status: Acute Assessment and Plan: - patient choked on potassium pill 07/03 - CXR 07/04 with interval development of bilateral perihilar and basilar airspace disease suspicious for pneumonia - received IV Unasyn x2 days, transition back to Augmentin - currently on RA - monitor respiratory status - [employer] recommended regular diet, but recommended MBS (3) UTI (urinary tract infection): Code(s): N39.0 - Urinary tract infection, site not specified Status: Acute Assessment and Plan: - urine culture with Klebsiella pneumoniae, sensitive to Augmentin - resume Augmentin (4) Calculus of right ureter: Code(s): N20.1 - Calculus of ureter Status: Acute Assessment and Plan: - s/p ureteral stent placement 06/30 -Kidney stone will be dealt with at a later date - Cr stable (5) BPH (benign prostatic hyperplasia): Code(s): N40.0 - Benign prostatic hyperplasia without lower urinary tract symptoms Status: Acute Assessment and Plan: - continue Flomax and Proscar (6) Diarrhea: Qualifiers: Diarrhea type: unspecified type Qualified Code(s): R19.7 - Diarrhea, unspecified Code(s): R19.7 - Diarrhea, unspecified Status: Acute Assessment and Plan: - CT noted concerns for colitis, but diarrhea resolved (7) Anxiety: Code(s): F41.9 - Anxiety disorder, unspecified Status: Acute Assessment and Plan: - continue home duloxetine, clonazepam Plan Disposition: Await transfer to [place] Subjective Date/time seen: 07/06/25 12:01 Interval history: Patient seen and examined at bedside. Has some mild SOB after suspected aspiration yesterday afternoon. Having some intermittent lower abdominal cramping. Review of Systems Review of Systems: 12 systems were reviewed and are negativ e except for as per HPI. Exam Narrative: General: NAD, frail Eyes: EOMI ENT: neck supple Cardiovascular: Regular rate and rhythm Respiratory: CTA bilaterally, respirations even and unlabored on RA Gastrointestinal: mild distention, non tender, bowel sounds active Genitourinary: no suprapubic tenderness Musculoskeletal: No edema Skin: warm, dry Neuro: Alert. Psych: Mood appropriate Objective Data Vital Signs Vital Signs: Vital Signs - 24 hr 07/05/25 14:00 07/05/25 14:02 07/05/25 20:00 Temperature 97.7 F Pulse Rate 95 78 Respiratory Rate 18 20 Blood Pressure 122/69 Pulse Oximetry 99 Oxygen Delivery Room Air Fraction of Inspired Oxygen 07/05/25 20:06 07/05/25 21:04 07/05/25 21:10 Temperature 97 F L Pulse Rate 88 89 Respiratory Rate 16 16 Blood Pressure 138/82 Pulse Oximetry 97 95 Oxygen Delivery Room Air Fraction of Inspired Oxygen 21 07/05/25 21:14 07/06/25 02:17 07/06/25 02:25 Temperature Pulse Rate 89 82 80 Respiratory Rate 16 18 18 Blood Pressure Pulse Oximetry Oxygen Delivery Fraction of Inspired Oxygen 07/06/25 05:02 07/06/25 07:33 07/06/25 07:33 Temperature 97.8 F Pulse Rate 86 84 84 Respiratory Rate 16 20 20 Blood Pressure 127/65 Pulse Oximetry 96 92 Oxygen Delivery Room Air Fraction of Inspired Oxygen 07/06/25 07:42 07/06/25 08:30 Temperature Pulse Rate 84 Respiratory Rate 20 Blood Pressure Pulse Oximetry Oxygen Delivery Room Air Fraction of Inspired Oxygen Intake/Output Intake/Output: Intake & Output 07/03/25 07/04/25 07/05/25 07/06/25 23:59 23:59 23:59 23:59 Intake Total 2547.5 2270 1160 240 Output Total 1900 1725 1400 325 Balance 647.5 545 -240 -85 Meds/Results Medications: Active Medications Generic Name Dose Route Start Last Admin Trade Name Freq PRN Reason Stop Dose Admin Acetaminophen 650 mg 06/30/25 14:11 Acetaminophen 325 Mg Tablet PO Q4H PRN Mild Pain (1-3) or Fever Hydrocodone Bitart/Acetaminophen 1 tab 06/30/25 14:11 07/05/25 20:20 Hydrocodone/Acetaminophen (*Crx) 5-325 Mg Tablet PO 1 tab Q4H PRN Administration Moderate Pain (4-6) Albuterol/Ipratropium 3 ml 07/06/25 08:26 Ipratropium 0.5 Mg/Albuterol Sulfate 2.5 Mg Ampul.Neb 3 Ml INHALATION Q6HRT PRN Shortness Of Breath Amoxicillin/Clavulanate Potassium 1 tablet 07/05/25 21:00 07/06/25 08:30 Amoxicillin/Clavulanate K 875-125 Mg Tab PO 1 tablet Q12HR KEYUR Administration Clonazepam 0.5 mg 06/30/25 21:00 07/05/25 20:19 Clonazepam (*Crx) 0.5 Mg Tablet PO 0.5 mg HS KEYUR Administration Duloxetine HCl 60 mg 06/30/25 14:00 07/06/25 08:30 Duloxetine Hcl 60 Mg Capsule.Dr PO 60 mg DAILY@0800 KEYUR Administration Finasteride 5 mg 06/30/25 14:00 07/06/25 08:30 Finasteride 5 Mg Tablet PO 5 mg DAILY@0800 KEYUR Administration Guaifenesin/Dextromethorphan 10 ml 07/03/25 17:24 07/03/25 18:35 Guaifenesin/Dextromethorphan 10 Ml Udc PO 10 ml Q4H PRN Administration Cough Morphine Sulfate 2 mg 06/30/25 09:16 07/06/25 08:53 Morphine Sulfate (*Crx) 2 Mg/Ml Inj IV PUSH 2 mg Q2H PRN Administration Pain Rated 7-10 Ondansetron HCl 4 mg 06/29/25 09:51 Ondansetron Inj 4 Mg/2 Ml Vial IV PUSH Q4H PRN Nausea Polyethylene Glycol 17 gm 07/02/25 17:20 07/04/25 08:28 Polyethylene Glycol 3350 17 Gm Powd.Pack PO 17 gm DAILY PRN Administration Constipation Tamsulosin HCl 0.4 mg 06/30/25 21:00 07/05/25 20:20 Tamsulosin Hcl 0.4 Mg Capsule PO 0.4 mg HS KEYUR Administration Trazodone HCl 150 mg 06/30/25 21:00 07/05/25 20:19 Trazodone Hcl 50 Mg Tablet PO 150 mg HS KEYUR Administration Radiology Results: ITS Impressions Abdomen/Pelvis CT 06/28/25 19:37 IMPRESSION: 1. Postoperative change of prior Whipple procedure with proximal 24 cm ill- defined soft tissue mass at the region of the resected head of the pancreas which severely narrows the main portal vein suspicious for recurrent pancreatic cancer. 2. Obstructing stones in the mid and distal right ureter with mild right hydronephrosis. 3. Shrunken nodular cirrhotic liver. 4. Diffuse colonic wall thickening, severe in the proximal colon. Differential would include colitis either infectious, inflammatory or ischemic in etiology or edema secondary to liver disease or portal venous hypertension. 5. Small to moderate-sized bilateral pleural effusions, diffuse mild mesenteric and body wall edema and small amount of ascites. Retrograde Pyelogram 06/30/25 16:09 IMPRESSION: 1. Right internal ureteral stent placement. Please refer to real-time procedural findings for details. Chest X-Ray 07/03/25 17:18 Impression: 1: Interval development of bilateral perihilar and basilar airspace disease, suspicious for pneumonia. Modified Barium Swallow 07/06/25 10:45 IMPRESSION: Fragile dysphagia laryngeal penetration without aspiration. Please correlate with speech pathologist findings and specific feeding recommendations. Quality VTE Prophylaxis VTE prophylaxis: mechanical ordered
[2025-07-06] MEDS: TAMSULOSIN HCL 0.4 MG CAPSULE PO (20:14)
[2025-07-06] MEDS: clonazePAM (*CRX) 0.5 MG TABLET PO (20:14)
[2025-07-06] MEDS: HYDROcodone/acetaminophen (*CRX) 5-325 MG TABLET 1 TAB PO (21:15)
[2025-07-07] MEDS: MORPHINE SULFATE (*CRX) 2 MG/ML INJ IV PUSH ×2 (03:00→06:07)
[2025-07-07 05:10] VITALS: BP 119/72; PULSE 82; RESP 12; TEMP 36.5; O2SAT 97
[2025-07-07] MEDS: FINASTERIDE 5 MG TABLET PO (08:56)
[2025-07-07] MEDS: DULoxetine HCL 60 MG CAPSULE.DR PO (08:56)
[2025-07-07 10:29] VITALS: PULSE 85; RESP 20; O2SAT 93
--- NOTE | 2025-07-07 10:49 | PCNFU ---
Nutrition Follow-Up Complete: Severe Protein Calorie Malnutrition as related to inadequate protein energy intake in setting of chronic disease (cancer) as evidenced by minimal oral intake for > 1-2 months; weight loss noted of 8 ibs in 1 week; moderate subcutaneous fat loss (orbital fat pads) and moderate muscle wasting (temporalis). Goal: Meet estimated nutritional needs Patient is progressing towards goal. We will continue current goal. Pt current nutrition is Regular with diet supplements. Last recorded weight is 72 kg, no new weight to report. Recommend reweigh. Bowel Motility: Last reported BM 07/06 Labs Reviewed: Cr 0.46, Na 136, Hct 38.4, Hgb 12.2 Meds Noted: Cymbalta Skin:WNL Additional Notes: Patient is tolerating regular diet. Diet supplements providing BID for additional 240 kcal and 8 gm protein. Agree with diet orders. Will monitor weight, labs, skin, diet orders, meds every 5 days.
[2025-07-07 12:51] VITALS: O2SAT 99
--- NOTE | 2025-07-07 13:57 | P.PNIM_ITS ---
Progress Note: A&P Assessment and Plan (1) Pancreatic mass: Code(s): K86.89 - Other specified diseases of pancreas Status: Acute Assessment and Plan: - admit CT A/P showed postoperative change of prior Whipple procedure with proximal ill-defined soft tissue mass which severely narrows the main portal vein suspicious for recurrent pancreatic cancer -[facility] recommended transfer for further evaluation. Patient accepted, awaiting bed. - patient having intermittent abdominal pain. Mild distention. May consider repeat CT abdomen/pelvis if abdominal pain worsening. (2) Aspiration pneumonia: Code(s): J69.0 - Pneumonitis due to inhalation of food and vomit Status: Acute Assessment and Plan: - patient choked on potassium pill 07/03 - CXR 07/04 with interval development of bilateral perihilar and basilar airspace disease suspicious for pneumonia - received IV Unasyn x2 days, transitioned back to Augmentin - currently on RA - monitor respiratory status - s/p MBS 07/06 - [facility] recommended regular diet, aspiration precautions (3) UTI (urinary tract infection): Code(s): N39.0 - Urinary tract infection, site not specified Status: Acute Assessment and Plan: - urine culture with Klebsiella pneumoniae, sensitive to Augmentin - resume Augmentin (4) Calculus of right ureter: Code(s): N20.1 - Calculus of ureter Status: Acute Assessment and Plan: - s/p ureteral stent placement 06/30 -Kidney stone will be dealt with at a later date - Cr stable (5) BPH (benign prostatic hyperplasia): Code(s): N40.0 - Benign prostatic hyperplasia without lower urinary tract symptoms Status: Acute Assessment and Plan: - continue Flomax and Proscar (6) Diarrhea: Qualifiers: Diarrhea type: unspecified type Qualified Code(s): R19.7 - Diarrhea, unspecified Code(s): R19.7 - Diarrhea, unspecified Status: Acute Assessment and Plan: - CT noted concerns for colitis, but diarrhea resolved (7) Anxiety: Code(s): F41.9 - Anxiety disorder, unspecified Status: Acute Assessment and Plan: - continue home duloxetine, clonazepam Plan Disposition: Await transfer to [place] DVT prophylaxis: Lovenox Subjective Date/time seen: 07/07/25 13:57 Interval history: Patient seen and examined at bedside. Still having some intermittent lower abdominal cramping. Anxious to transfer. Review of Systems Review of Systems: 12 systems were reviewed and are negativ e except for as per HPI. All systems reviewed & are unremarkable except as noted in HPI and below Exam Narrative: General: NAD, frail Eyes: EOMI ENT: neck supple Cardiovascular: Regular rate and rhythm Respiratory: CTA bilaterally, respirations even and unlabored on RA Gastrointestinal: mild distention, non tender, bowel sounds active Genitourinary: no suprapubic tenderness Musculoskeletal: No edema Skin: warm, dry Neuro: Alert. Psych: Mood appropriate Objective Data Vital Signs Vital Signs: Vital Signs - 24 hr 07/06/25 14:00 07/06/25 20:00 07/06/25 20:16 Temperature 97.5 F L Pulse Rate 86 86 Respiratory Rate 16 20 Blood Pressure 132/74 Pulse Oximetry 97 91 Oxygen Delivery Room Air Room Air Fraction of Inspired Oxygen 21 07/06/25 20:39 07/07/25 05:10 07/07/25 08:00 Temperature 98.3 F 97.7 F Pulse Rate 89 82 Respiratory Rate 18 12 Blood Pressure 150/86 H 119/72 Pulse Oximetry 96 97 Oxygen Delivery Room Air Fraction of Inspired Oxygen 07/07/25 10:29 07/07/25 12:51 Temperature Pulse Rate 85 Respiratory Rate 20 Blood Pressure Pulse Oximetry 93 99 Oxygen Delivery Room Air Fraction of Inspired Oxygen Intake/Output Intake/Output: Intake & Output 07/04/25 07/05/25 07/06/25 07/07/25 23:59 23:59 23:59 23:59 Intake Total 2270 1160 830 600 Output Total 1725 1400 575 650 Balance 545 -240 255 -50 Meds/Results Medications: Active Medications Generic Name Dose Route Start Last Admin Trade Name Freq PRN Reason Stop Dose Admin Acetaminophen 650 mg 06/30/25 14:11 Acetaminophen 325 Mg Tablet PO Q4H PRN Mild Pain (1-3) or Fever Hydrocodone Bitart/Acetaminophen 1 tab 06/30/25 14:11 07/06/25 21:15 Hydrocodone/Acetaminophen (*Crx) 5-325 Mg Tablet PO 1 tab Q4H PRN Administration Moderate Pain (4-6) Albuterol/Ipratropium 3 ml 07/06/25 08:26 Ipratropium 0.5 Mg/Albuterol Sulfate 2.5 Mg Ampul.Neb 3 Ml INHALATION Q6HRT PRN Shortness Of Breath Amoxicillin/Clavulanate Potassium 1 tablet 07/05/25 21:00 07/07/25 08:56 Amoxicillin/Clavulanate K 875-125 Mg Tab PO 1 tablet Q12HR KEYUR Administration Clonazepam 0.5 mg 06/30/25 21:00 07/06/25 20:14 Clonazepam (*Crx) 0.5 Mg Tablet PO 0.5 mg HS KEYUR Administration Duloxetine HCl 60 mg 06/30/25 14:00 07/07/25 08:56 Duloxetine Hcl 60 Mg Capsule.Dr PO 60 mg DAILY@0800 KEYUR Administration Finasteride 5 mg 06/30/25 14:00 07/07/25 08:56 Finasteride 5 Mg Tablet PO 5 mg DAILY@0800 KEYUR Administration Guaifenesin/Dextromethorphan 10 ml 07/03/25 17:24 07/03/25 18:35 Guaifenesin/Dextromethorphan 10 Ml Udc PO 10 ml Q4H PRN Administration Cough Morphine Sulfate 2 mg 06/30/25 09:16 07/07/25 06:07 Morphine Sulfate (*Crx) 2 Mg/Ml Inj IV PUSH 2 mg Q2H PRN Administration Pain Rated 7-10 Ondansetron HCl 4 mg 06/29/25 09:51 Ondansetron Inj 4 Mg/2 Ml Vial IV PUSH Q4H PRN Nausea Polyethylene Glycol 17 gm 07/02/25 17:20 07/04/25 08:28 Polyethylene Glycol 3350 17 Gm Powd.Pack PO 17 gm DAILY PRN Administration Constipation Tamsulosin HCl 0.4 mg 06/30/25 21:00 07/06/25 20:14 Tamsulosin Hcl 0.4 Mg Capsule PO 0.4 mg HS KEYUR Administration Trazodone HCl 150 mg 06/30/25 21:00 07/06/25 20:14 Trazodone Hcl 50 Mg Tablet PO 150 mg HS KEYUR Administration Radiology Results: ITS Impressions Abdomen/Pelvis CT 06/28/25 19:37 IMPRESSION: 1. Postoperative change of prior Whipple procedure with proximal 24 cm ill- defined soft tissue mass at the region of the resected head of the pancreas which severely narrows the main portal vein suspicious for recurrent pancreatic cancer. 2. Obstructing stones in the mid and distal right ureter with mild right hy dronephrosis. 3. Shrunken nodular cirrhotic liver. 4. Diffuse colonic wall thickening, severe in the proximal colon. Differential would include colitis either infectious, inflammatory or ischemic in etiology or edema secondary to liver disease or portal venous hypertension. 5. Small to moderate-sized bilateral pleural effusions, diffuse mild mesenteric and body wall edema and small amount of ascites. Retrograde Pyelogram 06/30/25 16:09 IMPRESSION: 1. Right internal ureteral stent placement. Please refer to real-time procedural findings for details. Chest X-Ray 07/03/25 17:18 Impression: 1: Interval development of bilateral perihilar and basilar airspace disease, suspicious for pneumonia. Modified Barium Swallow 07/06/25 10:45 IMPRESSION: Fragile dysphagia laryngeal penetration without aspiration. Please correlate with speech pathologist findings and specific feeding recommendations. Abdomen X-Ray 07/06/25 13:17 Impression: 1: No acute abdominal abnormality. Quality VTE Prophylaxis VTE prophylaxis: pharmacologic ordered
[2025-07-07 15:05] VITALS: BP 115/62; PULSE 84; RESP 16; TEMP 36.6; O2SAT 98
[2025-07-07] MEDS: HYDROcodone/acetaminophen (*CRX) 5-325 MG TABLET 1 TAB PO (16:34)
[2025-07-07 19:57] VITALS: BP 117/66; PULSE 85; RESP 18; TEMP 36.7; O2SAT 96
[2025-07-07] MEDS: TAMSULOSIN HCL 0.4 MG CAPSULE PO (20:38)
[2025-07-07] MEDS: clonazePAM (*CRX) 0.5 MG TABLET PO (20:38)
[2025-07-08 04:39] VITALS: BP 114/72; PULSE 81; RESP 16; TEMP 36.6; O2SAT 96
[2025-07-08] MEDS: MORPHINE SULFATE (*CRX) 2 MG/ML INJ IV PUSH (05:13)
[2025-07-08] MEDS: DULoxetine HCL 60 MG CAPSULE.DR PO (08:59)
[2025-07-08] MEDS: FINASTERIDE 5 MG TABLET PO (08:59)
[2025-07-08] MEDS: HYDROcodone/acetaminophen (*CRX) 5-325 MG TABLET 1 TAB PO (11:22)
[2025-07-08 12:59] LABS: Hematocrit 39.2 % (42.0-52.0); Hemoglobin 12.6 g/dL (14.0-18.0); Mean Corpuscular HGB Conc 32.1 g/dl (32-36); Mean Corpuscular Hemoglobin 27.5 pg (26-34); Mean Corpuscular Volume 85.6 fl (80-100); Platelet Count Result 168 k/mm3 (150-375); Red Blood Count 4.58 M/mm3 (4.6-6.20); White Blood Count 7.5 K/mm3 (4.5-10.0)
[2025-07-08 13:21] LABS: Anion Gap 6 mmol/L (4-12); Blood Urea Nitrogen 16 mg/dL (9-20); Calcium 8.2 mg/dL (8.4-10.2); Carbon Dioxide 28 mmol/L (22-30); Chloride 102 mmol/L (98-107); Estimated CRCL calculation 96 ml/min; Estimated Glomerular Filt Rate > 60; Glucose 100 mg/dL (65-110); Magnesium 2.0 mg/dL (1.6-2.3); Potassium 3.0 mmol/L (3.4-5.0); Sodium 136 mmol/L (137-145)
[2025-07-08 14:00] VITALS: BP 117/88; PULSE 85; RESP 19; TEMP 36.4; O2SAT 97
--- NOTE | 2025-07-08 15:59 | P.PNIM_ITS ---
Progress Note: A&P Assessment and Plan (1) Pancreatic mass: Code(s): K86.89 - Other specified diseases of pancreas Status: Acute Assessment and Plan: - admit CT A/P showed postoperative change of prior Whipple procedure with proximal ill-defined soft tissue mass which severely narrows the main portal vein suspicious for recurrent pancreatic cancer -[facility] recommended transfer for further evaluation. Patient accepted, awaiting bed. -abdominal pain improving. Mild distention. May consider repeat CT abdomen/pelvis if abdominal pain worsening. (2) Aspiration pneumonia: Code(s): J69.0 - Pneumonitis due to inhalation of food and vomit Status: Acute Assessment and Plan: - patient choked on potassium pill 07/03, again on 07/08/2025 - CXR 07/04 with interval development of bilateral perihilar and basilar airspace disease suspicious for pneumonia - received IV Unasyn x2 days, transitioned back to Augmentin and completed 9 days. - currently on RA - monitor respiratory status - s/p MBS 07/06 - [facility] recommended regular diet, aspiration precautions (3) UTI (urinary tract infection): Code(s): N39.0 - Urinary tract infection, site not specified Status: Acute Assessment and Plan: - urine culture with Klebsiella pneumoniae, sensitive to Augmentin - Augmentin completed after 9 days. (4) Calculus of right ureter: Code(s): N20.1 - Calculus of ureter Status: Acute Assessment and Plan: - s/p ureteral stent placement 06/30 - Urology advised follow-up in 1-2 weeks for stent removal - Cr stable (5) BPH (benign prostatic hyperplasia): Code(s): N40.0 - Benign prostatic hyperplasia without lower urinary tract symptoms Status: Acute Assessment and Plan: - continue Flomax and Proscar (6) Diarrhea: Qualifiers: Diarrhea type: unspecified type Qualified Code(s): R19.7 - Diarrhea, unspecified Code(s): R19.7 - Diarrhea, unspecified Status: Acute Assessment and Plan: - CT noted concerns for colitis, but diarrhea resolved (7) Anxiety: Code(s): F41.9 - Anxiety disorder, unspecified Status: Acute Assessment and Plan: - continue home duloxetine, clonazepam (8) Leg swelling: Code(s): M79.89 - Other specified soft tissue disorders Status: Acute Assessment and Plan: Developed since admission. Patient reports he has not been walking at all. He is also net positive 10 L. will give Lasix 20 mg IV x1. Daily weights. Intake/output. Enter order for patient to walk in [place] 3 times per day. Start thigh-high Ming hose. (9) Hypokalemia: Code(s): E87.6 - Hypokalemia Status: Acute Assessment and Plan: 3.0 on 07/08/2025. Replace with KCl 40 mEq tab. Magnesium acceptable. Recheck. Plan Disposition: Await transfer to [place] DVT prophylaxis: Lovenox Saline lock IV. Walk in [place] 3 times daily. Thigh-high Ming hose stockings. Patient wishes to be full code. Subjective Date/time seen: 07/08/25 15:59 Interval history: Patient seen and examined at bedside. He denies any shortness of breath, cough, chest pain, nausea or vomiting. It choked on a pill earlier today but now he is eating lunch without any issue. He reports his abdomen is distended but stable. He has some swelling in his legs. Review of Systems Review of Systems: All systems reviewed & are unremarkable except as noted in HPI and below (Subjective) Exam Const: General: comfortable and no acute distress Other: A&O x3 HENMT: Mouth: Yes moist mucous membranes Eyes: Pupils: Equal, round and reactive pupils present Neck: Neck: supple Resp: Effort & Inspection: normal respiratory effort Auscultation: clear to auscultation bilaterally Cardio: Rate: regular rate Rhythm: regular rhythm GI: Inspection: distended GI Palp: Yes Firmness to palpation present (GI) and No Tenderness to palpation present (GI) Auscultation: normal bowel sounds Other: Hypertympanic Neuro: Motor exam (neuro): 5/5 motor strength present throughout Extrem: Other: 1+ pitting edema bilateral lower extremi ties below the knees Objective Data Vital Signs Vital Signs: Vital Signs - 24 hr 07/07/25 19:57 07/07/25 20:00 07/08/25 04:39 Temperature 98.1 F 97.9 F Pulse Rate 85 81 Respiratory Rate 18 16 Blood Pressure 117/66 114/72 Pulse Oximetry 96 96 Oxygen Delivery Room Air 07/08/25 08:00 07/08/25 14:00 Temperature 97.6 F Pulse Rate 85 Respiratory Rate 19 Blood Pressure 117/88 Pulse Oximetry 97 Oxygen Delivery Room Air Intake/Output Intake/Output: Intake & Output 07/05/25 07/06/25 07/07/25 07/08/25 23:59 23:59 23:59 23:59 Intake Total 3738 098 4697 500 Output Total 6031 351 7068 100 Balance -240 255 305 400 Meds/Results Medications: Active Medications Generic Name Dose Route Start Last Admin Trade Name Freq PRN Reason Stop Dose Admin Acetaminophen 650 mg 06/30/25 14:11 Acetaminophen 325 Mg Tablet PO Q4H PRN Mild Pain (1-3) or Fever Hydrocodone Bitart/Acetaminophen 1 tab 06/30/25 14:11 07/08/25 11:22 Hydrocodone/Acetaminophen (*Crx) 5-325 Mg Tablet PO 1 tab Q4H PRN Administration Moderate Pain (4-6) Albuterol/Ipratropium 3 ml 07/06/25 08:26 Ipratropium 0.5 Mg/Albuterol Sulfate 2.5 Mg Ampul.Neb 3 Ml INHALATION Q6HRT PRN Shortness Of Breath Clonazepam 0.5 mg 06/30/25 21:00 07/07/25 20:38 Clonazepam (*Crx) 0.5 Mg Tablet PO 0.5 mg HS KEYUR Administration Duloxetine HCl 60 mg 06/30/25 14:00 07/08/25 08:59 Duloxetine Hcl 60 Mg Capsule.Dr PO 60 mg DAILY@0800 KEYUR Administration Enoxaparin Sodium 40 mg 07/08/25 09:00 Enoxaparin 40 Mg/0.4 Ml Syringe SUB-Q DAILY KEYUR Finasteride 5 mg 06/30/25 14:00 07/08/25 08:59 Finasteride 5 Mg Tablet PO 5 mg DAILY@0800 KEYUR Administration Guaifenesin/Dextromethorphan 10 ml 07/03/25 17:24 07/03/25 18:35 Guaifenesin/Dextromethorphan 10 Ml Udc PO 10 ml Q4H PRN Administration Cough Morphine Sulfate 2 mg 06/30/25 09:16 07/08/25 05:13 Morphine Sulfate (*Crx) 2 Mg/Ml Inj IV PUSH 2 mg Q2H PRN Administration Pain Rated 7-10 Ondansetron HCl 4 mg 06/29/25 09:51 Ondansetron Inj 4 Mg/2 Ml Vial IV PUSH Q4H PRN Nausea Polyethylene Glycol 17 gm 07/02/25 17:20 07/04/25 08:28 Polyethylene Glycol 3350 17 Gm Powd.Pack PO 17 gm DAILY PRN Administration Constipation Tamsulosin HCl 0.4 mg 06/30/25 21:00 07/07/25 20:38 Tamsulosin Hcl 0.4 Mg Capsule PO 0.4 mg HS KEYUR Administration Trazodone HCl 150 mg 06/30/25 21:00 07/07/25 20:38 Trazodone Hcl 50 Mg Tablet PO 150 mg HS KEYUR Administration Radiology Results: ITS Impressions Abdomen/Pelvis CT 06/28/25 19:37 IMPRESSION: 1. Postoperative change of prior Whipple procedure with proximal 24 cm ill- defined soft tissue mass at the region of the resected head of the pancreas which severely narrows the main portal vein suspicious for recurrent pancreatic cancer. 2. Obstructing stones in the mid and distal right ureter with mild right hydronephrosis. 3. Shrunken nodular cirrhotic liver. 4. Diffuse colonic wall thickening, severe in the proximal colon. Differential would include colitis either infectious, inflammatory or ischemic in etiology or edema secondary to liver disease or portal venous hypertension. 5. Small to moderate-sized bilateral pleural effusions, diffuse mild mesenteric and body wall edema and small amount of ascites. Retrograde Pyelogram 06/30/25 16:09 IMPRESSION: 1. Right internal ureteral stent placement. Please refer to real-time procedural findings for details. Chest X-Ray 07/03/25 17:18 Impression: 1: Interval development of bilateral perihilar and basilar airspace disease, suspicious for pneumonia. Modified Barium Swallow 07/06/25 10:45 IMPRESSION: Fragile dysphagia laryngeal penetration without aspiration. Please correlate with speech pathologist findings and specific feeding recommendations. Abdomen X-Ray 07/06/25 13:17 Impression: 1: No acute abdominal abnormality. Labs Labs: Laboratory Results - last 24 hr 07/08/25 12:54 WBC 7.5 RBC 4.58 L Hgb 12.6 L Hct 39.2 L MCV 85.6 MCH 27.5 MCHC 32.1 RDW 17.1 H Plt Count 168 MPV 10.1 Sodium 136 L Potassium 3.0 L Chloride 102 Carbon Dioxide 28 Anion Gap 6 BUN 16 Creatinine 0.56 L Estim Creat Clear Calc 96 Estimated GFR > 60 Glucose 100 Calcium 8.2 L Magnesium 2.0 Quality VTE Prophylaxis VTE prophylaxis: pharmacologic ordered
[2025-07-08] MEDS: POTASSIUM CHLORIDE 20 MEQ ER TABLET 40 MEQ PO (17:11)
[2025-07-08] MEDS: FUROSEMIDE INJ 40 MG/4 ML VIAL 20 MG IV PUSH (17:11)
[2025-07-08] MEDS: ENOXAPARIN 40 MG/0.4 ML SYRINGE SUB-Q (17:11)
[2025-07-08 19:39] VITALS: O2SAT 96
[2025-07-08 20:59] VITALS: BP 131/76; PULSE 85; RESP 16; TEMP 36.7; O2SAT 96
[2025-07-08] MEDS: clonazePAM (*CRX) 0.5 MG TABLET PO (21:24)
[2025-07-08] MEDS: TAMSULOSIN HCL 0.4 MG CAPSULE PO (21:24)
[2025-07-09] MEDS: HYDROcodone/acetaminophen (*CRX) 5-325 MG TABLET 1 TAB PO ×5 (00:30→21:01)
--- NOTE | 2025-07-09 01:59 | PC.NURSE ---
2041 [facility] called with update, still no beds available at this time
[2025-07-09 05:16] VITALS: BP 122/73; PULSE 78; RESP 16; TEMP 36.5; O2SAT 96
[2025-07-09 06:29] LABS: Anion Gap 3 mmol/L (4-12); Blood Urea Nitrogen 15 mg/dL (9-20); Calcium 7.7 mg/dL (8.4-10.2); Carbon Dioxide 30 mmol/L (22-30); Chloride 103 mmol/L (98-107); Estimated CRCL calculation 99 ml/min; Estimated Glomerular Filt Rate > 60; Glucose 88 mg/dL (65-110); Magnesium 1.9 mg/dL (1.6-2.3); Potassium 3.1 mmol/L (3.4-5.0); Sodium 136 mmol/L (137-145)
--- NOTE | 2025-07-09 08:39 | P.PNIM_ITS ---
Progress Note: A&P Assessment and Plan (1) Pancreatic mass: Code(s): K86.89 - Other specified diseases of pancreas Status: Acute Assessment and Plan: -admission CT A/P showed postoperative change of prior Whipple procedure with proximal ill-defined soft tissue mass which severely narrows the main portal vein suspicious for recurrent pancreatic cancer -[facility] recommended transfer for further evaluation. Patient accepted, awaiting bed. -abdominal pain improved. Mild distention. May consider repeat CT abdomen/pelvis if abdominal pain worsening. (2) Aspiration pneumonia: Code(s): J69.0 - Pneumonitis due to inhalation of food and vomit Status: Acute Assessment and Plan: - patient choked on potassium pill 07/03, again on 07/08/2025 - CXR 07/04 with interval development of bilateral perihilar and basilar airspace disease suspicious for pneumonia - received IV Unasyn x2 days, transitioned back to Augmentin and completed 9 days. - currently on RA - monitor respiratory status - s/p MBS 07/06 - [facility] recommended regular diet, aspiration precautions (3) UTI (urinary tract infection): Code(s): N39.0 - Urinary tract infection, site not specified Status: Acute Assessment and Plan: - urine culture with Klebsiella pneumoniae, sensitive to Augmentin - Augmentin completed after 9 days. (4) Calculus of right ureter: Code(s): N20.1 - Calculus of ureter Status: Acute Assessment and Plan: - s/p ureteral stent placement 06/30 - Urology advised follow-up in 1-2 weeks for stent removal - Cr stable (5) BPH (benign prostatic hyperplasia): Code(s): N40.0 - Benign prostatic hyperplasia without lower urinary tract symptoms Status: Acute Assessment and Plan: - continue Flomax and Proscar (6) Diarrhea: Qualifiers: Diarrhea type: unspecified type Qualified Code(s): R19.7 - Diarrhea, unspecified Code(s): R19.7 - Diarrhea, unspecified Status: Acute Assessment and Plan: - CT noted concerns for colitis, but diarrhea resolved (7) Anxiety: Code(s): F41.9 - Anxiety disorder, unspecified Status: Acute Assessment and Plan: - continue home duloxetine, clonazepam (8) Leg swelling: Code(s): M79.89 - Other specified soft tissue disorders Status: Acute Assessment and Plan: noted on 07/08/2025 and administered Lasix 20 mg IV x1 after noting he was fluid net positive 10 L since admission. Lower extremity edema improved to 1+ on 07/09/2025 patient now looks dehydrated. Would not give anymore. Patient reports he has not been walking at all. Daily weights. Intake/output. Enter order for patient to walk in [place] 3 times per day. continue thigh-high Ming floyd. PT/OT evaluation ordered on 07/08/2025 (9) Hypokalemia: Code(s): E87.6 - Hypokalemia Status: Acute Assessment and Plan: 3.0 on 07/08/2025. Replace with KCl 40 mEq tab. Magnesium acceptable. Recheck. 3.1 on 07/09/2025, was also given Lasix the day prior. Lasix discontinued. Give KCl 40 mEq powder instead of tab due to difficulty swallowing. Recheck BMP at noon Plan Disposition: Await transfer to [place]. It has been many days. [facility] is at capacity. Will try somewhere else. DVT prophylaxis: Lovenox 40 mg subQ q.day Saline lock IV. Regular diet with dietary supplements. Walk in [place] 3 times daily. Thigh-high Ming hose stockings. PT OT evaluations. Patient wishes to be full code. Subjective Date/time seen: 07/09/25 08:39 Interval history: No major acute overnight events. Patient rest in bed comfortably, he reports he had abdominal pain this morning but it has resolved. he has an appetite and is ready to eat breakfast. Review of Systems Review of Systems: All systems reviewed & are unremarkable except as noted in HPI and below ( Subjective) Exam Const: General: comfortable and no acute distress Other: A&O x3 HENMT: Mouth: Yes dry mucous membranes Eyes: Pupils: Equal, round and reactive pupils present Neck: Neck: supple Resp: Effort & Inspection: normal respiratory effort Auscultation: clear to auscultation bilaterally Cardio: Rate: regular rate Rhythm: regular rhythm GI: GI Palp: Yes Soft to palpation and No Tenderness to palpation present (GI) Other: Epigastric mass mild distension, improved compared to day prior Neuro: Motor exam (neuro): 5/5 motor strength present throughout Extrem: Other: 1+ pitting edema bilateral lower extremities below the knees, improved. Objective Data Vital Signs Vital Signs: Vital Signs - 24 hr 07/08/25 14:00 07/08/25 19:39 07/08/25 20:59 Temperature 97.6 F 98.1 F Pulse Rate 85 85 Respiratory Rate 19 16 Blood Pressure 117/88 131/76 Pulse Oximetry 97 96 96 Oxygen Delivery Room Air Fraction of Inspired Oxygen 07/09/25 05:16 Temperature 97.7 F Pulse Rate 78 Respiratory Rate 16 Blood Pressure 122/73 Pulse Oximetry 96 Oxygen Delivery Fraction of Inspired Oxygen Intake/Output Intake/Output: Intake & Output 07/06/25 07/07/25 07/08/25 07/09/25 23:59 23:59 23:59 23:59 Intake Total 830 1380 1290 50 Output Total 575 1075 1175 400 Balance 255 305 115 -350 Meds/Results Medications: Active Medications Generic Name Dose Route Start Last Admin Trade Name Freq PRN Reason Stop Dose Admin Acetaminophen 650 mg 06/30/25 14:11 Acetaminophen 325 Mg Tablet PO Q4H PRN Mild Pain (1-3) or Fever Hydrocodone Bitart/Acetaminophen 1 tab 06/30/25 14:11 07/09/25 06:51 Hydrocodone/Acetaminophen (*Crx) 5-325 Mg Tablet PO 1 tab Q4H PRN Administration Moderate Pain (4-6) Albuterol/Ipratropium 3 ml 07/06/25 08:26 Ipratropium 0.5 Mg/Albuterol Sulfate 2.5 Mg Ampul.Neb 3 Ml INHALATION Q6HRT PRN Shortness Of Breath Clonazepam 0.5 mg 06/30/25 21:00 07/08/25 21:24 Clonazepam (*Crx) 0.5 Mg Tablet PO 0.5 mg HS KEYUR Administration Duloxetine HCl 60 mg 06/30/25 14:00 07/08/25 08:59 Duloxetine Hcl 60 Mg Capsule.Dr PO 60 mg DAILY@0800 KEYUR Administration Enoxaparin Sodium 40 mg 07/08/25 09:00 07/08/25 17:11 Enoxaparin 40 Mg/0.4 Ml Syringe SUB-Q 40 mg DAILY KEYUR Administration Finasteride 5 mg 06/30/25 14:00 07/08/25 08:59 Finasteride 5 Mg Tablet PO 5 mg DAILY@0800 KEYUR Administration Guaifenesin/Dextromethorphan 10 ml 07/03/25 17:24 07/03/25 18:35 Guaifenesin/Dextromethorphan 10 Ml Udc PO 10 ml Q4H PRN Administration Cough Morphine Sulfate 2 mg 06/30/25 09:16 07/08/25 05:13 Morphine Sulfate (*Crx) 2 Mg/Ml Inj IV PUSH 2 mg Q2H PRN Administration Pain Rated 7-10 Ondansetron HCl 4 mg 06/29/25 09:51 Ondansetron Inj 4 Mg/2 Ml Vial IV PUSH Q4H PRN Nausea Polyethylene Glycol 17 gm 07/02/25 17:20 07/04/25 08:28 Polyethylene Glycol 3350 17 Gm Powd.Pack PO 17 gm DAILY PRN Administration Constipation Tamsulosin HCl 0.4 mg 06/30/25 21:00 07/08/25 21:24 Tamsulosin Hcl 0.4 Mg Capsule PO 0.4 mg HS KEYUR Administration Trazodone HCl 150 mg 06/30/25 21:00 07/08/25 21:24 Trazodone Hcl 50 Mg Tablet PO 150 mg HS KEYUR Administration Radiology Results: ITS Impressions Abdomen/Pelvis CT 06/28/25 19:37 IMPRESSION: 1. Postoperative change of prior Whipple procedure with proximal 24 cm ill- defined soft tissue mass at the region of the resected head of the pancreas which severely narrows the main portal vein suspicious for recurrent pancreatic cancer. 2. Obstructing stones in the mid and distal right ureter with mild right hydronephrosis. 3. Shrunken nodular cirrhotic liver. 4. Diffuse colonic wall thickening, severe in the proximal colon. Differential would include colitis either infectious, inflammatory or ischemic in etiology or edema secondary to liver disease or portal venous hypertension. 5. Small to moderate-sized bilateral pleural effusions, diffuse mild mesenteric and body wall edema and small amount of ascites. Retrograde Pyelogram 06/30/25 16:09 IMPRESSION: 1. Right internal ureteral stent placement. Please refer to real-time procedural findings for details. Chest X-Ray 07/03/25 17:18 Impression: 1: Interval development of bilateral perihilar and basilar airspace disease, suspicious for pneumonia. Modified Barium Swallow 07/06/25 10:45 IMPRESSION: Fragile dysphagia laryngeal penetration without aspiration. Please correlate with speech pathologist findings and specific feeding recommendations. Abdomen X-Ray 07/06/25 13:17 Impression: 1: No acute abdominal abnormality. Labs Labs: Laboratory Results - last 24 hr 07/08/25 07/09/25 12:54 05:52 WBC 7.5 RBC 4.58 L Hgb 12.6 L Hct 39.2 L MCV 85.6 MCH 27.5 MCHC 32.1 RDW 17.1 H Plt Count 168 MPV 10.1 Sodium 136 L 136 L Potassium 3.0 L 3.1 L Chloride 102 103 Carbon Dioxide 28 30 Anion Gap 6 3 L BUN 16 15 Creatinine 0.56 L 0.59 L Estim Creat Clear Calc 96 99 Estimated GFR > 60 > 60 Glucose 100 88 Calcium 8.2 L 7.7 L Magnesium 2.0 1.9
[2025-07-09] MEDS: DULoxetine HCL 60 MG CAPSULE.DR PO (09:15)
[2025-07-09] MEDS: FINASTERIDE 5 MG TABLET PO (09:15)
[2025-07-09] MEDS: ENOXAPARIN 40 MG/0.4 ML SYRINGE SUB-Q (09:15)
[2025-07-09] MEDS: POTASSIUM CHLORIDE 20 MEQ PACKET (FOR LIQUID) 40 MEQ PO (09:15)
[2025-07-09 11:57] LABS: Anion Gap 4 mmol/L (4-12); Blood Urea Nitrogen 15 mg/dL (9-20); Calcium 8.1 mg/dL (8.4-10.2); Carbon Dioxide 31 mmol/L (22-30); Chloride 101 mmol/L (98-107); Estimated CRCL calculation 98 ml/min; Estimated Glomerular Filt Rate > 60; Glucose 102 mg/dL (65-110); Potassium 3.5 mmol/L (3.4-5.0); Sodium 136 mmol/L (137-145)
[2025-07-09 14:00] VITALS: BP 123/74; PULSE 78; RESP 16; TEMP 36.4; O2SAT 98
[2025-07-09 20:29] VITALS: BP 143/85; PULSE 82; RESP 18; TEMP 36.6; O2SAT 96
[2025-07-09] MEDS: TAMSULOSIN HCL 0.4 MG CAPSULE PO (21:01)
[2025-07-09] MEDS: clonazePAM (*CRX) 0.5 MG TABLET PO (21:01)
--- NOTE | 2025-07-09 21:19 | PC.NURSE ---
Thuy from [facility] reports still waiting on a bed for patient.
[2025-07-10] MEDS: HYDROcodone/acetaminophen (*CRX) 5-325 MG TABLET 1 TAB PO ×2 (01:55→09:30)
[2025-07-10 04:57] VITALS: BP 131/90; PULSE 88; RESP 16; TEMP 36.5; O2SAT 97
[2025-07-10] MEDS: FINASTERIDE 5 MG TABLET PO (09:30)
[2025-07-10] MEDS: DULoxetine HCL 60 MG CAPSULE.DR PO (09:30)
[2025-07-10] MEDS: ENOXAPARIN 40 MG/0.4 ML SYRINGE SUB-Q (09:31)
[2025-07-10] MEDS: MORPHINE SULFATE (*CRX) 2 MG/ML INJ IV PUSH (11:38)
--- NOTE | 2025-07-10 11:59 | PCPTNOTE ---
Attempted to see patient for PT, however patient declined due to abdominal pain. RN aware and gave pain medication.
[2025-07-10 14:00] VITALS: BP 102/60; PULSE 79; RESP 16; TEMP 36.4; O2SAT 98
--- NOTE | 2025-07-11 09:02 | PM.TDS ---
Transfer Discharge Sum: Prov Provider Date of admission: 06/30/25 09:16 Primary care physician: Anthony Gil MD Admitting clinician: Deven Miller MD Attending physician on admission: Jeb Miller Consults: 06/30/25 09:20 Consult to Physician Routine Comment: Consulting Provider: Morales Prater Reason for consultation: right mid ureteral stone. Has provider been notified: Yes Attending physician on discharge: Lavinia Larsen Discharging clinician: Lavinia Larsen Anticipated date of transfer: 07/10/25 Receiving physician/facility: [facility] DS: Admitting Diagnosis Discharge Date 07/10/25 Admitting Diagnosis Abdominal pain, diarrhea DS: Discharge Diagnosis Discharge Diagnosis (1) Pancreatic mass: Code(s): K86.89 - Other specified diseases of pancreas Status: Acute Plan 75-year-old male with history of pancreatic cancer status post Whipple procedure presents to [facility] ER on 06/30/2025 with a complaint of diarrhea and abdominal pain. CT abdomen pelvis showed postoperative change of the prior Whipple procedure with proximal ill-defined soft tissue mass which severely narrows the main portal vein suspicious for recurrent pancreatic cancer. Treated for aspiration pneumonia with Unasyn and Augmentin. Treated for UTI Klebsiella pneumonia with Augmentin. Calculus of a right ureter, status post ureteral stent placement on 06/30, definitive management in the future. Flomax and Proscar continued for BPH, diarrhea self-resolving, clonazepam and duloxetine continued for anxiety. Leg swelling resolved status post Lasix x1, likely due to fluid administration. Hypokalemia resolved status post replacement. On 07/10/2025 the patient is transferred to [place] for further evaluation and management of likely recurrent pancreatic cancer. All of his questions and concerns were answered to satisfaction. He was full code during the admission. Transfer Discharge Sum: Med Medications Active and Home Medications: Home Medications clonazepam 0.5 mg tablet 0.5 mg PO HS 06/29/25 [History Confirmed 06/29/25] duloxetine 60 mg capsule,delayed release 60 mg PO DAILY@0800 06/29/25 [History Confirmed 06/29/25] finasteride 5 mg tablet 5 mg PO DAILY@0800 06/29/25 [History Confirmed 06/29/25] tamsulosin 0.4 mg capsule 0.4 mg PO HS 06/29/25 [History Confirmed 06/29/25] trazodone 150 mg tablet 150 mg PO HS 06/29/25 [History Confirmed 06/29/25] Transfer Discharge Sum: Hosp Hospital Course Hospital course: Micah Hi is a 75 year old male Patient Condition: Stable Time Spent with Patient Time attestation: Total time spent providing and/or coordinating transfer services: Exam Const: General: comfortable and no acute distress HENMT: Mouth: Yes moist mucous membranes Eyes: Pupils: Equal, round and reactive pupils present Neck: Neck: supple Resp: Effort & Inspection: normal respiratory effort Auscultation: clear to auscultation bilaterally Cardio: Rate: regular rate Rhythm: regular rhythm GI: Inspection: distended GI Palp: Yes Soft to palpation and Yes Tenderness to palpation present (GI) (Mild tenderness mid to right upper quadrant) : General: Yes bladder normal to palpation Extrem: General: no edema DS: Data Data Completed and Pending Completed studies during hospitalization: Pending at discharge 06/30/25 15:20 Surgical [PTH] Routine
== END 2025-07-10 18:05 | disposition short-term general hospital (02) | DRG 659 ==
LOC: ANHED 06-30 09:14 → ANH3MED 06-30 09:30
PROVIDERS: Emergency Medicine; Internal Medicine; Nurse Practitioner Adult Health; Nurse Practitioner Gerontology; Physician Assistant; Urology; Admitting Provider Internal Medicine; Emergency Provider Family Medicine; PCP Family Medicine; Visit Provider General Practice
PROC: 0T768DZ Dilation of Right Ureter with Intraluminal Device, Via Natural or Artificial Opening Endoscopic (ICD-10-PCS; CPT 52352; principal; 2025-06-30 14:30)
DX: N20.1 Calculus of ureter (principal); E43 Unspecified severe protein-calorie malnutrition; J69.0 Pneumonitis due to inhalation of food and vomit; N39.0 Urinary tract infection, site not specified; B96.1 Klebsiella pneumoniae [K. pneumoniae] as the cause of diseases classified elsewhere; E87.6 Hypokalemia; F41.9 Anxiety disorder, unspecified; K86.9 Disease of pancreas, unspecified; M79.89 Other specified soft tissue disorders; N40.0 Benign prostatic hyperplasia without lower urinary tract symptoms; R19.7 Diarrhea, unspecified; Z85.07 Personal history of malignant neoplasm of pancreas; Z87.891 Personal history of nicotine dependence; Z68.21 Body mass index [BMI] 21.0-21.9, adult
CPT/HCPCS: 36415; 71045; 74018; 74177; 74230; 74420; 80048; 80053; 81001; 82365; 82948; 83605; 83690; 83735; 84145; 85025; 85027; 85055; 86140; 87045; 87046; 87086; 87186; 87427; 88300; 92526; 92610; 92611; 93005; 94640; 94667; 94669; 97110; 97162; 97166; 97530; 99285; J0690; A9270; C1758; C1769; C2617; J0295; J0696; J1650; J1938; J2003; J2270; J2371; J2405; J2704; J3010; J3480; J7030; J7040; J7120; Q9966; Q9967